=== PATIENT | female | born 1980 | race African-American/Black ===

== ENCOUNTER 2016-12-17 20:57 | Emergency (ER) | payer BC ==
--- NOTE | 2016-12-17 21:09 | ER Document Report ---
ED Medical Screen (RME) - General Stated Complaint: HAND NUMBNESS DIZZY Mode of Arrival: Medic Information source: Emergency Med Personnel Notes: pt presents to the ED for cp, hands/feet hurt, dizzy for the past two weeks. Pt is a diabetic, reports took her insulin right before ems arrived. Denies vomiting, reports some diarrhea. Reports hx of HTN, enlarged heart. Pt reports cough. Has nitro at home but reports she has not taken it because it hasn't hurt for years. I have greeted and performed a rapid initial assessment of this patient. A comprehensive ED assessment and evaluation of the patient, analysis of test results and completion of the medical decision making process will be conducted by additional ED providers. TRAVEL OUTSIDE OF THE [place] IN LAST 30 DAYS: No - Related Data Allergies/Adverse Reactions: Penicillins Allergy (Verified 06/30/16 11:42) onion Allergy (Uncoded 06/30/16 11:42) Past Medical History - Past Medical History Cardiac Medical History: Reports: Hx Hypercholesterolemia, Hx Hypertension - out of Lisinopril for over a week, takes 20mg daily Denies: Hx Congestive Heart Failure, Hx Heart Attack Pulmonary Medical History: Denies: Hx Asthma, Hx Bronchitis, Hx COPD, Hx Pneumonia, Hx Tuberculosis Neurological Medical History: Denies: Hx Seizures Endocrine Medical History: Reports: Hx Diabetes Mellitus Type 2 - on Lantus, she does not have a PCM Renal/ Medical History: Reports: Hx Kidney Stones. Denies: Hx End Stage Renal Disease GI Medical History: Denies: Hx Cirrhosis, Hx Gastroesophageal Reflux Disease, Hx Ulcer Musculoskeltal Medical History: Denies Hx Arthritis, Denies Hx Multiple Sclerosis Psychiatric Medical History: Denies: Hx Bipolar Disorder, Hx Depression, Hx Schizophrenia Past Surgical History: Reports: Hx Cardiac Catheterization, Hx Gynecologic Surgery - Immunizations Hx Diphtheria, Pertussis, Tetanus Vaccination: No
[2016-12-17] MEDS ORDERED: ASPIRIN 81 MG TABLET, CHEWABLE PO ONE (21:10)
[2016-12-17 22:11] LABS: ABSOLUTE BASOPHILS # (AUTO) 0.1 10^3/uL (0.0-0.2); ABSOLUTE EOSINOPHILS # (AUTO) 0.1 10^3/uL (0.0-0.6); ABSOLUTE LYMPHOCYTES (AUTO) 2.8 10^3/uL (0.5-4.7); ABSOLUTE MONOCYTES (AUTO) 0.9 10^3/uL (0.1-1.4); ABSOLUTE NEUT (AUTO) 6.8 10^3/uL (1.7-8.2); BASOPHILS % (AUTO) 0.7 % (0-2); EOSINOPHILS % (AUTO) 0.8 % (0-6); HEMATOCRIT 41.4 % (36.0-47.0); HEMOGLOBIN 13.2 g/dL (12.0-15.5); HGB HCT DIFFERENCE -1.8; LYMPHOCYTES % (AUTO) 26.1 % (13-45); MEAN CORPUSCULAR HGB CONC 31.8 g/dL (32.0-36.0); MEAN CORPUSCULAR VOLUME 85 fl (80-97); MONOCYTES % (AUTO) 8.5 % (3-13); RED BLOOD COUNT 4.89 10^6/uL (3.72-5.28); SEGMENTED NEUTROPHILS % (AUTO) 63.9 % (42-78); WHITE BLOOD COUNT 10.6 10^3/uL (4.0-10.5)
[2016-12-17 22:27] LABS: ALANINE AMINOTRANSFERASE 34 U/L (9-52); ALBUMIN 3.9 g/dL (3.5-5.0); ALKALINE PHOSPHATASE 159 U/L (38-126); ANION GAP 10 (5-19); ASPARTATE AMINO TRANSFERASE 25 U/L (14-36); BILIRUBIN,TOTAL 0.5 mg/dL (0.2-1.3); BLOOD UREA NITROGEN 18 mg/dL (7-20); CALCIUM 9.5 mg/dL (8.4-10.2); CARBON DIOXIDE 29 mmol/L (22-30); CHLORIDE 95 mmol/L (98-107); CREATINE KINASE 59 U/L (30-135); CREATININE RESULT 0.77 mg/dL (0.52-1.25); GLUCOSE 352 mg/dL (75-110); POTASSIUM 3.8 mmol/L (3.6-5.0); SODIUM 133.8 mmol/L (137-145); TOTAL PROTEIN 8.2 g/dL (6.3-8.2)
[2016-12-17 22:38] LABS: APPEARANCE,URINE SLIGHTLY-CLOUDY; BILIRUBIN,URINE NEGATIVE (NEGATIVE); GLUCOSE, URINE >=500 mg/dL (NEGATIVE); KETONES,URINE NEGATIVE (NEGATIVE); LEUKOCYTE ESTERASE,URINE NEGATIVE (NEGATIVE); NITRITE,URINE NEGATIVE (NEGATIVE); PROTEIN,URINE 30 mg/dL (NEGATIVE); UROBILINOGEN,URINE NEGATIVE mg/dL (<2.0)
[2016-12-17 22:39] LABS: CREATINE KINASE MB 0.42 ng/mL (<4.55)
[2016-12-17 22:42] LABS: TROPONIN I < 0.012 ng/mL
--- NOTE | 2016-12-17 23:48 | EKG REPORT ---
SEVERITY:- ABNORMAL ECG - SINUS RHYTHM CONSIDER LEFT VENTRICULAR HYPERTROPHY : Confirmed by: Ashia Dick 17-Dec-2016 23:47:27
--- NOTE | 2016-12-18 01:19 | ER Document Report ---
ED General - General Chief Complaint: Chest Pain Stated Complaint: HAND NUMBNESS DIZZY Mode of Arrival: Medic Notes: Patient is a 36-year-old morbidly obese female with past medical history of poorly controlled type II diabetes who presents with complaints of 2 weeks of progressively worsening generalized fatigue. She also notes intermittent chest pain that she has had a daily basis for "forever" and denies anything is new or different about that chest pain today. Denies any pain at the time of my assessment. Patient states that tonight she began to feel increasingly fatigued and had an episode of chest pain which prompted her to come to the emergency department. She is with her primary care doctor regarding her extremely poorly controlled diabetes. She has not noted that anything improves or worsens her symptoms. Admits that she does not regularly check her blood glucose at home. She has no prior history of HHS or DKA. No history of DVT or pulmonary embolus. She does not use any supplemental estrogen. She denies any shortness of breath, hemoptysis, vomiting, diarrhea, or fever. No headache or neck pain. TRAVEL OUTSIDE OF THE [place] IN LAST 30 DAYS: No - Related Data Allergies/Adverse Reactions: Penicillins Allergy (Verified 06/30/16 11:42) onion Allergy (Uncoded 06/30/16 11:42) Home Medications: Current Home Medications Acyclovir [Acyclovir] 400 mg PO BID 12/18/16 [History] Atorvastatin Calcium [Atorvastatin Calcium] 20 mg PO DAILY 12/18/16 [History] Ergocalciferol (Vitamin D2) [Vitamin D] 1 cap PO DAILY 12/18/16 [History] Glimepiride [Glimepiride] 4 mg PO BID 12/18/16 [History] Losartan/Hydrochlorothiazide [Hyzaar 50-12.5 Tablet] 1 tab PO DAILY 12/18/16 [ History] RX: Insulin Glargine,Hum.rec.anlog [Lantus Insulin 100 Unit/mL] 10 unit SUBCUT QAM 12/18/16 [History] Past Medical History - General Information source: Patient, Emergency Med Personnel - Social History Smoking Status: Never Smoker Chew tobacco use (# tins/day): No Frequency of alcohol use: None Drug Abuse: None Family History: CAD, CVA Patient has suicidal ideation: No Patient has homicidal ideation: No - Past Medical History Cardiac Medical History: Reports: Hx Hypercholesterolemia, Hx Hypertension - out of Lisinopril for over a week, takes 20mg daily Denies: Hx Congestive Heart Failure, Hx Heart Attack Pulmonary Medical History: Denies: Hx Asthma, Hx Bronchitis, Hx COPD, Hx Pneumonia, Hx Tuberculosis Neurological Medical History: Denies: Hx Seizures Endocrine Medical History: Reports: Hx Diabetes Mellitus Type 2 - on Lantus, she does not have a PCM Renal/ Medical History: Reports: Hx Kidney Stones. Denies: Hx End Stage Renal Disease, Hx Peritoneal Dialysis GI Medical History: Denies: Hx Cirrhosis, Hx Gastroesophageal Reflux Disease, Hx Ulcer Musculoskeltal Medical History: Denies Hx Arthritis, Denies Hx Multiple Sclerosis Psychiatric Medical History: Denies: Hx Bipolar Disorder, Hx Depression, Hx Schizophrenia Past Surgical History: Reports: Hx Cardiac Catheterization, Hx Genitourinary Surgery - vaginal surgery age 20, Hx Gynecologic Surgery - Immunizations Hx Diphtheria, Pertussis, Tetanus Vaccination: No Hx Pneumococcal Vaccination: 09/10/13 Review of Systems - Review of Systems Notes: Constitutional: Negative for fever. Positive for generalized fatigue HENT: Negative for sore throat. Eyes: Negative for visual changes. Cardiovascular: Positive for chest pain. Respiratory: Negative for shortness of breath. Gastrointestinal: Negative for abdominal pain, vomiting or diarrhea. Genitourinary: Negative for dysuria. Musculoskeletal: Negative for back pain. Skin: Negative for rash. Neurological: Negative for headaches, weakness or numbness. 10 point ROS negative except as marked above and in HPI. Physical Exam - Vital signs Vitals: Temp Pulse Resp BP Pulse Ox 97.2 F 100 16 138/106 H 98 12/17/16 21:08 12/17/16 21:08 12/17/16 21:08 12/17/16 21:08 12/17/16 21:08 Interpretation: Normal Notes: PHYSICAL EXAMINATION: GENERAL: Morbidly obese but in no acute distress HEAD: Atraumatic, normocephalic. EYES: Pupils equal round and reactive to light, extraocular movements intact, sclera anicteric, conjunctiva are normal. ENT: nares patent, oropharynx clear without exudates. Moist mucous membranes. NECK: Normal range of motion, supple without lymphadenopathy LUNGS: Breath sounds clear to auscultation bilaterally and equal. No wheezes rales or rhonchi. HEART: Regular rate and rhythm without murmurs ABDOMEN: Morbidly obese abdomen, Soft, nontender, normoactive bowel sounds. No guarding, no rebound. No masses appreciated. EXTREMITIES: Normal range of motion, no pitting or edema. No cyanosis. NEUROLOGICAL: No focal neurological deficits. Moves all extremities spontaneously and on command. PSYCH: Normal mood, normal affect. SKIN: Warm, Dry, normal turgor, no rashes or lesions noted. Course - Re-evaluation Re-evalutation: 12/18/16 01:17 Presentation of hypoglycemia and generalized fatigue without evidence of diabetic ketoacidosis or hyperosmolar hyperglycemic state on laboratories. Patient well appearing, in no acute distress, vitals within normal limits. No focal infectious symptoms to warrant infectious workup at this time. Tolerating oral intake without difficulty. Patient did also complain of chest pain today which she states is a chronic, daily event for her. Presentation of chest pain in an otherwise well appearing patient. Low clinical suspicion for ACS given clinical history, exam, EKG without ST elevations or depressions, and negative initial troponin. HEART score less than or equal to 3. PE also seems unlikely given clinical history, absence of tachycardia or dyspnea. Patient is PERC criteria negative. CXR without evidence of pneumothorax or pneumonia. No widened mediastinum. Aortic dissection also seems unlikely given history, symmetric pulses, CXR, and vitals. At this time will discharge with return precautions and follow-up recommendations. Verbal discharge instructions given a the bedside and opportunity for questions given. Medication warnings reviewed. Patient is in agreement with this plan and has verbalized understanding of return precautions and the need for primary care follow-up in the next 24-72 hours. - Vital Signs Vital signs: Temp Pulse Resp BP Pulse Ox 97.2 F 88 18 140/98 H 100 12/17/16 21:08 12/18/16 02:00 12/18/16 02:00 12/18/16 02:00 12/18/16 02:00 - Laboratory Result Diagrams: 12/17/16 21:45 12/17/16 21:45 Laboratory results interpreted by me: 12/17/16 12/17/16 12/17/16 21:45 21:45 21:47 WBC 10.6 H MCHC 31.8 L Sodium 133.8 L Chloride 95 L Glucose 352 H POC Glucose 317 H Alkaline Phosphatase 159 H Urine Protein Urine Glucose (UA) Urine Ascorbic Acid 12/17/16 22:18 WBC MCHC Sodium Chloride Glucose POC Glucose Alkaline Phosphatase Urine Protein 30 H Urine Glucose (UA) >=500 H Urine Ascorbic Acid 20 H - Diagnostic Test Radiology reviewed: Image reviewed, Reports reviewed Radiology results interpreted by me: 12/18/16 01:18 Chest x-ray: No acute infiltrate - EKG Interpretation by Me Additional EKG results interpreted by me: 12/18/16 01:18 Normal sinus rhythm. Rate 94. No ST elevations or depressions. QTC is 461. Discharge - Discharge Clinical Impression: Hyperglycemia Chest pain Qualifiers: Chest pain type: unspecified Qualified Code(s): R07.9 - Chest pain, unspecified Condition: Good Disposition: HOME, SELF-CARE Additional Instructions: You need to followup urgently with your primary care doctor as your blood sugars were dangerously high today. You did not have any evidence of a dangerous condition associated with these blood sugars at this time. However, it is very important that you get your blood sugars under control. Please take all of your medications exactly as directed. You should avoid foods that are high in carbohydrates and sugary foods. Losing weight will also help to better control your blood sugars. Please return to emergency department immediately if you develop weakness, persistent vomiting, confusion, or any other symptoms that are concerning to you. You were seen today for chest pain. The exact cause of your pain is unclear. However, based on your cardiac enzyme testing, chest x-ray, and EKG it does not appear that it is from an immediately life-threatening cause at this time. Although your testing here is normal is critical that you follow-up with your primary care physician for continued evaluation of this chest pain and possible stress testing. I recommended you see your physician within the next 24-48 hours to be evaluated for consideration of a stress test. Please return to emergency department immediately if you have worsening of your chest pain, shortness of breath, vomiting, become unable to exert yourself due to pain or difficulty breathing, you pass out, or have any pain that radiates into your arms, jaw, or back. Please also return if you have any additional symptoms that are concerning to you. Forms: Return to Work
[2016-12-18 02:12] VITALS: BP 140/98
== END 2016-12-18 02:03 | disposition home or self-care (01) ==
LOC: ER 20:57
DX: R07.9 Chest pain, unspecified (principal); R53.83 Other fatigue; E11.65 Type 2 diabetes mellitus with hyperglycemia; I10 Essential (primary) hypertension; E66.01 Morbid (severe) obesity due to excess calories; Z68.41 Body mass index [BMI] 40.0-44.9, adult; Z88.0 Allergy status to penicillin; Z91.018 Allergy to other foods; Z82.49 Family history of ischemic heart disease and other diseases of the circulatory system
CPT/HCPCS: 36415; 71020; 80053; 81001; 82550; 82553; 82962; 84484; 84703; 85025; 93005; 93010; 99285

== ENCOUNTER 2017-07-10 07:21 | Emergency (ER) | payer SELFPAY ==
[2017-07-10] MEDS ORDERED: BUPIVACAINE HCL 0.5 % INJ/PF 30 ML SDV INJ ONE (08:30)
[2017-07-10] MEDS ORDERED: LIDOCAINE 1% INJ-PF (10 MG/ML) 30 ML SDV INFIL ONE (08:30)
[2017-07-10] MEDS ORDERED: LIDOCAINE 4%/TETRACAINE 0.5%/EPI 0.18% 5 ML TOPICAL SOLN TOP ONE (08:30)
[2017-07-10] MEDS ORDERED: HYDROMORPHONE HCL INJ/PF 2 MG/ML AMPULE IM ONE (08:30)
[2017-07-10] MEDS ORDERED: ONDANSETRON 4 MG TAB.RAPDIS PO ONE (08:30)
[2017-07-10] MEDS ORDERED: SULFAMETHOXAZOLE/TRIMETHOPRIM 800-160 MG TABLET PO ONE (08:56)
--- NOTE | 2017-07-10 10:07 | ER Document Report ---
ED General - General Chief Complaint: Other Stated Complaint: GROIN PAIN Time Seen by Provider: 07/10/17 08:35 TRAVEL OUTSIDE OF THE [place] IN LAST 30 DAYS: No - HPI Patient complains to provider of: bartholin abscess Notes: Patient coming in for complaint of cough and abscess in the vaginal region. Patient states history of diabetes history of multiple abscesses in the past. Patient denies any fevers chills nausea vomiting. Patient states she has had at least for I&D is done. Patient states nonproductive cough ongoing for greater than a month. Patient states no production. Patient is resting comfortably upon my evaluation. - Related Data Allergies/Adverse Reactions: Penicillins Allergy (Verified 07/10/17 07:32) onion Allergy (Uncoded 07/10/17 07:32) Past Medical History - Social History Smoking Status: Former Smoker Chew tobacco use (# tins/day): No Frequency of alcohol use: None Drug Abuse: None Family History: CAD, CVA - Past Medical History Cardiac Medical History: Reports: Hx Hypercholesterolemia, Hx Hypertension - out of Lisinopril for over a week, takes 20mg daily Denies: Hx Congestive Heart Failure, Hx Heart Attack Pulmonary Medical History: Denies: Hx Asthma, Hx Bronchitis, Hx COPD, Hx Pneumonia, Hx Tuberculosis Neurological Medical History: Denies: Hx Seizures Endocrine Medical History: Reports: Hx Diabetes Mellitus Type 2 - on Lantus, she does not have a PCM Renal/ Medical History: Reports: Hx Kidney Stones. Denies: Hx End Stage Renal Disease, Hx Peritoneal Dialysis GI Medical History: Denies: Hx Cirrhosis, Hx Gastroesophageal Reflux Disease, Hx Ulcer Musculoskeltal Medical History: Denies Hx Arthritis, Denies Hx Multiple Sclerosis Psychiatric Medical History: Denies: Hx Bipolar Disorder, Hx Depression, Hx Schizophrenia Past Surgical History: Reports: Hx Cardiac Catheterization, Hx Genitourinary Surgery - vaginal surgery age 20, Hx Gynecologic Surgery - Immunizations Hx Diphtheria, Pertussis, Tetanus Vaccination: No Hx Pneumococcal Vaccination: 09/10/13 Review of Systems - Review of Systems Constitutional: No symptoms reported EENT: No symptoms reported Cardiovascular: No symptoms reported Respiratory: No symptoms reported Gastrointestinal: No symptoms reported Genitourinary: Other - Vaginal abscess Female Genitourinary: No symptoms reported Musculoskeletal: No symptoms reported Skin: No symptoms reported Hematologic/Lymphatic: No symptoms reported Neurological/Psychological: No symptoms reported Physical Exam - Vital signs Vitals: Temp Pulse Resp BP Pulse Ox 98.2 F 99 18 150/102 H 98 07/10/17 07:30 07/10/17 07:30 07/10/17 07:30 07/10/17 07:30 07/10/17 07:30 Interpretation: Normal - General General appearance: Appears well, Alert - HEENT Head: Normocephalic, Atraumatic Eyes: Normal Pupils: PERRL - Respiratory Respiratory status: No respiratory distress Chest status: Nontender Breath sounds: Normal Chest palpation: Normal - Cardiovascular Rhythm: Regular Heart sounds: Normal auscultation Murmur: No - Abdominal Inspection: Normal Distension: No distension Bowel sounds: Normal Tenderness: Nontender Organomegaly: No organomegaly - Genitourinary External exam: Other - Patient with a Bartholin gland abscess on the left labia - Back Back: Normal, Nontender - Extremities General upper extremity: Normal inspection, Nontender, Normal color, Normal ROM , Normal temperature General lower extremity: Normal inspection, Nontender, Normal color, Normal ROM , Normal temperature, Normal weight bearing. No: Ronal's sign - Neurological Neuro grossly intact: Yes Cognition: Normal Orientation: AAOx4 [place] Coma Scale Eye Opening: Spontaneous [place] Coma Scale Verbal: Oriented [place] Coma Scale Motor: Obeys Commands Marsha Coma Scale Total: 15 Speech: Normal Motor strength normal: LUE, RUE, LLE, RLE Sensory: Normal - Psychological Associated symptoms: Normal affect, Normal mood - Skin Skin Temperature: Warm Skin Moisture: Dry Skin Color: Normal Course - Re-evaluation Re-evalutation: 07/10/17 14:15 I&D performed without difficulty. Patient's lungs are clear. Will discharge patient home. - Vital Signs Vital signs: Temp Pulse Resp BP Pulse Ox 98.3 F 90 16 141/99 H 97 07/10/17 07:30 07/10/17 10:30 07/10/17 10:30 07/10/17 10:30 07/10/17 10:30 Procedures - Incision and Drainage Left Labia Type: Simple Anesthetic type: 1% Lidocaine, 0.5% Bupivacaine mL's of anesthetic: 5 Blade size: 11 I&D procedure: Chlorprep applied Incision Method: Incision made by scalpel Amount/type of drainage: 8 cc of pus Notes: 07/10/17 14:16 Patient's abscess was flushed to clear Wurd catheter placed Discharge - Discharge Clinical Impression: Bartholin's gland abscess Condition: Good Disposition: HOME, SELF-CARE Instructions: Bartholin Gland Cyst or Abscess ([facility]), Ob-Multimedia Coordinator Doctors, Post Incision and Drainage, Trimethoprim-Sulfa ([facility]) Additional Instructions: Take medication as prescribed. Return to ER symptoms worsen. Highly recommend that she had the Mercer catheter removed in 5 days if it does not fall out on its own. You may follow-up with the COUNTING MACHINE OPERATOR is listed or you can return to the ER to have the catheter removed please note that returns to ER with involving other ER visit wait time etc. Prescriptions: Sulfamethoxazole/Trimethoprim [Bactrim 400-80 mg Tablet] 1 each PO BID 7 Days tablet Tramadol HCl [Ultram 50 mg Tablet] 50 mg PO ASDIR PRN #14 tablet PRN Reason: Forms: Return to Work Referrals: LUCIO ENRIQUE PA-C [Primary Care Provider] - Follow up as needed
[2017-07-10 10:51] VITALS: BP 141/99
== END 2017-07-10 10:30 | disposition home or self-care (01) ==
LOC: ER 07:21
PROC: 0U9L0ZZ Drainage of Vestibular Gland, Open Approach (ICD-10-PCS; principal; 2017-07-10)
DX: N75.1 Abscess of Bartholin's gland (principal); R05 Cough; E11.9 Type 2 diabetes mellitus without complications; I10 Essential (primary) hypertension; Z88.0 Allergy status to penicillin; Z91.018 Allergy to other foods; Z87.891 Personal history of nicotine dependence
CPT/HCPCS: 99283; 96372; 56420; S0119; J1170; J3490

== ENCOUNTER 2017-09-09 10:57 | Inpatient (IN) | payer SELFPAY ==
[2017-09-09] MEDS ORDERED: HYDROCHLOROTHIAZIDE 12.5 MG CAPSULE PO ONE (11:39)
[2017-09-09] MEDS ORDERED: MORPHINE SULFATE 10 MG/ML INJ IV ONE (11:39)
[2017-09-09] MEDS ORDERED: GLIMEPIRIDE 4 MG TABLET PO ONE (11:39)
[2017-09-09] MEDS ORDERED: LOSARTAN POTASSIUM 50 MG TABLET PO ONE (11:39)
--- NOTE | 2017-09-09 11:44 | ER Document Report ---
HPI - HPI Patient complains to provider of: Abscess Onset: Last week Onset/Duration: Worse Quality of pain: Sharp Pain Level: 4 Context: Patient complains of abscess to left buttock into the left perirectal area. Patient denies any fever. Patient reports a history of diabetes. Patient states she has been out of her medication for several months because she cannot afford the refills due to a lapse in her insurance. Associated Symptoms: Other - Abscess to buttock. denies: Fever Exacerbated by: Movement Relieved by: Denies Similar symptoms previously: No Recently seen / treated by doctor: No - ROS ROS below otherwise negative: Yes Systems Reviewed and Negative: Yes All other systems reviewed and negative - CONSTITUTIONAL Constitutional: DENIES: Fever, Chills - EENT EENT: DENIES: Sore Throat, Ear Pain, Eye problems - CARDIOVASCULAR Cardiovascular: DENIES: Chest pain - RESPIRATORY Respiratory: DENIES: Trouble Breathing, Coughing - GASTROINTESTINAL Gastrointestinal: REPORTS: Black / Bloody Stools - open areas x2. DENIES: Abdominal Pain - URINARY Urinary: DENIES: Dysuria, Urgency, Frequency - REPRODUCTIVE Reproductive: DENIES: : - MUSCULOSKELETAL Musculoskeletal: DENIES: Extremity pain - DERM Notes: Abscess to buttocks Past Medical History - General Information source: Patient - Social History Smoking Status: Former Smoker Chew tobacco use (# tins/day): No Frequency of alcohol use: None Drug Abuse: None Occupation: [employer] Family History: CAD, CVA Patient has suicidal ideation: No Patient has homicidal ideation: No - Past Medical History Cardiac Medical History: Reports: Hx Hypercholesterolemia, Hx Hypertension - out of Lisinopril for over a week, takes 20mg daily Denies: Hx Congestive Heart Failure, Hx Heart Attack Pulmonary Medical History: Denies: Hx Asthma, Hx Bronchitis, Hx COPD, Hx Pneumonia, Hx Tuberculosis Neurological Medical History: Denies: Hx Seizures Endocrine Medical History: Reports: Hx Diabetes Mellitus Type 2 - on Lantus, she does not have a PCM Renal/ Medical History: Reports: Hx Kidney Stones. Denies: Hx End Stage Renal Disease, Hx Peritoneal Dialysis GI Medical History: Denies: Hx Cirrhosis, Hx Gastroesophageal Reflux Disease, Hx Ulcer Musculoskeltal Medical History: Denies Hx Arthritis, Denies Hx Multiple Sclerosis Psychiatric Medical History: Denies: Hx Bipolar Disorder, Hx Depression, Hx Schizophrenia Past Surgical History: Reports: Hx Cardiac Catheterization, Hx Genitourinary Surgery - vaginal surgery age 20, Hx Gynecologic Surgery - Immunizations Hx Diphtheria, Pertussis, Tetanus Vaccination: No Hx Pneumococcal Vaccination: 09/10/13 Vertical Provider Document - CONSTITUTIONAL Agree With Documented VS: Yes Exam Limitations: No Limitations General Appearance: WD/WN, No Apparent Distress - INFECTION CONTROL TRAVEL OUTSIDE OF THE [place] IN LAST 30 DAYS: No - HEENT HEENT: Atraumatic, Normocephalic - NECK Neck: Normal Inspection, Supple - RESPIRATORY Respiratory: Breath Sounds Normal, No Respiratory Distress O2 Sat by Pulse Oximetry: 99 - CARDIOVASCULAR Cardiovascular: Regular Rate, Regular Rhythm - MUSCULOSKELETAL/EXTREMETIES Musculoskeletal/Extremeties: MAEW - NEURO Level of Consciousness: Awake, Alert, Appropriate Motor/Sensory: No Motor Deficit - DERM Integumentary: Warm, Dry, Abscess Notes: Abscess to left buttock and left perirectal area, patient with mild tenderness with digital rectal exam. DESEAN Joiner as standby Course - Re-evaluation Re-evalutation: 09/09/17 11:43 Call placed for consultation with surgeon, surgeon currently in the case and nurse relayed through OR nurse. Dr. Cifuentes does agree to come and evaluate patient 09/09/17 13:25 Dr. Cifuentes requests consultation with hospitalist for medical management Call placed to Dr. Josue who advises consultation with nurse practitioner Esparto Consulted with [employer] - Vital Signs Vital signs: Temp Pulse Resp BP Pulse Ox 97.4 F 100 20 198/120 H 99 09/09/17 11:04 09/09/17 11:04 09/09/17 11:04 09/09/17 11:04 09/09/17 11:04 - Laboratory Result Diagrams: 09/09/17 12:00 09/09/17 12:00 Laboratory results interpreted by me: 09/09/17 20:20 Labs- Entire Visit 09/09/17 09/09/17 09/09/17 12:00 12:00 12:00 WBC 10.3 RBC 4.82 Hgb 13.5 Hct 41.3 MCV 86 MCH 28.0 MCHC 32.6 RDW 13.3 Plt Count 404 Seg Neutrophils % 71.6 Lymphocytes % 19.8 Monocytes % 6.9 Eosinophils % 0.8 Basophils % 0.9 Absolute Neutrophils 7.4 Absolute Lymphocytes 2.0 Absolute Monocytes 0.7 Absolute Eosinophils 0.1 Absolute Basophils 0.1 Sodium 138.4 Potassium 4.2 Chloride 98 Carbon Dioxide 29 Anion Gap 11 BUN 12 Creatinine 0.64 Est GFR ( Amer) > 60 Est GFR (Non-Af Amer) > 60 Glucose 445 H* POC Glucose Hemoglobin A1c % Calcium 9.3 Total Bilirubin 0.5 Direct Bilirubin 0.4 Neonat Total Bilirubin Not Reportable Neonat Direct Bilirubin Not Reportable Neonat Indirect Bili Not Reportable AST 35 ALT 21 Alkaline Phosphatase 197 H Total Protein 8.1 Albumin 3.8 Serum HCG, Qual NEGATIVE 09/09/17 09/09/17 09/09/17 12:00 15:58 17:51 WBC RBC Hgb Hct MCV MCH MCHC RDW Plt Count Seg Neutrophils % Lymphocytes % Monocytes % Eosinophils % Basophils % Absolute Neutrophils Absolute Lymphocytes Absolute Monocytes Absolute Eosinophils Absolute Basophils Sodium Potassium Chloride Carbon Dioxide Anion Gap BUN Creatinine Est GFR ( Amer) Est GFR (Non-Af Amer) Glucose POC Glucose 323 H 223 H Hemoglobin A1c % 13.9 H Calcium Total Bilirubin Direct Bilirubin Neonat Total Bilirubin Neonat Direct Bilirubin Neonat Indirect Bili AST ALT Alkaline Phosphatase Total Protein Albumin Serum HCG, Qual Discharge - Discharge Clinical Impression: Perirectal abscess Condition: Stable Disposition: ADMITTED OBSERVATION Admitting Provider: Hospitalist Unit Admitted: Medical Floor
[2017-09-09] MEDS ORDERED: LEVOFLOXACIN 750 MG/D5W RTU 750 MG/150 ML RTUPB IV ONE (12:15)
[2017-09-09] MEDS ORDERED: ONDANSETRON HCL INJ/PF 4 MG/2 ML SDV IV ONE (12:26)
[2017-09-09] MEDS ORDERED: ONDANSETRON HCL INJ/PF 4 MG/2 ML SDV ONE (12:27)
[2017-09-09 12:31] LABS: ABSOLUTE BASOPHILS # (AUTO) 0.1 10^3/uL (0.0-0.2); ABSOLUTE EOSINOPHILS # (AUTO) 0.1 10^3/uL (0.0-0.6); ABSOLUTE MONOCYTES (AUTO) 0.7 10^3/uL (0.1-1.4); ABSOLUTE NEUT (AUTO) 7.4 10^3/uL (1.7-8.2); BASOPHILS % (AUTO) 0.9 % (0-2); EOSINOPHILS % (AUTO) 0.8 % (0-6); HEMATOCRIT 41.3 % (36.0-47.0); HEMOGLOBIN 13.5 g/dL (12.0-15.5); HGB HCT DIFFERENCE -0.8; LYMPHOCYTES % (AUTO) 19.8 % (13-45); MEAN CORPUSCULAR HGB CONC 32.6 g/dL (32.0-36.0); MEAN CORPUSCULAR VOLUME 86 fl (80-97); MONOCYTES % (AUTO) 6.9 % (3-13); RED BLOOD COUNT 4.82 10^6/uL (3.72-5.28); RED CELL DISTRIBUTION WIDTH 13.3 % (11.5-14.0); SEGMENTED NEUTROPHILS % (AUTO) 71.6 % (42-78); WHITE BLOOD COUNT 10.3 10^3/uL (4.0-10.5)
[2017-09-09] MEDS ORDERED: DEXTROSE 40% GEL 15 GM TUBE PO PRN ×6 (13:01→18:11)
[2017-09-09] MEDS ORDERED: DEXTROSE 50%-WATER 25 GM/50 ML DISP.SYRIN IV PRN ×6 (13:01→18:11)
[2017-09-09] MEDS ORDERED: GLUCAGON,HUMAN RECOMB 1 MG INJ SUBCUT PRN ×2 (13:01→18:11)
[2017-09-09] MEDS ORDERED: ONDANSETRON 4 MG TAB.RAPDIS PO PRN (13:01)
[2017-09-09 13:02] LABS: ALANINE AMINOTRANSFERASE 21 U/L (9-52); ALBUMIN 3.8 g/dL (3.5-5.0); ALKALINE PHOSPHATASE 197 U/L (38-126); ANION GAP 11 (5-19); ASPARTATE AMINO TRANSFERASE 35 U/L (14-36); BILIRUBIN,DIRECT 0.4 mg/dL (0.0-0.4); BILIRUBIN,TOTAL 0.5 mg/dL (0.2-1.3); BLOOD UREA NITROGEN 12 mg/dL (7-20); CALCIUM 9.3 mg/dL (8.4-10.2); CARBON DIOXIDE 29 mmol/L (22-30); CHLORIDE 98 mmol/L (98-107); CREATININE RESULT 0.64 mg/dL (0.52-1.25); POTASSIUM 4.2 mmol/L (3.6-5.0); SODIUM 138.4 mmol/L (137-145); TOTAL PROTEIN 8.1 g/dL (6.3-8.2)
[2017-09-09 13:11] LABS: GLUCOSE 445 mg/dL (75-110)
[2017-09-09] MEDS ORDERED: METRONIDAZOLE 500 MG/NS RTU 250 MG in CONTAINER,EMPTY 1 EACH IV SCH (13:15)
[2017-09-09] MEDS ORDERED: INSULIN REG, HUMAN 100 UNIT/ML 3 ML VIAL (PYX) SUBCUT ONE ×2 (13:24→16:30)
[2017-09-09] MEDS ORDERED: GLUCAGON,HUMAN RECOMB 1 MG INJ IM PRN (13:36)
[2017-09-09] MEDS: METRONIDAZOLE 500 MG/NS RTU 100 ML IV SCH ×2 (15:00→22:16)
[2017-09-09] MEDS ORDERED: ENOXAPARIN SODIUM INJ 40 MG/0.4 ML DISP.SYRIN SUBCUT ONE (15:00)
[2017-09-09] MEDS ORDERED: AMLODIPINE BESYLATE 10 MG TABLET PO ONE (15:25)
[2017-09-09] MEDS ORDERED: HYDRALAZINE HCL INJ/PF 20 MG/1 ML SDV IV PRN ×2 (15:26→17:28)
--- NOTE | 2017-09-09 16:54 | PDOC CONSULTATION ---
Consultation Consult Date: 09/09/17 Attending physician:: BJORN STARR Consult reason:: medical management dm and HTN History of Present Illness Admission Date/PCP: 09/09/17 12:28 LUCIO ENRIQUE PA-C History of Present Illness: MEMO VEGA is a 37 year old female who is a morbidly obese female who came to the emergency room with persistent rectal abscesses who was seen by surgery. Since patient had a breakfast on the way to the ER her surgery was postponed until in the morning. Patient is a noncompliant diabetic has not been taking her insulin, high blood pressure medication due to no medical insurance. Patient has past medical history malignant hypertension, insulin- dependent diabetes poorly controlled, morbidly obesity, hydronephrosis, cardiomegaly, renal insufficiency, hyperkalemia, chronic chest pain. In the ER patient had a normal white count hemoglobin was stable. Electrolytes were stable except for glucose was 445, hemoglobin A1c was 13.9, calcium was 9.3 alkaline Willam was 197 patient had a negative test. Denies shortness of breath, chest pain, dizziness, lightheadedness, no nausea vomiting or constipation. Her only complaint is she has pain on her buttocks and rectal area. Blood pressure in the ER was found to be systolic was 208/110 Past Medical History Cardiac Medical History: Reports: Coronary Artery Disease, Hyperlipidema, Hypertension - out of Lisinopril for over a week, takes 20mg daily Denies: Congestive Heart Failure, Myocardial Infarction Pulmonary Medical History: Denies: Asthma, Bronchitis, Chronic Obstructive Pulmonary Disease (COPD), Pneumonia, Tuberculosis Neurological Medical History: Denies: Seizures Endocrine Medical History: Reports: Diabetes Mellitus Type 2 - on Lantus, she does not have a PCM, Obesity Renal/ Medical History: Reports: Chronic Kidney Disease Denies: End Stage Renal Disease GI Medical History: Reports: Gastroesophageal Reflux Disease Denies: Cirrhosis Musculoskeltal Medical History: Denies: Arthritis Psychiatric Medical History: Denies: Bipolar Disorder, Depression Hematology: Denies: Anemia, Bleeding Tendencies Past Surgical History Past Surgical History: Reports: Cardiac Catheterization Social History Smoking Status: Never Smoker Frequency of Alcohol Use: None Hx Recreational Drug Use: No Drugs: None Hx Prescription Drug Abuse: No - Advance Directive Resuscitation Status: Full Code Family History Family History: CAD, CVA Parental Family History Reviewed: Yes Children Family History Reviewed: No Sibling(s) Family History Reviewed.: No Medication/Allergy Home Medications: No Home Medications 09/09/17 Allergies/Adverse Reactions: Penicillins Allergy (Verified 07/10/17 07:32) onion Allergy (Uncoded 07/10/17 07:32) Review of Systems Constitutional: ABSENT: chills, fever(s), headache(s), weight gain, weight loss Eyes: ABSENT: visual disturbances Ears: ABSENT: hearing changes Cardiovascular: PRESENT: dyspnea on exertion, edema, orthropnea Respiratory: ABSENT: cough, hemoptysis Gastrointestinal: ABSENT: abdominal pain, constipation, diarrhea, hematemesis, hematochezia, nausea, vomiting Genitourinary: PRESENT: as per HPI Musculoskeletal: ABSENT: joint swelling Integumentary: PRESENT: as per HPI, wounds Neurological: ABSENT: abnormal gait, abnormal speech, confusion, dizziness, focal weakness, syncope Psychiatric: ABSENT: anxiety, depression, homidical ideation, suicidal ideation Endocrine: ABSENT: cold intolerance, heat intolerance, polydipsia, polyuria Hematologic/Lymphatic: ABSENT: easy bleeding, easy bruising Physical Exam Vital Signs: Temp Pulse Resp BP Pulse Ox 98.3 F 84 16 150/102 H 100 09/09/17 16:08 09/09/17 16:08 09/09/17 16:08 09/09/17 16:08 09/09/17 16:08 General appearance: PRESENT: no acute distress, morbidly obese, well-developed, well-nourished Head exam: PRESENT: atraumatic, normocephalic Eye exam: PRESENT: conjunctiva pink, EOMI, PERRLA. ABSENT: scleral icterus Ear exam: PRESENT: normal external ear exam Mouth exam: PRESENT: moist, tongue midline Neck exam: ABSENT: carotid bruit, JVD, lymphadenopathy, thyromegaly Respiratory exam: PRESENT: clear to auscultation aashish. ABSENT: rales, rhonchi, wheezes Cardiovascular exam: PRESENT: RRR. ABSENT: diastolic murmur, rubs, systolic murmur Pulses: PRESENT: normal dorsalis pedis pul Vascular exam: PRESENT: normal capillary refill Rectal exam: PRESENT: deferred, tenderness, other - Patient has 2 perirectal abscess Assessment & Plan - Diagnosis (1) Malignant hypertension Is this a current diagnosis for this admission?: Yes Plan: Patient's blood pressure has decreased in the ER suspect due to pain medication. Will continue to monitor and treat appropriately with antihypertensives with parameters to hold his systolic blood pressure is less than 120 and to notify MD if systolic blood pressures greater than 200. (2) Perirectal abscess Is this a current diagnosis for this admission?: Yes Plan: Defer to surgery. Pain management dressing changes and antibiotics and home health needs per attending (3) Acute renal insufficiency Is this a current diagnosis for this admission?: No (4) Diabetes mellitus with hyperglycemia Qualifiers: Diabetes mellitus type: type 2 Diabetes mellitus fpc insulin use: unspecified fpc insulin use status Is this a current diagnosis for this admission?: Yes Plan: Plan to check blood sugars every 2 hours until patient becomes within range of her sliding scale insulin. They are to notify hospitalists if blood sugars are >250 from more orders. Start patient back on her Lantus 40 units in the morning 40 units in the evening. Hypoglycemic protocol. BMP in a.m. (5) Morbid obesity with body mass index of 40.0-49.9 Is this a current diagnosis for this admission?: Yes Plan: Encourage better control of her diabetes, increase activity patient lives a sedentary lifestyle. Hostile modifications for slow steady weight loss encouraged for healthier lifestyle (6) Obesity hypoventilation syndrome Is this a current diagnosis for this admission?: No Plan: Puts patient at high risk for being put to sleep with anesthesia - Plan Summary Plan Summary: Kindly appreciate consult we will follow for medical management.
[2017-09-09] MEDS ORDERED: 1/2 NORMAL SALINE 1,000 ML IV PRN (17:23)
[2017-09-09] MEDS ORDERED: HYDROCHLOROTHIAZIDE 50 MG TABLET PO ONE (17:27)
[2017-09-09] MEDS: OXYCODONE-ACETAMINOPHEN 5-325 MG TABLET PO PRN (17:46)
[2017-09-09] MEDS: NORMAL SALINE 1000 ML 1,000 ML IV PRN (17:48)
[2017-09-09] MEDS: INSULIN REG, HUMAN 100 UNIT/ML 3 ML VIAL (PYX) SUBCUT PRN (18:59)
[2017-09-09] MEDS ORDERED: INSULIN GLARGINE,HUM.REC.ANLOG 300 UNIT/3 ML INSULN.PEN SUBCUT SCH (22:00)
[2017-09-09] MEDS: AMLODIPINE BESYLATE 10 MG TABLET PO SCH (22:15)
[2017-09-09] MEDS: INSULIN GLARGINE,HUM.REC.ANLOG 300 UNIT/3 ML INSULN.PEN SUBCUT SCH (22:20)
[2017-09-10] MEDS: NORMAL SALINE 1000 ML 1,000 ML IV PRN (05:48)
[2017-09-10] MEDS: METRONIDAZOLE 500 MG/NS RTU 100 ML IV SCH ×3 (05:48→22:17)
--- NOTE | 2017-09-10 08:50 | Physician Advisory Note ---
Physician Advisor ProgressNote .: Pursuant to the plan for [facility], I have reviewed the medical record for this patient. Physician Advisor Statement: Please consider when documentin. "Acute renal insufficiency" does not code to anything. If pt has acute increase in Cr by more than 0.3 mg/dL, there is "Acute Kidney Injury", or " Acute Renal Failure", & we need to state that & document the likely cause. ( Or if pt has not had that much Cr increase, we can say that OTIS/ARF was ruled out.) 2. "Malignant HTN" is an outdated term that no longer means anything different than "essential HTN" when coded. If pt has kPP795+ &/or tNF253+ , without associated signs/sx -> "HTNive urgency" is now the accepted term. If pt has oJI716+ &/or iQD371+ , & signs/sx of possible organ damage, such as acute neuro dx, BIGGS, CP, SOB, acute exac of CHF, ARF, ... -> "Hypertensive emergency" is now the accepted term, & we need documentation of what s/s were caused by the HTN. Status: appropriately Outpt Obs at present. If she needs ongoing hospital tx/ monitoring, please document clinical reasons/concerns/risks. Thanks, & feel free to text/call/email with ?maribel ,
[2017-09-10 08:58] LABS: ANION GAP 12 (5-19); BLOOD UREA NITROGEN 11 mg/dL (7-20); CALCIUM 8.8 mg/dL (8.4-10.2); CARBON DIOXIDE 26 mmol/L (22-30); CHLORIDE 101 mmol/L (98-107); GLUCOSE 116 mg/dL (75-110); POTASSIUM 4.1 mmol/L (3.6-5.0); SODIUM 138.9 mmol/L (137-145)
[2017-09-10] MEDS: OXYCODONE-ACETAMINOPHEN 5-325 MG TABLET PO PRN ×2 (09:25→17:54)
[2017-09-10] MEDS ORDERED: BUPIVACAINE HCL 0.25 % INJ/PF (2.5 MG/1 ML) 30 ML VIAL ONE (09:51)
[2017-09-10] MEDS ORDERED: FENTANYL CITRATE INJ/PF 100 MCG/2 ML AMPUL ONE (10:05)
[2017-09-10] MEDS ORDERED: ONDANSETRON HCL INJ/PF 4 MG/2 ML SDV ONE (10:06)
[2017-09-10] MEDS ORDERED: MIDAZOLAM 2 MG/2 ML INJ ONE (10:06)
[2017-09-10] MEDS ORDERED: DEXAMETHASONE SOD PHOSPHATE INJ 4 MG/1 ML VIAL ONE (10:06)
[2017-09-10] MEDS ORDERED: PROPOFOL INJ 200 MG/20 ML VIAL IV ONE (10:07)
[2017-09-10] MEDS ORDERED: DEXMEDETOMIDINE INJ 80 MCG/20 ML VIAL IV ONE (10:18)
[2017-09-10] MEDS ORDERED: ACETAMINOPHEN 100 ML IV ONE (10:18)
[2017-09-10] MEDS ORDERED: FENTANYL CITRATE INJ/PF 100 MCG/2 ML AMPUL IV PRN ×3 (11:15)
[2017-09-10] MEDS ORDERED: MEPERIDINE HCL/PF INJ 25 MG/1 ML DISP.SYRIN IV PRN (11:15)
[2017-09-10] MEDS ORDERED: PROMETHAZINE HCL INJ 25 MG/1 ML VIAL IV PRN ×2 (11:15)
[2017-09-10] MEDS ORDERED: OXYCODONE-ACETAMINOPHEN 5-325 MG TABLET PO PRN ×2 (11:15)
[2017-09-10] MEDS ORDERED: DIPHENHYDRAMINE HCL 50 MG/ML VIAL IV PRN (11:15)
[2017-09-10] MEDS ORDERED: MORPHINE SULFATE 10 MG/ML INJ IV PRN ×2 (11:15→11:39)
[2017-09-10] MEDS ORDERED: ONDANSETRON HCL INJ/PF 4 MG/2 ML SDV IV PRN (11:40)
--- NOTE | 2017-09-10 11:44 | PDOC PROGRESS REPORT ---
Subjective Progress Note for:: 09/10/17 Reason For Visit: LEFT RUPA RECTAL ABSCESS Patient has been kept n.p.o. overnight. She had an echocardiogram this morning which showed preserved ejection fraction. Her fever and hyper glycemia have improved. Physical Exam Vital Signs: Temp Pulse Resp BP Pulse Ox 97.8 F 87 20 148/95 H 99 09/10/17 09:41 09/10/17 09:41 09/10/17 09:41 09/10/17 09:41 09/10/17 09:41 Intake & Output 09/09/17 09/10/17 09/11/17 06:59 06:59 06:59 Intake Total 1400 300 Output Total 1025 Balance 1400 -725 Weight 121.2 kg General appearance: PRESENT: mild distress Rectal exam: PRESENT: other - Patient examined of the right lateral decubitus position left side up. There is a large left buttock abscess mid field; there is a small abscess towards the perianal region. Results Laboratory Results: 09/10/17 08:36 09/10/17 08:36 Sodium 138.9 Potassium 4.1 Chloride 101 Carbon Dioxide 26 Anion Gap 12 BUN 11 Creatinine 0.60 Est GFR ( Amer) > 60 Est GFR (Non-Af Amer) > 60 Glucose 116 H Calcium 8.8 Assessment & Plan - Diagnosis (1) Perirectal abscess Is this a current diagnosis for this admission?: Yes Plan: Impression: Undrained large left buttock abscess; undrained left anterior lateral perianal abscess Recommendations: 1. Proceed to the operating room for incision and drainage debridement and packing of wounds left buttock. 2. I spoke with Dr. Vasquez, anesthesiologist, who agrees with plan.
[2017-09-10] MEDS: INSULIN GLARGINE,HUM.REC.ANLOG 300 UNIT/3 ML INSULN.PEN SUBCUT SCH ×2 (11:49→22:08)
--- NOTE | 2017-09-10 11:54 | Operative Report ---
Operative Report DATE OF SURGERY: 09/10/17 PREOPERATIVE DIAGNOSIS: Left buttock and perianal abscesses POSTOPERATIVE DIAGNOSIS: Same OPERATION: 1. Examination under anesthesia. 2. Drainage, excisional debridement and packing of left buttock abscess 10 cm from anal verge. 3. Drainage, debridement, and packing of left anterior lateral perianal abscess 3 cm from anal verge SURGEON: MARY ARROYO ANESTHESIA: GA TISSUE REMOVED OR ALTERED: Nonviable skin, infected subcutaneous tissue COMPLICATIONS: None ESTIMATED BLOOD LOSS: 75 cc INTRAOPERATIVE FINDINGS: See below PROCEDURE: The patient was seen in the preop holding area and taken to the main operating room where general anesthesia was induced. She was then rotated onto her abdomen, prone jackknife position buttock exposed. The left buttock was taped laterally exposing the perianal tissue and the medial aspect of the left buttock. The buttock and perineum were prepped and draped sterile fashion. Surgical plan and surgical timeout were conducted. The findings are significant for a necrotic skin overlying a large left buttock abscess approximately 10 cm from the anal verge. There was a second abscess in the left anterior lateral position approximately 3 cm from the anal verge. I dilated up the anal canal with 1 2 then 3 adult fingers. Inserted the bullet anoscope and examined the anal verge, the anal canal up to the dentate line. I examined the anal canal carefully, and there was no visible or palpable evidence of a fistula. I did not pursue any further indication as we were prepaired for drainage of acute infection. We proceeded to debride the left buttock abscess first. A #10 blade was used to excise a hole approximately 3 cm in diameter. I then proceeded to evacuate purulent discharge, then using the 15 blade, removed approximately 5 g of nonviable, woody subcutaneous tissue in a circumferential fashion. The undermined rounding skin for approximately 6 cm. Wound irrigated with a liter saline. Hemostasis was achieved with cautery. There was no evidence of tracking of the abscess cavity. Clinically this resembled an MRSA infection. A chunk of nonviable fat was sent to pathology for Gram stain, C&S. Wound was irrigated a final time and packed with an entire bottle of half inch iodoform packing. We now turned our attention to the perianal abscess. This was excised with a # 10 blade down to subcutaneous tissue. Final diameter of this wound was approximately 2 cm in diameter. Subcutaneous loculations broken up. These were similar to the left buttock abscess. I gingerly explored this cavity to see if it communicated mechanically with the anal canal and it did not. The wound was irrigated, and packed with small portion of half inch iodoform packing. She tolerated procedure well, extubated, taken to recovery room stable condition.
[2017-09-10] MEDS: KETOROLAC TROMETHAMINE INJ/PF 30 MG/1 ML SDV IV PRN (12:54)
[2017-09-10] MEDS ORDERED: SUCCINYLCHOLINE CHLORIDE INJ 200 MG/10 ML VIAL ONE (13:26)
[2017-09-10 14:28] LABS: ANION GAP 11 (5-19); BLOOD UREA NITROGEN 12 mg/dL (7-20); CALCIUM 8.9 mg/dL (8.4-10.2); CARBON DIOXIDE 25 mmol/L (22-30); CHLORIDE 100 mmol/L (98-107); CREATININE RESULT 0.65 mg/dL (0.52-1.25); GLUCOSE 223 mg/dL (75-110); POTASSIUM 4.8 mmol/L (3.6-5.0); SODIUM 135.9 mmol/L (137-145)
[2017-09-10] MEDS: DOCUSATE SODIUM 100 MG CAPSULE PO SCH (17:15)
[2017-09-10] MEDS: INSULIN REG, HUMAN 100 UNIT/ML 3 ML VIAL (PYX) SUBCUT PRN ×2 (17:15→22:51)
[2017-09-10] MEDS: AMLODIPINE BESYLATE 10 MG TABLET PO SCH (22:14)
[2017-09-11] MEDS: METRONIDAZOLE 500 MG/NS RTU 100 ML IV SCH (05:19)
[2017-09-11] MEDS: KETOROLAC TROMETHAMINE INJ/PF 30 MG/1 ML SDV IV PRN ×3 (06:46→23:28)
[2017-09-11] MEDS: OXYCODONE-ACETAMINOPHEN 5-325 MG TABLET PO PRN ×3 (09:13→22:15)
[2017-09-11] MEDS: DOCUSATE SODIUM 100 MG CAPSULE PO SCH ×2 (09:13→18:03)
[2017-09-11] MEDS: INSULIN REG, HUMAN 100 UNIT/ML 3 ML VIAL (PYX) SUBCUT PRN ×4 (09:14→21:39)
[2017-09-11] MEDS: INSULIN GLARGINE,HUM.REC.ANLOG 300 UNIT/3 ML INSULN.PEN SUBCUT SCH ×2 (09:14→21:21)
--- NOTE | 2017-09-11 10:49 | PDOC PROGRESS REPORT ---
Subjective Progress Note for:: 09/11/17 Subjective:: Patient is seen on morning rounds resting in bed comfortably postop day 1 after having a left buttocks and perianal abscess incision and drainage by Dr. Valera. She reports generalized fatigue and body aches. She also complains of slight swelling to her left upper extremity. She denies pain or reduced range of motion to the extremity. She denies fever, chills, chest pain, cough, abdominal pain, nausea and vomiting. Reason For Visit: LEFT RUPA RECTAL ABSCESS Physical Exam Vital Signs: Temp Pulse Resp BP Pulse Ox 97.6 F 77 16 136/89 H 96 09/11/17 07:59 09/11/17 07:59 09/11/17 07:59 09/11/17 07:59 09/11/17 07:59 Intake & Output 09/10/17 09/11/17 09/12/17 06:59 06:59 06:59 Intake Total 1400 3055 Output Total 4900 Balance 1400 -1845 Weight 121.2 kg 122.1 kg General appearance: PRESENT: no acute distress, morbidly obese, well-developed, well-nourished Head exam: PRESENT: atraumatic, normocephalic Eye exam: PRESENT: conjunctiva pink, EOMI, PERRLA. ABSENT: scleral icterus Ear exam: PRESENT: normal external ear exam Mouth exam: PRESENT: moist, tongue midline Neck exam: ABSENT: carotid bruit, JVD, lymphadenopathy, thyromegaly Respiratory exam: PRESENT: clear to auscultation aashish, symmetrical, unlabored. ABSENT: rales, rhonchi, wheezes Cardiovascular exam: PRESENT: RRR. ABSENT: diastolic murmur, rubs, systolic murmur Pulses: PRESENT: normal dorsalis pedis pul Vascular exam: PRESENT: normal capillary refill GI/Abdominal exam: PRESENT: normal bowel sounds, soft. ABSENT: distended, guarding, mass, organolmegaly, rebound, tenderness Rectal exam: PRESENT: deferred Extremities exam: PRESENT: full ROM, +1 edema - LUE. ABSENT: calf tenderness, clubbing, pedal edema Neurological exam: PRESENT: alert, awake, oriented to person, oriented to place , oriented to time, oriented to situation, CN II-XII grossly intact. ABSENT: motor sensory deficit Psychiatric exam: PRESENT: appropriate affect, normal mood. ABSENT: homicidal ideation, suicidal ideation Skin exam: PRESENT: dry, intact - Surgical wounds not examined, warm. ABSENT: cyanosis, rash Results Laboratory Results: 09/10/17 13:45 09/10/17 13:45 Sodium 135.9 L Potassium 4.8 Chloride 100 Carbon Dioxide 25 Anion Gap 11 BUN 12 Creatinine 0.65 Est GFR ( Amer) > 60 Est GFR (Non-Af Amer) > 60 Glucose 223 H Calcium 8.9 09/10/17 11:17 Perirectal Gram Stain - Final Assessment & Plan - Diagnosis (1) Hypertensive urgency Is this a current diagnosis for this admission?: Yes Plan: Patient's blood pressure is better controlled at present, though remains lightly elevated and will require follow-up for additional adjustments of blood pressure medications and consideration of addition of secondary agent. There is no evidence of end organ damage at this time. She is currently managed with Norvasc 10 mg nightly. At this time, patient is medically stable for discharge, however, primary plan per surgery. Should she remain inpatient overnight and blood pressure continues to be elevated, we will add hydrochlorothiazide in the morning. (2) Perirectal abscess Is this a current diagnosis for this admission?: Yes Plan: Postop day 1 after surgical I&D with debridement per Dr. Valera. Pain management, wound care, and antibiotics per surgery. 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 We will increase Lantus slightly to 41 units twice daily with Humalog for sliding scale insulin coverage. Will ask the land use planner and the patient navigator to meet with the patient to discuss community resources, insurance and financial assistance, and establishing with a primary care provider. (4) Morbid obesity with body mass index of 40.0-49.9 Is this a current diagnosis for this admission?: Yes Plan: Encouraged lifestyle modifications to better manage her diabetes, hypertension, and weight. Pt is not receptive at this time secondary to pain. (5) Obesity hypoventilation syndrome Is this a current diagnosis for this admission?: No Plan: Increased risk of respiratory depression/failure secondary to narcotic pain management. Will monitor closely and recommend minimal opiates. - Time Time Spent with patient: 15-24 minutes Anticipated discharge: Home
[2017-09-11] MEDS: METRONIDAZOLE 500 MG TABLET PO SCH ×2 (13:26→21:20)
--- NOTE | 2017-09-11 15:06 | PDOC PROGRESS REPORT ---
Subjective Progress Note for:: 09/11/17 Subjective:: The patient is without complaints. Reason For Visit: LEFT RUPA RECTAL ABSCESS Physical Exam Vital Signs: Temp Pulse Resp BP Pulse Ox 98.1 F 84 18 149/98 H 98 09/11/17 11:41 09/11/17 11:41 09/11/17 11:41 09/11/17 11:41 09/11/17 11:41 Intake & Output 09/10/17 09/11/17 09/12/17 06:59 06:59 06:59 Intake Total 1400 3055 780 Output Total 4900 400 Balance 1400 -1845 380 Weight 121.2 kg 122.1 kg General appearance: PRESENT: no acute distress, cooperative, obese Rectal exam: PRESENT: other - Outer Dressing is intact, clean, and dry. Iodoform packing has been left intact. 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
[2017-09-11 15:10] LABS: ANION GAP 12 (5-19); BLOOD UREA NITROGEN 13 mg/dL (7-20); CALCIUM 9.2 mg/dL (8.4-10.2); CARBON DIOXIDE 25 mmol/L (22-30); CHLORIDE 101 mmol/L (98-107); CREATININE RESULT 0.86 mg/dL (0.52-1.25); GLUCOSE 284 mg/dL (75-110); SODIUM 137.8 mmol/L (137-145)
[2017-09-11] MEDS: AMLODIPINE BESYLATE 10 MG TABLET PO SCH (21:20)
[2017-09-11] MEDS: ONDANSETRON 4 MG TAB.RAPDIS PO PRN (23:03)
[2017-09-12] MEDS: METRONIDAZOLE 500 MG TABLET PO SCH ×3 (06:24→21:47)
[2017-09-12 09:47] LABS: FREE T3 3.11 pg/mL (2.77-5.27)
[2017-09-12 10:00] LABS: THYROID STIMULATING HORMONE 4.11 uIU/mL (0.47-4.68)
[2017-09-12] MEDS: OXYCODONE-ACETAMINOPHEN 5-325 MG TABLET PO PRN (10:16)
[2017-09-12] MEDS: ENOXAPARIN SODIUM INJ 40 MG/0.4 ML DISP.SYRIN SUBCUT SCH (10:16)
[2017-09-12] MEDS: DOCUSATE SODIUM 100 MG CAPSULE PO SCH ×2 (10:16→17:22)
[2017-09-12] MEDS: INSULIN GLARGINE,HUM.REC.ANLOG 300 UNIT/3 ML INSULN.PEN SUBCUT SCH ×2 (10:17→21:48)
--- NOTE | 2017-09-12 12:05 | PDOC PROGRESS REPORT ---
Subjective Progress Note for:: 09/12/17 Subjective:: Patient is seen on morning rounds resting in bed comfortably postop day 2 after having a left buttocks and perianal abscess incision and drainage by Dr. Valera. She reports generalized fatigue and body aches. She states this is slightly improved from yesterday. She does admit to having been primarily sedentary yesterday and has not been out of bed or ambulatory yet. She also complains of generalized abdominal pain, most severe to the epigastric region not radiating to her back, not particularly worsened by movement or food. She denies nausea, vomiting and diarrhea. She states it has been several days since her last bm. The edema to her left upper extremity has resolved. She denies fever, chills, chest pain, and cough. She has no other questions or concerns today. Reason For Visit: RUPA RECTAL ABSCESS Physical Exam Vital Signs: Temp Pulse Resp BP Pulse Ox 97.9 F 83 16 120/72 100 09/12/17 08:37 09/12/17 08:37 09/12/17 08:37 09/12/17 08:37 09/12/17 08:37 Intake & Output 09/11/17 09/12/17 09/13/17 06:59 06:59 06:59 Intake Total 360 600 Output Total 500 2 Balance -140 598 Weight 122.4 kg General appearance: PRESENT: no acute distress, morbidly obese, well-developed Head exam: PRESENT: atraumatic, normocephalic Eye exam: PRESENT: conjunctiva pink, EOMI, PERRLA. ABSENT: scleral icterus Ear exam: PRESENT: normal external ear exam Mouth exam: PRESENT: moist, tongue midline Neck exam: ABSENT: carotid bruit, JVD, lymphadenopathy, thyromegaly Respiratory exam: PRESENT: clear to auscultation aashish, symmetrical, unlabored. ABSENT: rales, rhonchi, wheezes Cardiovascular exam: PRESENT: RRR, +S1, +S2. ABSENT: diastolic murmur, rubs, systolic murmur Pulses: PRESENT: normal dorsalis pedis pul Vascular exam: PRESENT: normal capillary refill GI/Abdominal exam: PRESENT: normal bowel sounds, soft, tenderness - epigastric region. ABSENT: distended, guarding, mass, organolmegaly, rebound Rectal exam: PRESENT: deferred Extremities exam: PRESENT: full ROM. ABSENT: calf tenderness, clubbing, pedal edema Neurological exam: PRESENT: alert, awake, oriented to person, oriented to place , oriented to time, oriented to situation, CN II-XII grossly intact. ABSENT: motor sensory deficit Psychiatric exam: PRESENT: appropriate affect, normal mood. ABSENT: homicidal ideation, suicidal ideation Skin exam: PRESENT: dry, intact, warm. ABSENT: cyanosis, rash Results Laboratory Results: 09/12/17 08:28 TSH 4.11 Free T4 1.77 Free T3 pg/mL 3.11 Assessment & Plan - Diagnosis (1) Hypertensive urgency Is this a current diagnosis for this admission?: Yes Plan: Resolved. Patient's blood pressure is controlled at present, and there is no evidence of end organ damage at this time. She is currently managed with Norvasc 10 mg nightly. At this time, patient is medically stable for discharge, however, primary plan per surgery. (2) Perirectal abscess Is this a current diagnosis for this admission?: Yes Plan: Postop day 2 after surgical I&D with debridement per Dr. Valera. Pain management/wound care per surgery. Wound culture: MRSA Pt currently on p.o. flagyl. Will add Bactrim DS. Pt remains on contact precautions. 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 The patient did have a hypoglycemic event this morning with a fasting blood sugar of 67. She was asymptomatic at the time. We will continue Lantus at 41 units twice daily with Humalog for sliding scale insulin coverage. The patient reports that she was previously managed with a combination of oral antidiabetic agents and Lantus. She states that she does not tolerate metformin secondary to GI upset and does not recall the name of her other medications. She has been unable to afford her Lantus or follow-up with primary care provider secondary to loss of insurance. The patient tells me that she will be able to pay for her insurance this week and resume regular healthcare. She does state that she does not have a primary care provider. I have significant concerns that the patient will not have adequate follow-up with this plan and so have asked the inventory planner and the patient navigator to meet with the patient. Additionally, I have asked the registered dietitian and community nutrition educator to meet with the patient. (4) Morbid obesity with body mass index of 40.0-49.9 Is this a current diagnosis for this admission?: Yes Plan: The patient's morbid obesity is certainly complicating her hypertension, diabetes, and respiratory status. Encouraged lifestyle modifications to better manage her diabetes, hypertension, and weight. Thyroid function was found to be normal. Will ask registered massage therapist and community nutrition educator to meet with the patient. (5) Obesity hypoventilation syndrome Is this a current diagnosis for this admission?: No Plan: Increased risk of respiratory depression/failure secondary to narcotic pain management. Will monitor closely and recommend minimal opiates. - Time Time Spent with patient: 15-24 minutes Anticipated discharge: Home Within: Other - Once cleared by Surgery
[2017-09-12] MEDS: KETOROLAC TROMETHAMINE INJ/PF 30 MG/1 ML SDV IV PRN ×2 (12:14→21:47)
[2017-09-12 14:43] LABS: APPEARANCE,URINE CLOUDY; BILIRUBIN,URINE NEGATIVE (NEGATIVE); GLUCOSE, URINE 50 mg/dL (NEGATIVE); KETONES,URINE NEGATIVE (NEGATIVE); LEUKOCYTE ESTERASE,URINE LARGE (NEGATIVE); NITRITE,URINE NEGATIVE (NEGATIVE); PROTEIN,URINE 30 mg/dL (NEGATIVE); URINE SPECIFIC GRAVITY 1.024; UROBILINOGEN,URINE NEGATIVE mg/dL (<2.0)
[2017-09-12 14:51] LABS: ANION GAP 13 (5-19); BLOOD UREA NITROGEN 11 mg/dL (7-20); CALCIUM 8.8 mg/dL (8.4-10.2); CARBON DIOXIDE 25 mmol/L (22-30); CHLORIDE 101 mmol/L (98-107); CREATININE RESULT 0.61 mg/dL (0.52-1.25); GLUCOSE 181 mg/dL (75-110); POTASSIUM 4.3 mmol/L (3.6-5.0); SODIUM 138.7 mmol/L (137-145)
[2017-09-12 15:08] LABS: BACTERIA,URINE 3+ /HPF; WBC,URINE 20-30 /HPF
[2017-09-12] MEDS: INSULIN REG, HUMAN 100 UNIT/ML 3 ML VIAL (PYX) SUBCUT PRN (17:21)
[2017-09-12] MEDS: SULFAMETHOXAZOLE/TRIMETHOPRIM 800-160 MG TABLET PO SCH (17:21)
[2017-09-12] MEDS: ONDANSETRON 4 MG TAB.RAPDIS PO PRN (17:32)
--- NOTE | 2017-09-12 20:03 | PDOC PROGRESS REPORT ---
Subjective Progress Note for:: 09/12/17 Subjective:: Complains of myalgias and arthralgias. Has been relatively immobile, and needs to mobilize more Reason For Visit: RUPA RECTAL ABSCESS Physical Exam Vital Signs: Temp Pulse Resp BP Pulse Ox 97.6 F 80 18 137/92 H 100 09/12/17 15:36 09/12/17 15:36 09/12/17 15:36 09/12/17 15:36 09/12/17 15:36 Intake & Output 09/11/17 09/12/17 09/13/17 06:59 06:59 06:59 Intake Total 360 840 Output Total 500 2 Balance -140 838 Weight 122.4 kg Rectal exam: PRESENT: other - Iodoform was removed today and repacked with Acticoat. Results Laboratory Results: 09/12/17 14:18 09/12/17 09/12/17 09/12/17 08:28 14:01 14:18 Sodium 138.7 Potassium 4.3 Chloride 101 Carbon Dioxide 25 Anion Gap 13 BUN 11 Creatinine 0.61 Est GFR ( Amer) > 60 Est GFR (Non-Af Amer) > 60 Glucose 181 H Calcium 8.8 TSH 4.11 Free T4 1.77 Free T3 pg/mL 3.11 Urine Color SUELLEN Urine Appearance CLOUDY Urine pH 5.0 Ur Specific [place] 1.024 Urine Protein 30 H Urine Glucose (UA) 50 H Urine Ketones NEGATIVE Urine Blood NEGATIVE Urine Nitrite NEGATIVE Ur Leukocyte Esterase LARGE H Ur Squamous Epith Cells TOO MANY TO COUNT Assessment & Plan - Diagnosis (1) Perirectal abscess Is this a current diagnosis for this admission?: Yes (2) Acute renal insufficiency Is this a current diagnosis for this admission?: No (3) Diabetes mellitus with hyperglycemia Qualifiers: Diabetes mellitus type: type 2 Diabetes mellitus correction insulin use: unspecified correction insulin use status Is this a current diagnosis for this admission?: Yes - Plan Summary Plan Summary: Patient needs referral to wound center for dressing changes q 5-7 days). Discharge planning is in order.
[2017-09-12] MEDS: AMLODIPINE BESYLATE 10 MG TABLET PO SCH (21:47)
[2017-09-13] MEDS: METRONIDAZOLE 500 MG TABLET PO SCH ×2 (05:54→13:10)
[2017-09-13] MEDS: KETOROLAC TROMETHAMINE INJ/PF 30 MG/1 ML SDV IV PRN (08:29)
[2017-09-13] MEDS ORDERED: INSULIN REG, HUMAN 100 UNIT/ML 3 ML VIAL (PYX) ONE (09:39)
[2017-09-13] MEDS: INSULIN REG, HUMAN 100 UNIT/ML 3 ML VIAL (PYX) SUBCUT PRN ×2 (10:18→12:04)
[2017-09-13] MEDS: ENOXAPARIN SODIUM INJ 40 MG/0.4 ML DISP.SYRIN SUBCUT SCH (10:22)
[2017-09-13] MEDS: DOCUSATE SODIUM 100 MG CAPSULE PO SCH (10:23)
[2017-09-13] MEDS: INSULIN GLARGINE,HUM.REC.ANLOG 300 UNIT/3 ML INSULN.PEN SUBCUT SCH (10:36)
[2017-09-13] MEDS: SULFAMETHOXAZOLE/TRIMETHOPRIM 800-160 MG TABLET PO SCH (10:37)
[2017-09-13] MEDS: OXYCODONE-ACETAMINOPHEN 5-325 MG TABLET PO PRN (11:41)
--- NOTE | 2017-09-13 13:28 | PDOC PROGRESS REPORT ---
Subjective Progress Note for:: 09/13/17 Subjective:: Feels well. No complaints Reason For Visit: RUPA RECTAL ABSCESS Physical Exam Vital Signs: Temp Pulse Resp BP Pulse Ox 97.9 F 84 18 140/98 H 100 09/13/17 12:25 09/13/17 12:25 09/13/17 12:25 09/13/17 12:25 09/13/17 12:25 Intake & Output 09/12/17 09/13/17 09/14/17 06:59 06:59 06:59 Intake Total 360 1340 Output Total 500 802 Balance -140 538 Weight 121.8 kg General appearance: PRESENT: no acute distress, cooperative Mouth exam: PRESENT: other - No swelling, mandible stable. No pain with jaw movement. No loose teeth. Respiratory exam: PRESENT: clear to auscultation aashish Cardiovascular exam: PRESENT: RRR Rectal exam: PRESENT: other - Buttocks wound wide open with no purulent drainage no induration no surrounding erythema. Wound looks clean. Dressings were removed. Perianal wound open with slight drainage with no surrounding erythema nor induration. Results Laboratory Results: 09/12/17 14:18 09/12/17 09/12/17 14:01 14:18 Sodium 138.7 Potassium 4.3 Chloride 101 Carbon Dioxide 25 Anion Gap 13 BUN 11 Creatinine 0.61 Est GFR ( Amer) > 60 Est GFR (Non-Af Amer) > 60 Glucose 181 H Calcium 8.8 Urine Color SUELLEN Urine Appearance CLOUDY Urine pH 5.0 Ur Specific [place] 1.024 Urine Protein 30 H Urine Glucose (UA) 50 H Urine Ketones NEGATIVE Urine Blood NEGATIVE Urine Nitrite NEGATIVE Ur Leukocyte Esterase LARGE H Ur Squamous Epith Cells TOO MANY TO COUNT Assessment & Plan - Diagnosis (1) Abscess of buttock Is this a current diagnosis for this admission?: Yes Plan: Status post debridement. Along with drainage of perianal abscess. Patient looks very good. The wound appears good. The wounds are open and wide enough to allow drainage without packing. Her cultures did grow out MRSA. Will discharge patient home with Loy DOCKERY for a week. Will have her wash the wounds either in a sitz bath or in the shower daily and after each bowel movement.
--- NOTE | 2017-09-13 13:53 | DISCHARGE SUMMARY E ---
Discharge Summary NAME: MEMO VEGA : 1980 AGE: 37Y ADMITTED: 09/11/2017 DISCHARGED: 09/13/2017 DISCHARGE DIAGNOSIS: Buttocks and perianal abscess. PROCEDURE PERFORMED DURING HOSPITALIZATION: Debridement of buttocks and perianal abscess, performed by Dr. Ravi Valera on 09/10/2017. HOSPITAL COURSE: The patient underwent the above mentioned procedure. She did well postoperatively. The wounds all appeared good with no surrounding induration nor erythema. The wounds were open with adequate drainage. Her cultures did grow out MRSA. The patient is now being discharged to home in good condition. She will follow up with Dr. Valera next week. She is to follow up with her primary care physician next week as well. DISCHARGE MEDICATIONS: 1. Septra DS 1 p.o. b.i.d. 2. Percocet 1 p.o. q.4 hours p.r.n. pain. I will ask Dr. Phillip for any medications for her hypertension and her diabetes at home. DICTATING PHYSICIAN: LETICIA HERNANDEZ M.D. [id number] PHY#: [id number] ID: [id number] JOB#: [id number] ACCT: [id number] cc:Rocío NOBLE M.D. >
--- NOTE | 2017-09-13 14:38 | PDOC PROGRESS REPORT ---
Subjective Progress Note for:: 09/13/17 Subjective:: Patient is seen on morning rounds resting in bed comfortably postop day 3 after having a left buttocks and perianal abscess incision and drainage by Dr. Valera. She reports that she is feeling much better today; her abdominal pain, fatigue, malaise have all resolved. She has been ambulatory without difficulty and is tolerating a regular diet without nausea or vomiting. She is happy to report that the surgeon has come by and states that she is ready to be discharged home. She denies fever, chills, chest pain, and cough. She has no other questions or concerns today. Reason For Visit: RUPA RECTAL ABSCESS Physical Exam Vital Signs: Temp Pulse Resp BP Pulse Ox 97.9 F 84 18 140/98 H 100 09/13/17 12:25 09/13/17 12:25 09/13/17 12:25 09/13/17 12:25 09/13/17 12:25 Intake & Output 09/12/17 09/13/17 09/14/17 06:59 06:59 06:59 Intake Total 360 1340 400 Output Total 500 802 Balance -140 538 400 Weight 121.8 kg General appearance: PRESENT: no acute distress, obese, well-developed, well- nourished Head exam: PRESENT: atraumatic, normocephalic Eye exam: PRESENT: conjunctiva pink, EOMI, PERRLA. ABSENT: scleral icterus Ear exam: PRESENT: normal external ear exam Mouth exam: PRESENT: moist, tongue midline Neck exam: ABSENT: carotid bruit, JVD, lymphadenopathy, thyromegaly Respiratory exam: PRESENT: clear to auscultation aashish, symmetrical, unlabored. ABSENT: rales, rhonchi, wheezes Cardiovascular exam: PRESENT: RRR, +S1, +S2. ABSENT: diastolic murmur, rubs, systolic murmur Pulses: PRESENT: normal dorsalis pedis pul Vascular exam: PRESENT: normal capillary refill GI/Abdominal exam: PRESENT: normal bowel sounds, soft. ABSENT: distended, guarding, mass, organolmegaly, rebound, tenderness Rectal exam: PRESENT: deferred Extremities exam: PRESENT: full ROM. ABSENT: calf tenderness, clubbing, pedal edema Neurological exam: PRESENT: alert, awake, oriented to person, oriented to place , oriented to time, oriented to situation, CN II-XII grossly intact. ABSENT: motor sensory deficit Psychiatric exam: PRESENT: appropriate affect, normal mood. ABSENT: homicidal ideation, suicidal ideation Skin exam: PRESENT: dry, intact, warm. ABSENT: cyanosis, rash Results Laboratory Results: 09/12/17 14:18 09/12/17 09/12/17 14:01 14:18 Sodium 138.7 Potassium 4.3 Chloride 101 Carbon Dioxide 25 Anion Gap 13 BUN 11 Creatinine 0.61 Est GFR ( Amer) > 60 Est GFR (Non-Af Amer) > 60 Glucose 181 H Calcium 8.8 Urine Color SUELLEN Urine Appearance CLOUDY Urine pH 5.0 Ur Specific [place] 1.024 Urine Protein 30 H Urine Glucose (UA) 50 H Urine Ketones NEGATIVE Urine Blood NEGATIVE Urine Nitrite NEGATIVE Ur Leukocyte Esterase LARGE H Ur Squamous Epith Cells TOO MANY TO COUNT Assessment & Plan - Diagnosis (1) Hypertensive urgency Is this a current diagnosis for this admission?: Yes Plan: Resolved. Patient's blood pressure is controlled at present, and there is no evidence of end organ damage at this time. She has been cleared for discharge and will be provided a prescription for Norvasc 10 mg p.o. nightly. She is recommended to establish with a primary care provider for continued healthcare. (2) Perirectal abscess Is this a current diagnosis for this admission?: Yes Plan: Postop day 3 after surgical I&D with debridement per Dr. Valera. Wound culture: MRSA She is being discharged by surgery with prescriptions for oxycodone and Bactrim. To follow-up with outpatient wound care clinic. 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 The patient has met with the chief cook, patient navigator, and materials planning manager. She tells me that she has been able to restart her health insurance and will be eligible for prescription coverage immediately. She will be discharged home on Lantus 40 units twice daily. To continue a consistent carb diet. A long discussion has been had with the patient with regard to the importance of establishing with a primary care provider. (4) Morbid obesity with body mass index of 40.0-49.9 Is this a current diagnosis for this admission?: Yes Plan: The patient's morbid obesity is certainly complicating her hypertension, diabetes, and respiratory status. Encouraged lifestyle modifications to better manage her diabetes, hypertension, and weight. Thyroid function was found to be normal. Has met with the registered dietitian and materials planning manager. (5) Obesity hypoventilation syndrome Is this a current diagnosis for this admission?: No Plan: Increased risk of respiratory depression/failure secondary to narcotic pain management. No adverse events noted. - Time Time Spent with patient: 15-24 minutes Medications reviewed and adjusted accordingly: Yes Anticipated discharge: Home Within: within 24 hours
[2017-09-13 15:28] LABS: ANION GAP 8 (5-19); BLOOD UREA NITROGEN 10 mg/dL (7-20); CARBON DIOXIDE 27 mmol/L (22-30); CHLORIDE 101 mmol/L (98-107); CREATININE RESULT 0.64 mg/dL (0.52-1.25); GLUCOSE 155 mg/dL (75-110); POTASSIUM 4.7 mmol/L (3.6-5.0); SODIUM 136.1 mmol/L (137-145)
[2017-09-13 15:33] VITALS: BP 148/95
--- NOTE | 2017-09-15 13:47 | XCELERA REPORT ---
[address] [address] Transthoracic Echocardiogram Report Name: MEMO VEGA Age: 37 yrs Gender: Female : 1980 Patient Status: Inpatient Patient Location: [address] [place], [place] [address] Study Date: 09/10/2017 09:31 AM Height: 66 in Weight: 264 lb BSA: 2.3 m2 Procedure: A two-dimensional transthoracic echocardiogram with color flow and Doppler was performed. Study Quality: Fair. Reason For Study: Murmur / h/o heart/pre-op clearance ok to do in am per Syl History: Murmur / h/o heart/pre-op clearance ok to do in am per Syl. Ordering Physician: GIANNA VILLASEÑOR Performed By: Cheri Samuel Interpretation Summary The left ventricle is normal in size. There is mild concentric left ventricular hypertrophy. LV EF is 60% Left ventricular systolic function is normal. Doppler measurements suggest normal left ventricular diastolic function The left ventricular wall motion is normal. There is no thrombus. The right ventricle is not well visualized secondary to technical limitations The left atrial size is normal. There is no evidence of mitral valve prolapse. There is no vegetation seen on the mitral valve. There is no mitral valve stenosis. There is a mild amount of mitral regurgitation There is no aortic valvular vegetation. There is no aortic valve stenosis There is no LVOT obstruction. No aortic regurgitation is present. There is no tricuspid stenosis. There is a trace amount of tricuspid regurgitation Right ventricular systolic pressure is normal. RVSP is 11 to 16 , with RA mean of 5 to 10. There is no pericardial effusion. MMode/2D Measurements & Calculations RVDd: 3.0 cm LVIDd: 5.4 cm FS: 28.9 % Ao root diam: 3.1 cm IVSd: 1.4 cm LVIDs: 3.8 cm EDV(Teich): 140.3 ml LVPWd: 1.3 cm ESV(Teich): 63.0 ml Ao root area: 7.4 cm2 EF(Teich): 55.1 % Doppler Measurements & Calculations MV E max nga: MV dec slope: Ao V2 max: LV V1 max P.3 cm/sec 124.9 cm/sec 2.4 mmHg MV A max nga: 427.3 cm/sec2 Ao max PG: LV V1 max: 71.1 cm/sec MV dec time: 6.2 mmHg 78.1 cm/sec MV E/A: 0.96 0.16 sec PA V2 max: TR max nga: 90.2 cm/sec 123.1 cm/sec PA max PG: TR max P.1 mmHg 3.3 mmHg Left Ventricle The left ventricle is normal in size. There is mild concentric left ventricular hypertrophy. LV EF is 60%. Left ventricular systolic function is normal. Doppler measurements suggest normal left ventricular diastolic function. The left ventricular wall motion is normal. There is no thrombus. Right Ventricle The right ventricle is not well visualized secondary to technical limitations. Atria Right atrium not well visualized secondary to technical limitations. The left atrial size is normal. Mitral Valve There is no evidence of mitral valve prolapse. There is no vegetation seen on the mitral valve. There is no mitral valve stenosis. There is a mild amount of mitral regurgitation. Aortic Valve There is no aortic valvular vegetation. There is no aortic valve stenosis. There is no LVOT obstruction. No aortic regurgitation is present. Tricuspid Valve There is no tricuspid stenosis. There is a trace amount of tricuspid regurgitation. Right ventricular systolic pressure is normal. RVSP is 11 to 16 , with RA mean of 5 to 10. Pulmonic Valve There is no pulmonic valvular stenosis. There is no pulmonic valvular regurgitation. Great Vessels The aortic root is normal size. Effusions There is no pericardial effusion. : GIANNA VILLASEÑOR > Lainey Otero
== END 2017-09-13 17:04 | disposition home or self-care (01) | DRG 571 ==
LOC: ER 10:57 → EH 12:28 → 2S 14:12 → OBSVTOIN 09-11 15:19
PROVIDERS: ADMIT Family Medicine; ATTEND Family Medicine
PROC: 0D9Q0ZZ Drainage of Anus, Open Approach (ICD-10-PCS; 2017-09-10)
PROC: 0DJD8ZZ Inspection of Lower Intestinal Tract, Via Natural or Artificial Opening Endoscopic (ICD-10-PCS; 2017-09-10)
PROC: 0JB90ZZ Excision of Buttock Subcutaneous Tissue and Fascia, Open Approach (ICD-10-PCS; principal; 2017-09-10 11:30)
DX: L02.31 Cutaneous abscess of buttock (principal); K61.0 Anal abscess; Z68.41 Body mass index [BMI] 40.0-44.9, adult; E66.2 Morbid (severe) obesity with alveolar hypoventilation; I16.0 Hypertensive urgency; E11.65 Type 2 diabetes mellitus with hyperglycemia; B95.62 Methicillin resistant Staphylococcus aureus infection as the cause of diseases classified elsewhere; I12.9 Hypertensive chronic kidney disease with stage 1 through stage 4 chronic kidney disease, or unspecified chronic kidney disease; E11.22 Type 2 diabetes mellitus with diabetic chronic kidney disease; N18.9 Chronic kidney disease, unspecified; K21.9 Gastro-esophageal reflux disease without esophagitis; T46.4X6A Underdosing of angiotensin-converting-enzyme inhibitors, initial encounter; Z59.7 Insufficient social insurance and welfare support; Z82.49 Family history of ischemic heart disease and other diseases of the circulatory system; Z87.891 Personal history of nicotine dependence; Z79.4 Long term (current) use of insulin; Z91.14 Patient's other noncompliance with medication regimen; Z88.0 Allergy status to penicillin; Z91.138 Patient's unintentional underdosing of medication regimen for other reason; Z82.3 Family history of stroke
CPT/HCPCS: 36415; 80048; 80053; 81001; 82962; 83036; 84439; 84443; 84481; 84703; 85025; 87040; 87070; 87075; 87077; 87186; 87205; 902; 93306; 96361; 96374; 99284; A6266; J0131; J0330; J0360; J1100; J1650; J1815; J1885; J1956; J2250; J2270; J2405; J2704; J3010; J3490; J7030; S0119

== ENCOUNTER 2017-11-02 17:05 | Emergency (ER) | payer BC ==
--- NOTE | 2017-11-02 17:34 | ER Document Report ---
ED Medical Screen (RME) - General Chief Complaint: Abscess Stated Complaint: POSSIBLE ABSCESS/PAIN Time Seen by Provider: 11/02/17 17:30 Notes: 37-year-old female patient comes emergency room with a 3 day history of 2 abscesses to her left buttock region. She did go to the operating room on 09/10/2017 for I&D of an MRSA perianal abscess. I have greeted and performed a rapid initial assessment of this patient. A comprehensive ED assessment and evaluation of the patient, analysis of test results and completion of the medical decision making process will be conducted by additional ED providers. TRAVEL OUTSIDE OF THE [place] IN LAST 30 DAYS: No - Related Data Allergies/Adverse Reactions: Penicillins Allergy (Verified 11/02/17 17:07) onion Allergy (Uncoded 11/02/17 17:07) Past Medical History - Past Medical History Cardiac Medical History: Reports: Hx Coronary Artery Disease, Hx Hypercholesterolemia, Hx Hypertension - out of Lisinopril for over a week, takes 20mg daily Denies: Hx Congestive Heart Failure, Hx Heart Attack Pulmonary Medical History: Denies: Hx Asthma, Hx Bronchitis, Hx COPD, Hx Pneumonia, Hx Tuberculosis Neurological Medical History: Denies: Hx Seizures Endocrine Medical History: Reports: Hx Diabetes Mellitus Type 2 - on Lantus, she does not have a PCM Renal/ Medical History: Reports: Hx Kidney Stones. Denies: Hx End Stage Renal Disease, Hx Peritoneal Dialysis GI Medical History: Denies: Hx Cirrhosis, Hx Gastroesophageal Reflux Disease, Hx Ulcer Musculoskeltal Medical History: Denies Hx Arthritis, Denies Hx Multiple Sclerosis Psychiatric Medical History: Denies: Hx Bipolar Disorder, Hx Depression, Hx Schizophrenia Past Surgical History: Reports: Hx Cardiac Catheterization, Hx Genitourinary Surgery - vaginal surgery age 20, Hx Gynecologic Surgery - Immunizations Hx Diphtheria, Pertussis, Tetanus Vaccination: No History of Influenza Vaccine for 07/2017 - 12/2017 Season: Refused
[2017-11-02] MEDS ORDERED: ACETAMINOPHEN 325 MG TABLET PO ONE (19:15)
[2017-11-02] MEDS ORDERED: SULFAMETHOXAZOLE/TRIMETHOPRIM 800-160 MG TABLET PO ONE (19:15)
--- NOTE | 2017-11-02 19:16 | ER Document Report ---
ED General - General Chief Complaint: Abscess Stated Complaint: POSSIBLE ABSCESS/PAIN Time Seen by Provider: 11/02/17 17:30 Notes: Patient is a 37-year-old female with a history of morbid obesity, insulin- dependent diabetes with poor control, who presents with concerns of 2 small abscesses on her right buttock. Patient states that she noted these areas over the past 3 days. Both areas are a severe, constant throbbing pain worsened when she sits on the area. Nothing improves the pain. Pain has worsened since onset. She states that it is not as intense as when she had to have a large surgical intervention approximately 6 weeks ago but that she did not want them to become that severe which is what prompted her to come to the emergency department. She denies any fever or constitutional symptoms. She has not seen her primary doctor regarding today's concerns. TRAVEL OUTSIDE OF THE [place] IN LAST 30 DAYS: No - Related Data Allergies/Adverse Reactions: Penicillins Allergy (Verified 11/02/17 17:07) onion Allergy (Uncoded 11/02/17 17:07) Past Medical History - General Information source: Patient - Social History Smoking Status: Former Smoker Chew tobacco use (# tins/day): No Frequency of alcohol use: None Drug Abuse: None Family History: CAD, CVA Patient has suicidal ideation: No Patient has homicidal ideation: No - Past Medical History Cardiac Medical History: Reports: Hx Coronary Artery Disease, Hx Hypercholesterolemia, Hx Hypertension - out of Lisinopril for over a week, takes 20mg daily Denies: Hx Congestive Heart Failure, Hx Heart Attack Pulmonary Medical History: Denies: Hx Asthma, Hx Bronchitis, Hx COPD, Hx Pneumonia, Hx Tuberculosis Neurological Medical History: Denies: Hx Seizures Endocrine Medical History: Reports: Hx Diabetes Mellitus Type 2 - on Lantus, she does not have a PCM Renal/ Medical History: Reports: Hx Kidney Stones. Denies: Hx End Stage Renal Disease, Hx Peritoneal Dialysis GI Medical History: Denies: Hx Cirrhosis, Hx Gastroesophageal Reflux Disease, Hx Ulcer Musculoskeltal Medical History: Denies Hx Arthritis, Denies Hx Multiple Sclerosis Psychiatric Medical History: Denies: Hx Bipolar Disorder, Hx Depression, Hx Schizophrenia Past Surgical History: Reports: Hx Cardiac Catheterization, Hx Genitourinary Surgery - vaginal surgery age 20, Hx Gynecologic Surgery - Immunizations Hx Diphtheria, Pertussis, Tetanus Vaccination: No Hx Pneumococcal Vaccination: 09/10/13 Review of Systems - Review of Systems Notes: Constitutional: Negative for fever. HENT: Negative for sore throat. Eyes: Negative for visual changes. Cardiovascular: Negative for chest pain. Respiratory: Negative for shortness of breath. Gastrointestinal: Negative for abdominal pain, vomiting or diarrhea. Genitourinary: Negative for dysuria. Musculoskeletal: Negative for back pain. Skin: Positive for multiple abscesses Neurological: Negative for headaches, weakness or numbness. 10 point ROS negative except as marked above and in HPI. Physical Exam - Vital signs Interpretation: Normal Notes: PHYSICAL EXAMINATION: GENERAL: Well-appearing, well-nourished and in no acute distress. HEAD: Atraumatic, normocephalic. EYES: sclera anicteric, conjunctiva are normal. ENT: Moist mucous membranes. NECK: Normal range of motion LUNGS: Normal work of breathing HEART: 2+ radial pulses bilaterally EXTREMITIES: no pitting or edema. No cyanosis. NEUROLOGICAL: No focal neurological deficits. Moves all extremities spontaneously and on command. PSYCH: Normal mood, normal affect. SKIN: Warm, Dry, normal turgor, on the lateral mid aspect of the right buttock there is a small 0.5 x 0.5 cm abscess that is painful to palpation. There is also a very superficial pustule between 2 skin folds where the buttock meets the proximal leg on the right. Course - Re-evaluation Re-evalutation: 11/02/17 19:13 Patient presents with 2 small abscesses on her right buttock quite distal from the area of the original abscess. The first was on a lateral fold of the left buttock almost towards the thigh. This was incised and drained with expression of 1.5 cc of purulent drainage. There was a very small superficial abscess in a skin fold on the posterior proximal right lower extremity which was also incised and drained with drainage of approximately 1 cc of purulent fluid. Patient will be started on trimethoprim sulfamethoxazole. I have instructed her to begin bleach baths after her wounds close to try to prevent recurrence. We also had an extensive conversation regarding diabetes management and weight loss to prohibit recurrence of these issues. At this time will discharge with return precautions and follow-up recommendations. Verbal discharge instructions given a the bedside and opportunity for questions given. Medication warnings reviewed. Patient is in agreement with this plan and has verbalized understanding of return precautions and the need for primary care follow-up in the next 24-72 hours. Procedures - Incision and Drainage Right Buttock Type: Simple Anesthetic type: 1% Lidocaine mL's of anesthetic: 3 Blade size: 11 I&D procedure: Betadine prep applied Incision Method: Incision made by scalpel Amount/type of drainage: 2.5 cc purulent drainage Discharge - Discharge Clinical Impression: Abscess of buttock, right, Morbid obesity with body mass index of 40.0-49.9 Condition: Stable Disposition: HOME, SELF-CARE Additional Instructions: You were seen for an abscess that required drainage. Please clean this area with soap and water twice daily and apply a topical antibiotic. Dress the area after each cleaning. Please return if you develop fever, vomiting, the pain at the site worsens, you notice spreading redness from the area, or you have any other symptoms that are concerning to you. Prescriptions: Sulfamethoxazole/Trimethoprim [Bactrim Ds Tablet] 2 tab PO BID #28 tablet Referrals: LUCIO ENRIQUE PA-C [Primary Care Provider] - Follow up as needed
== END 2017-11-02 19:49 | disposition home or self-care (01) ==
LOC: ER 17:05
PROC: 0H98XZZ Drainage of Buttock Skin, External Approach (ICD-10-PCS; principal; 2017-11-02)
DX: L02.31 Cutaneous abscess of buttock (principal); E66.01 Morbid (severe) obesity due to excess calories; Z68.41 Body mass index [BMI] 40.0-44.9, adult; E11.9 Type 2 diabetes mellitus without complications; Z79.4 Long term (current) use of insulin; I25.10 Atherosclerotic heart disease of native coronary artery without angina pectoris; E78.00 Pure hypercholesterolemia, unspecified; I10 Essential (primary) hypertension; Z87.442 Personal history of urinary calculi
CPT/HCPCS: 99283

== ENCOUNTER 2018-06-07 15:51 | Emergency (ER) | payer BC ==
--- NOTE | 2018-06-07 16:20 | ER Document Report ---
ED Medical Screen (RME) - General Chief Complaint: Abscess Stated Complaint: SKIN ISSUE Time Seen by Provider: 06/07/18 16:20 Notes: 37 years old female presents today with abscesses in the vulvovaginal region. Previous history of skin abscesses. I could not examine her as she needs to be undressed. TRAVEL OUTSIDE OF THE [place] IN LAST 30 DAYS: No - Related Data Allergies/Adverse Reactions: Penicillins Allergy (Verified 11/02/17 17:07) onion Allergy (Uncoded 11/02/17 17:07) Past Medical History - Social History Chew tobacco use (# tins/day): No Frequency of alcohol use: None Drug Abuse: None - Past Medical History Cardiac Medical History: Reports: Hx Coronary Artery Disease, Hx Hypercholesterolemia, Hx Hypertension - out of Lisinopril for over a week, takes 20mg daily Denies: Hx Congestive Heart Failure, Hx Heart Attack Pulmonary Medical History: Denies: Hx Asthma, Hx Bronchitis, Hx COPD, Hx Pneumonia, Hx Tuberculosis Neurological Medical History: Denies: Hx Seizures Endocrine Medical History: Reports: Hx Diabetes Mellitus Type 2 - on Lantus, she does not have a PCM Renal/ Medical History: Reports: Hx Kidney Stones. Denies: Hx End Stage Renal Disease, Hx Peritoneal Dialysis GI Medical History: Denies: Hx Cirrhosis, Hx Gastroesophageal Reflux Disease, Hx Ulcer Musculoskeltal Medical History: Denies Hx Arthritis, Denies Hx Multiple Sclerosis Psychiatric Medical History: Denies: Hx Bipolar Disorder, Hx Depression, Hx Schizophrenia Past Surgical History: Reports: Hx Cardiac Catheterization, Hx Genitourinary Surgery - vaginal surgery age 20, Hx Gynecologic Surgery - Immunizations Hx Diphtheria, Pertussis, Tetanus Vaccination: No History of Influenza Vaccine for 07/2017 - 12/2017 Season: Refused Physical Exam - Vital signs Vitals: Temp Pulse Resp BP Pulse Ox 97.9 F 107 H 16 141/96 H 98 06/07/18 16:02 06/07/18 16:02 06/07/18 16:02 06/07/18 16:02 06/07/18 16:02 Course - Vital Signs Vital signs: Temp Pulse Resp BP Pulse Ox 97.9 F 107 H 16 141/96 H 98 06/07/18 16:02 06/07/18 16:02 06/07/18 16:02 06/07/18 16:06/07/18 16:02 Doctor's Discharge - Discharge Referrals: LUCIO ENRIQUE PAMaribellC [Primary Care Provider] - Follow up as needed
--- NOTE | 2018-06-07 16:24 | ER Document Report ---
HPI - HPI Patient complains to provider of: Recurrent abscess Onset: This morning Pain Level: 4 Context: 37-year-old obese diabetic has recurrent small abscess to on her right superior thigh and one on her right mid labia which is actually getting smaller since this morning. No fever or chills. History of hospitalization for MRSA when her diabetes was not in control. Recently her senior merchandiser has switched her to a type of insulin that the insurance company will not fill so she is the only thing she has is NovoLog which is not helping. Her glucoses were down into the 100s using the Lantus. 30units/day. Her senior merchandiser office is not called her back they did not realize that she is not on the new insulin and now her glucoses are in the 400s. - REPRODUCTIVE Reproductive: DENIES: : - DERM Skin Color: Normal Past Medical History - General Information source: Patient - Social History Smoking Status: Never Smoker Chew tobacco use (# tins/day): No Frequency of alcohol use: None Drug Abuse: None Lives with: Family Family History: CAD, CVA Patient has suicidal ideation: No Patient has homicidal ideation: No - Past Medical History Cardiac Medical History: Reports: Hx Coronary Artery Disease, Hx Hypercholesterolemia, Hx Hypertension - out of Lisinopril for over a week, takes 20mg daily Endocrine Medical History: Reports: Hx Diabetes Mellitus Type 2 - on Lantus, she does not have a PCM Renal/ Medical History: Reports: Hx Kidney Stones Past Surgical History: Reports: Hx Cardiac Catheterization, Hx Genitourinary Surgery - vaginal surgery age 20, Hx Gynecologic Surgery - Immunizations Hx Diphtheria, Pertussis, Tetanus Vaccination: No Hx Pneumococcal Vaccination: 09/10/13 Vertical Provider Document - CONSTITUTIONAL Agree With Documented VS: Yes Exam Limitations: No Limitations - INFECTION CONTROL TRAVEL OUTSIDE OF THE [place] IN LAST 30 DAYS: No - NECK Neck: Supple - NEURO Level of Consciousness: Awake - DERM Integumentary: Rash - #2 4mm follicular abscess right proximal anterior thigh, 3mm indurated lesions right mid labia majora in hair Course - Re-evaluation Re-evalutation: 06/07/18 16:52 Patient wants to restart on her Lantus until she can get this new insulin and she understands that once the new insulin has been started she will not need to take the Lantus she will try again speaking with her senior merchandiser next week, she left several messages again today. Since the lesions are small we do use Bactroban and Septra. She can follow-up here on the weekend if they get larger or any concerns. Accu-Chek is 347. - Vital Signs Vital signs: Temp Pulse Resp BP Pulse Ox 97.9 F 107 H 16 141/96 H 98 06/07/18 16:02 06/07/18 16:02 06/07/18 16:02 06/07/18 16:02 06/07/18 16:02 Discharge - Discharge Clinical Impression: small follicular thigh abscess x 2, Left labia small abscess Uncontrolled diabetes mellitus with hyperglycemia Qualifiers: Diabetes mellitus type: type 2 Qualified Code(s): E11.65 - Type 2 diabetes mellitus with hyperglycemia Condition: Good Disposition: HOME, SELF-CARE Instructions: Abscess ([facility]), Bactroban Ointment ([facility]), Insulin ([facility]), Trimethoprim-Sulfa ([facility]), Warm Packs ([facility]) Additional Instructions: See your senior merchandiser or speak with them at the office as soon as possible next week Warm compress to the lesions twice a day this weekend Return to the emergency room for any increased size pain fever in these small abscesses Bactroban ointment 3 times a day small amount to each of the lesions. Septra twice a day for a week Restart her Lantus 30 units that she were using and controlled her glucose until you can get the other insulin secured from the insurance company payment Prescriptions: Insulin Glargine,Hum.rec.anlog [Lantus Insulin Inj 300 Unit/3 ml Pen] 30 unit SUBCUT QHS #10 ml Sulfamethoxazole/Trimethoprim [Sulfamethoxazole-Tmp Ds Tablet] 1 each PO BID # 14 tablet Referrals: LUCIO ENRIQUE PA-C [Primary Care Provider] - 06/10/18
[2018-06-07] MEDS ORDERED: SULFAMETHOXAZOLE/TRIMETHOPRIM 800-160 MG TABLET PO ONE (16:46)
[2018-06-07] MEDS ORDERED: MUPIROCIN 2% OINTMENT 22 GM TP ONE (16:46)
[2018-06-07] MEDS ORDERED: ACETAMINOPHEN 325 MG TABLET PO ONE (17:09)
[2018-06-07 17:28] VITALS: BP 148/105
== END 2018-06-07 17:29 | disposition home or self-care (01) ==
LOC: ER 15:51
DX: L02.415 Cutaneous abscess of right lower limb (principal); N76.4 Abscess of vulva; I25.10 Atherosclerotic heart disease of native coronary artery without angina pectoris; I10 Essential (primary) hypertension; E11.9 Type 2 diabetes mellitus without complications
CPT/HCPCS: 99283; 82962; J3490

== ENCOUNTER 2018-06-10 14:26 | Emergency (ER) | payer BC ==
[2018-06-10] MEDS ORDERED: OXYCODONE-ACETAMINOPHEN 5-325 MG TABLET PO ONE (14:55)
--- NOTE | 2018-06-10 15:06 | ER Document Report ---
HPI - HPI Patient complains to provider of: abscess Onset: Other - 5 days Onset/Duration: Worse Quality of pain: Achy Pain Level: 5 Context: Patient was here 4 days ago for an abscess to the upper leg. Patient states she has been taking the medication as prescribed although her leg has become more tender and erythematous. Patient denies any fever. Associated Symptoms: Other - Leg infection. denies: Fever Exacerbated by: Movement Relieved by: Denies Similar symptoms previously: Yes Recently seen / treated by doctor: Yes - ROS ROS below otherwise negative: Yes Systems Reviewed and Negative: Yes All other systems reviewed and negative - CONSTITUTIONAL Constitutional: DENIES: Fever - GASTROINTESTINAL Gastrointestinal: DENIES: Nausea, Patient vomiting - REPRODUCTIVE Reproductive: DENIES: : - MUSCULOSKELETAL Musculoskeletal: REPORTS: Extremity pain, Swelling - DERM Skin Color: Jaundiced Skin Problems: None Past Medical History - General Information source: Patient - Social History Smoking Status: Former Smoker Chew tobacco use (# tins/day): No Frequency of alcohol use: None Drug Abuse: None Occupation: [employer] Family History: CAD, CVA Patient has suicidal ideation: No Patient has homicidal ideation: No - Past Medical History Cardiac Medical History: Reports: Hx Coronary Artery Disease, Hx Hypercholesterolemia, Hx Hypertension Denies: Hx Congestive Heart Failure, Hx Heart Attack Pulmonary Medical History: Denies: Hx Asthma, Hx Bronchitis, Hx COPD, Hx Pneumonia, Hx Tuberculosis Neurological Medical History: Denies: Hx Seizures Endocrine Medical History: Reports: Hx Diabetes Mellitus Type 2 - on Lantus, she does not have a PCM Renal/ Medical History: Reports: Hx Kidney Stones. Denies: Hx End Stage Renal Disease, Hx Peritoneal Dialysis GI Medical History: Denies: Hx Cirrhosis, Hx Gastroesophageal Reflux Disease, Hx Ulcer Musculoskeletal Medical History: Denies Hx Arthritis, Denies Hx Multiple Sclerosis Psychiatric Medical History: Denies: Hx Bipolar Disorder, Hx Depression, Hx Schizophrenia Past Surgical History: Reports: Hx Cardiac Catheterization, Hx Genitourinary Surgery - vaginal surgery age 20, Hx Gynecologic Surgery, Hx Kidney (Renal Surgery) - kidney stone removal - Immunizations Hx Diphtheria, Pertussis, Tetanus Vaccination: No Hx Pneumococcal Vaccination: 09/10/13 Vertical Provider Document - CONSTITUTIONAL Agree With Documented VS: Yes Exam Limitations: No Limitations General Appearance: WD/WN, No Apparent Distress - INFECTION CONTROL TRAVEL OUTSIDE OF THE [place] IN LAST 30 DAYS: No - HEENT HEENT: Atraumatic, Normocephalic - NECK Neck: Normal Inspection, Supple - RESPIRATORY Respiratory: Breath Sounds Normal, No Respiratory Distress - CARDIOVASCULAR Cardiovascular: Regular Rate, Regular Rhythm - BACK Back: Normal Inspection - MUSCULOSKELETAL/EXTREMETIES Musculoskeletal/Extremeties: JAYCOB HERNANDEZ - NEURO Level of Consciousness: Awake, Alert, Appropriate Motor/Sensory: No Motor Deficit - DERM Integumentary: Warm, Dry, Abscess - Tender indurated area to right medial thigh with large area of surrounding erythema. Course - Re-evaluation Re-evalutation: 06/10/18 15:36 Patient had been taking doxycycline although had area of expanding erythema to right thigh. Consulted with Dr. Martinez regarding patient management. We will switch antibiotics to clindamycin and perform incision and drainage procedure. Procedures - Incision and Drainage Right Leg Type: Simple Anesthetic type: 1% Lidocaine Blade size: 11 I&D procedure: Betadine prep applied Incision Method: Incision made by scalpel Amount/type of drainage: small amount of purulent drainage Discharge - Discharge Clinical Impression: Leg abscess, Encounter for incision and drainage procedure Cellulitis Qualifiers: Site of cellulitis: extremity Site of cellulitis of extremity: lower extremity Laterality: right Qualified Code(s): L03.115 - Cellulitis of right lower limb Condition: Stable Disposition: HOME, SELF-CARE Instructions: Abscess ([facility]), Cellulitis ([facility]), Clindamycin ([facility]), Oral Narcotic Medication ([facility]), Post Incision and Drainage Additional Instructions: Return immediately for any new or worsening symptoms Followup with your primary care provider, call tomorrow to make a followup appointment You may stop taking the doxycycline Prescriptions: Clindamycin HCl [Cleocin Hcl] 300 mg PO QID #28 capsule Oxycodone HCl/Acetaminophen [Percocet 5-325 mg Tablet] 1 tab PO ASDIR PRN #10 tablet PRN Reason: Forms: Return to Work Referrals: LUCIO ENRIQUE PAMaribellC [Primary Care Provider] - Follow up as needed
[2018-06-10] MEDS ORDERED: CLINDAMYCIN HCL 150 MG CAPSULE PO ONE (15:36)
[2018-06-10 16:12] VITALS: BP 143/98
== END 2018-06-10 16:12 | disposition home or self-care (01) ==
LOC: ER 14:26
PROC: 0H9HXZZ Drainage of Right Upper Leg Skin, External Approach (ICD-10-PCS; principal; 2018-06-10)
DX: L02.415 Cutaneous abscess of right lower limb (principal); L03.115 Cellulitis of right lower limb; Z87.891 Personal history of nicotine dependence; I25.10 Atherosclerotic heart disease of native coronary artery without angina pectoris; I10 Essential (primary) hypertension; E11.9 Type 2 diabetes mellitus without complications
CPT/HCPCS: 99283

== ENCOUNTER 2018-08-16 03:31 | Emergency (ER) | payer BC ==
[2018-08-16] MEDS ORDERED: KETOROLAC TROMETHAMINE INJ/PF 30 MG/1 ML SDV IV ONE (04:08)
[2018-08-16] MEDS ORDERED: ONDANSETRON HCL INJ/PF 4 MG/2 ML SDV IV ONE (04:08)
--- NOTE | 2018-08-16 04:17 | ER Document Report ---
ED General - General Chief Complaint: Abdominal Pain Stated Complaint: ABDOMINAL PAIN Time Seen by Provider: 08/16/18 03:53 Mode of Arrival: Ambulatory Information source: Patient Notes: Patient is a 38-year-old female who presents to the emergency department with abdominal pain. Her abdominal pain started 2 days ago. It is a pain that comes and goes in her upper abdomen. she stated she was eating [employer] and felt nauseous, then yesterday she vomited once. She also has an associated headache , but states it is not that bad. In addition, she states she has had chest pain since June. She denies cough, congestion, and difficulty breathing. She has history of diabetes, hypertension, hyperlipidemia. TRAVEL OUTSIDE OF THE [place] IN LAST 30 DAYS: No - Related Data Allergies/Adverse Reactions: Penicillins Allergy (Verified 11/02/17 17:07) onion Allergy (Uncoded 11/02/17 17:07) Past Medical History - General Information source: Patient - Social History Smoking Status: Never Smoker Frequency of alcohol use: None Drug Abuse: None Family History: CAD, CVA - Past Medical History Cardiac Medical History: Reports: Hx Coronary Artery Disease, Hx Hypercholesterolemia, Hx Hypertension Denies: Hx Congestive Heart Failure, Hx Heart Attack Pulmonary Medical History: Denies: Hx Asthma, Hx Bronchitis, Hx COPD, Hx Pneumonia, Hx Tuberculosis Neurological Medical History: Denies: Hx Seizures Endocrine Medical History: Reports: Hx Diabetes Mellitus Type 2 - on Lantus, she does not have a PCM Renal/ Medical History: Reports: Hx Kidney Stones. Denies: Hx End Stage Renal Disease, Hx Peritoneal Dialysis GI Medical History: Denies: Hx Cirrhosis, Hx Gastroesophageal Reflux Disease, Hx Ulcer Musculoskeletal Medical History: Denies Hx Arthritis, Denies Hx Multiple Sclerosis Psychiatric Medical History: Denies: Hx Bipolar Disorder, Hx Depression, Hx Schizophrenia Past Surgical History: Reports: Hx Cardiac Catheterization, Hx Genitourinary Surgery - vaginal surgery age 20, Hx Gynecologic Surgery, Hx Kidney (Renal Surgery) - kidney stone removal - Immunizations Hx Diphtheria, Pertussis, Tetanus Vaccination: No Hx Pneumococcal Vaccination: 09/10/13 Review of Systems - Review of Systems Notes: REVIEW OF SYSTEMS: CONSTITUTIONAL : See HPI. denies recent illness. Denies recent unintentional weight loss. Denies fever, chills, or sweats. EENT: Denies eye, ear, throat, or mouth pain, discharge, or symptoms. Denies nasal or sinus congestion. CARDIOVASCULAR: See HPI. RESPIRATORY: Denies shortness of breath, cough, congestion, difficulty breathing , or wheezing. GASTROINTESTINAL: See HPI. GENITOURINARY: Denies difficulty urinating, burning, blood in urine, urgency or frequency. MUSCULOSKELETAL: Denies neck and back pain. Denies joint pain or swelling. SKIN: Denies rash, itchiness, or lesions HEMATOLOGIC : Denies easy bruising or bleeding. LYMPHATIC: Denies swollen, painful, enlarged glands. NEUROLOGICAL: Denies no numbness or tingling denies weakness. Denies headache. Denies altered mental status. Denies alteration in speech. PSYCHIATRIC: Denies stress, anxiety, alteration in sleep patterns, or depression. All other systems reviewed and negative. Physical Exam - Vital signs Vitals: Temp Pulse Resp BP Pulse Ox 98.1 F 105 H 20 153/110 H 98 08/16/18 03:47 08/16/18 03:47 08/16/18 03:47 08/16/18 03:47 08/16/18 03:47 - Notes Notes: PHYSICAL EXAMINATION: GENERAL: Appears well, morbidly obese, no acute distress. HEAD: Normocephalic, atraumatic. EYES: PERRL, conjunctiva normal, all extraocular movements intact, sclera nonicteric ENT: Moist mucous membranes. NECK: Supple, no noticeable swelling, redness, rash. Normal range of motion. LUNGS: Equal breath sounds bilaterally and clear to auscultation. No wheezes rales or rhonchi. CARDIOVASCULAR: S1-S2, regular rate, regular rhythm. Radial pulses 2+, normal. ABDOMEN: Tender upper abdomen. Normoactive bowel sounds. Soft, no guarding, no rebound tenderness, and no masses palpated. EXTREMITIES: Normal strength and range of motion, no pitting or edema. No cyanosis. NEUROLOGICAL: Moves all extremities upon command. Strength 5/5 in all extremities. PSYCH: Normal mood, normal affect. SKIN: Warm, dry. No rash, lesions, ulcerations noted. Normal skin turgor. Course - Re-evaluation Re-evalutation: 08/16/18 03:55 Patient is a 38-year-old female who presents emergency department with abdominal pain. Her pain is primarily in her upper abdomen. Laboratory studies , right upper quadrant ultrasound, chest x-ray will be ordered at this time. 08/16/18 05:03 Chest x-ray shows cardiac enlargement. Laboratory studies are unremarkable. 08/16/18 05:37 Hydronephrosis noted on right upper quadrant abdominal ultrasound. Awaiting on urine sample from patient. 08/16/18 06:08 Patient was able to provide a urine sample, unfortunately there was only enough urine for an hCG. Requested the patient provide another urine sample. 08/16/18 07:05 The plan is to have her provide a urine sample. If her urine shows a urinary tract infection, there is a possibility that she may have an infected kidney stone. In that case, she will be sent for CT of the abdomen to confirm a possible infected kidney stone. Report and bedside handoff was given to Marisel Marie NP and patient was updated on plan. - Vital Signs Vital signs: Temp Pulse Resp BP Pulse Ox 98.1 F 105 H 18 148/104 H 98 08/16/18 03:47 08/16/18 03:47 08/16/18 07:01 08/16/18 07:01 08/16/18 07:01 - Laboratory Result Diagrams: 08/16/18 04:11 08/16/18 04:11 Laboratory results interpreted by me: 08/16/18 04:11 Carbon Dioxide 32 H Glucose 178 H Albumin 3.4 L - EKG Interpretation by Me Additional EKG results interpreted by me: 08/16/18 03:42 Sinus tachycardia; rate 107; DE 106; QRS 84; QT 360; QTC 481. No ST elevations or depressions. Discharge - Discharge Clinical Impression: Abdominal pain Qualifiers: Abdominal location: upper abdomen, unspecified Qualified Code(s): R10.10 - Upper abdominal pain, unspecified Condition: Stable Referrals: LUCIO ENRIQUE PA-C [Primary Care Provider] - Follow up as needed
[2018-08-16 04:29] LABS: ABSOLUTE BASOPHILS # (AUTO) 0.1 10^3/uL (0.0-0.2); ABSOLUTE EOSINOPHILS # (AUTO) 0.1 10^3/uL (0.0-0.6); ABSOLUTE LYMPHOCYTES (AUTO) 3.2 10^3/uL (0.5-4.7); ABSOLUTE MONOCYTES (AUTO) 0.8 10^3/uL (0.1-1.4); ABSOLUTE NEUT (AUTO) 5.8 10^3/uL (1.7-8.2); BASOPHILS % (AUTO) 0.9 % (0-2); EOSINOPHILS % (AUTO) 0.9 % (0-6); HEMATOCRIT 38.7 % (36.0-47.0); HEMOGLOBIN 12.8 g/dL (12.0-15.5); LYMPHOCYTES % (AUTO) 32.3 % (13-45); MEAN CORPUSCULAR HGB CONC 33.2 g/dL (32.0-36.0); MEAN CORPUSCULAR VOLUME 87 fl (80-97); MONOCYTES % (AUTO) 7.8 % (3-13); PLATELET COUNT 363 10^3/uL (150-450); RED BLOOD COUNT 4.44 10^6/uL (3.72-5.28); SEGMENTED NEUTROPHILS % (AUTO) 58.1 % (42-78); TOTAL CELLS COUNTED % (AUTO) 100 %
[2018-08-16 04:32] LABS: ALANINE AMINOTRANSFERASE 20 U/L (9-52); ALBUMIN 3.4 g/dL (3.5-5.0); ALKALINE PHOSPHATASE 111 U/L (38-126); ANION GAP 9 (5-19); ASPARTATE AMINO TRANSFERASE 22 U/L (14-36); BILIRUBIN,DIRECT 0.2 mg/dL (0.0-0.4); BILIRUBIN,TOTAL 0.5 mg/dL (0.2-1.3); BLOOD UREA NITROGEN 16 mg/dL (7-20); CALCIUM 9.2 mg/dL (8.4-10.2); CARBON DIOXIDE 32 mmol/L (22-30); CHLORIDE 100 mmol/L (98-107); GLUCOSE 178 mg/dL (75-110); LIPASE 211.3 U/L (23-300); POTASSIUM 4.1 mmol/L (3.6-5.0); SODIUM 140.6 mmol/L (137-145); TOTAL PROTEIN 7.1 g/dL (6.3-8.2)
--- NOTE | 2018-08-16 04:46 | RADIOLOGY REPORT (SQ) ---
EXAM DESCRIPTION: XR CHEST 1 VIEW COMPLETED DATE/TME: 08/16/2018 04:15 CLINICAL HISTORY: 38 years Female, chest pain COMPARISON:12/17/2016 NUMBER OF VIEWS/TECHNIQUE: 1/AP, limitation: Rotation artifact. FINDINGS: Adequate lung volume, clear parenchyma, mildly enlarged cardiac silhouette, and intact bony thorax. IMPRESSION: Mild cardiac enlargement.
[2018-08-16] MEDS ORDERED: NORMAL SALINE 1000 ML 1,000 ML IV ONE ×2 (05:02→06:18)
--- NOTE | 2018-08-16 05:23 | RADIOLOGY REPORT (SQ) ---
EXAM DESCRIPTION: US ABDOMEN LIMITED COMPLETED DATE/TME: 08/16/2018 04:16 CLINICAL HISTORY: 38 years Female, abdominal pain Comparison:12/08/2014 LIMITATIONS: Body habitus. FINDINGS: Gallbladder, negative sonographic Roberts's test, liver partially obscured, a 0.2-cm diameter common bile duct, no intrahepatic ductal dilation, 12-cm right kidney with mild hydronephrosis pattern, partially obscured pancreas, visualized vasculature/abdominal aorta, and no significant ascites appear otherwise unremarkable. IMPRESSION: Mild right hydronephrosis pattern. Limitation.
[2018-08-16] MEDS ORDERED: MORPHINE SULFATE 10 MG/ML INJ IV ONE (05:35)
[2018-08-16] MEDS ORDERED: FAMOTIDINE 20 MG TABLET PO ONE (06:12)
[2018-08-16] MEDS ORDERED: SUCRALFATE 1 GM TABLET PO ONE (06:12)
[2018-08-16] MEDS ORDERED: PROMETHAZINE HCL 25 MG TABLET PO ONE (06:13)
--- NOTE | 2018-08-16 07:17 | EKG REPORT ---
SEVERITY:- OTHERWISE NORMAL ECG - SINUS TACHYCARDIA : Confirmed by: Joe Drake MD 16-Aug-2018 07:16:41
[2018-08-16 08:39] LABS: APPEARANCE,URINE CLEAR; BILIRUBIN,URINE NEGATIVE (NEGATIVE); COLOR,URINE YELLOW; GLUCOSE, URINE 50 mg/dL (NEGATIVE); KETONES,URINE NEGATIVE (NEGATIVE); LEUKOCYTE ESTERASE,URINE MODERATE (NEGATIVE); NITRITE,URINE NEGATIVE (NEGATIVE); PROTEIN,URINE NEGATIVE (NEGATIVE); URINE SPECIFIC GRAVITY 1.017; UROBILINOGEN,URINE NEGATIVE mg/dL (<2.0)
--- NOTE | 2018-08-16 09:50 | RADIOLOGY REPORT (SQ) ---
EXAM DESCRIPTION: CT LTD RENAL STONE PROTOCOL ON COMPLETED DATE/TIME: 08/16/2018 9:27 am REASON FOR STUDY: eval for renal stone/hydronephrosis COMPARISON: Abdominal ultrasound 08/16/2018, 12/08/2014 CT abdomen pelvis 06/06/2013 TECHNIQUE: CT scan of the abdomen and pelvis performed without intravenous or oral contrast. Images reviewed with lung, soft tissue, and bone windows. Reconstructed coronal and sagittal MPR images revi ewed. All images stored on PACS. All CT scanners at this facility use dose modulation, iterative reconstruction, and/or weight based d osing when appropriate to reduce radiation dose to as low as reasonably achievable (ALARA). [facility]: Dose Right [facility]: CareDose [facility]: Dose Right [facility]: Teradose 4D [facility]: ImmunotEGG RADIATION DOSE: CT Rad equipment meets quality standard of care and radiation dose reduction techniq ues were employed. CTDIvol: 19.2 mGy. DLP: 1037 mGy-cm.mGy. LIMITATIONS: None. FINDINGS: LOWER CHEST: No significant findings. No nodules or infiltrates. NON-CONTRASTED LIVER, SPLEEN, ADRENALS: Evaluation limited by lack of IV contrast. No identified sign ificant masses. PANCREAS: No masses. No peripancreatic inflammatory changes. GALLBLADDER: No identified stones by CT criteria. No inflammatory changes to suggest cholecystitis. RIGHT KIDNEY AND URETER: No suspicious masses. Assessment limited by lack of IV contrast. No signif icant calcifications. No hydronephrosis or hydroureter. LEFT KIDNEY AND URETER: No suspicious masses. Assessment limited by lack of IV contrast. No signifi cant calcifications. No hydronephrosis or hydroureter. AORTA AND RETROPERITONEUM: No aneurysm. No retroperitoneal masses or adenopathy. BOWEL AND PERITONEAL CAVITY: No obvious masses or inflammatory changes. No free fluid. APPENDIX: Normal. PELVIS, BLADDER, AND ABDOMINAL WALL:No abnormal masses. No free fluid. Bladder normal. BONES: No significant findings. OTHER: No other significant finding. IMPRESSION: NO SIGNIFICANT OR ACUTE PROCESS IN THE ABDOMEN OR PELVIS. COMMENT: Quality ID # [id number]: Final reports with documentation of one or more dose reduction techniques (e.g., Automated exposure control, adjustment of the mA and/or kV according to patient size, use of iterative reconstruction technique) TECHNICAL DOCUMENTATION: JOB ID: [id number]- All Rights Reserved Reading location - IP/workstation name: [email or web address]
[2018-08-16] MEDS ORDERED: HYDROCHLOROTHIAZIDE 12.5 MG TABLET PO ONE (11:00)
[2018-08-16] MEDS ORDERED: LOSARTAN POTASSIUM 50 MG TABLET PO ONE (11:00)
[2018-08-16 11:10] VITALS: BP 162/108
== END 2018-08-16 11:21 | disposition home or self-care (01) ==
LOC: ER 03:31
DX: N30.90 Cystitis, unspecified without hematuria (principal); R10.10 Upper abdominal pain, unspecified; Z87.442 Personal history of urinary calculi; R11.2 Nausea with vomiting, unspecified; R51 Headache; I11.9 Hypertensive heart disease without heart failure; R07.9 Chest pain, unspecified; E11.9 Type 2 diabetes mellitus without complications; I25.10 Atherosclerotic heart disease of native coronary artery without angina pectoris; E66.01 Morbid (severe) obesity due to excess calories
CPT/HCPCS: 93005; 99285; 96361; 96374; 96375; 36415; 87086; 83690; 85025; 81025; 87088; 80053; 81001; 71045; 76705; 76380; 93010; J1885; J2270; J2405; J7030

== ENCOUNTER 2018-09-23 15:47 | Emergency (ER) | payer BC ==
[2018-09-23] MEDS ORDERED: CLINDAMYCIN PHOSPHATE INJ 300 MG/2 ML SDV IM STA (18:43)
[2018-09-23] MEDS ORDERED: DOXYCYCLINE HYCLATE 100 MG TABLET PO ONE (18:44)
--- NOTE | 2018-09-23 18:45 | ER Document Report ---
ED Skin Rash/Insect Bite/Abscs - General Chief Complaint: Abscess Stated Complaint: ABSCESSES/ABDOMIN AND RIGHT THIGH Time Seen by Provider: 09/23/18 18:14 Mode of Arrival: Ambulatory Information source: Patient, Relative Notes: Patient is a 38-year-old female comes emergency room complaining of 2 areas of abscess one on her lower right side abdominal area and one in her right groin area. Patient has a history of these in the past and has been significant with having to go to the OR to have a opened and drained. So she is here early on to get these drained this occurred starting last and has progressed a little slowly but surely over the period of time. She denies any fevers but does state that the wound on the lower abdomen did drain for a little time on its own and one in her right groin area is very small and just had a pimple type head on as of this morning when it popped off. Patient is an insulin- dependent diabetic, hypertensive, hyperlipidemia and renal disease. TRAVEL OUTSIDE OF THE [place] IN LAST 30 DAYS: No - HPI Patient complains to provider of: Tender/swollen area Onset: Other - 4 days ago Onset/Duration: Gradual Quality of pain: Pressure, Sharp, Throbbing Severity: Moderate Pain Level: 3 Skin Character: Papules, Swelling, Tenderness, Thickening Skin Temperature: Warm Quality of rash: Painful Identify cause: No Exacerbated by: Denies Relieved by: Denies Similar symptoms previously: Yes Recently seen / treated by doctor: No - Related Data Allergies/Adverse Reactions: cephalexin [From Keflex] Allergy (Verified 09/23/18 17:55) Penicillins Allergy (Verified 11/02/17 17:07) onion Allergy (Uncoded 11/02/17 17:07) Past Medical History - General Information source: Patient, Relative - Social History Smoking Status: Never Smoker Cigarette use (# per day): No Chew tobacco use (# tins/day): No Smoking Education Provided: No Frequency of alcohol use: None Drug Abuse: None Lives with: Family Family History: Reviewed & Not Pertinent, CAD, CVA Patient has suicidal ideation: No Patient has homicidal ideation: No - Past Medical History Cardiac Medical History: Reports: Hx Coronary Artery Disease, Hx Hypercholesterolemia, Hx Hypertension Denies: Hx Congestive Heart Failure, Hx Heart Attack Pulmonary Medical History: Denies: Hx Asthma, Hx Bronchitis, Hx COPD, Hx Pneumonia, Hx Tuberculosis Neurological Medical History: Denies: Hx Seizures Endocrine Medical History: Reports: Hx Diabetes Mellitus Type 2 - on Lantus, she does not have a PCM Renal/ Medical History: Reports: Hx Kidney Stones. Denies: Hx End Stage Renal Disease, Hx Peritoneal Dialysis GI Medical History: Denies: Hx Cirrhosis, Hx Gastroesophageal Reflux Disease, Hx Ulcer Musculoskeletal Medical History: Denies Hx Arthritis, Denies Hx Multiple Sclerosis Psychiatric Medical History: Denies: Hx Bipolar Disorder, Hx Depression, Hx Schizophrenia Past Surgical History: Reports: Hx Cardiac Catheterization, Hx Genitourinary Surgery - vaginal surgery age 20, Hx Gynecologic Surgery, Hx Kidney (Renal Surgery) - kidney stone removal - Immunizations Hx Diphtheria, Pertussis, Tetanus Vaccination: No Hx Pneumococcal Vaccination: 09/10/13 Review of Systems - Review of Systems Constitutional: No symptoms reported EENT: No symptoms reported Cardiovascular: No symptoms reported Respiratory: No symptoms reported Gastrointestinal: No symptoms reported Genitourinary: No symptoms reported Female Genitourinary: No symptoms reported Musculoskeletal: No symptoms reported Skin: See HPI, Lesions Hematologic/Lymphatic: No symptoms reported Neurological/Psychological: No symptoms reported -: Yes All other systems reviewed and negative Physical Exam - Vital signs Vitals: Temp Pulse Resp BP Pulse Ox 98.3 F 107 H 16 147/103 H 99 09/23/18 15:54 09/23/18 15:54 09/23/18 15:54 09/23/18 15:54 09/23/18 15:54 Interpretation: Hypertensive, Tachycardic - Notes Notes: PHYSICAL EXAMINATION: GENERAL: Well-appearing, well-nourished and in no acute distress. HEAD: Atraumatic, normocephalic. NECK: Normal range of motion, supple without lymphadenopathy LUNGS: Breath sounds clear to auscultation bilaterally and equal. No wheezes rales or rhonchi. HEART: Regular rate and rhythm without murmurs ABDOMEN: Examination of patient's area of concern is her right lower abdominal area. Patient is a rather large woman and has a little overhang where the end of that right lower quadrant area she has a tender slightly indurated area that is nonfluctuant at this time. Moderate tenderness to palpation. She has a central location where it appears that had ruptured drained on its own or with her help. This is now scabbed over. The approximate length is about 4 cm but it is larger in the center and tapers down the center is approximately 2 cm wide. The palpation of it again is a firm type of a presentation more than fluctuant. The right groin area is a small area of less than a centimeter does not appear to be or feel very deep and has the head already off and slight amount of pus still present but again no area for I&D. Female : deferred Musculoskeletal: Normal range of motion, no pitting or edema. No cyanosis. NEUROLOGICAL see abdomen above normal speech, normal gait. Normal sensory, motor exams PSYCH: Normal mood, normal affect. SKIN: See abdomen above Course - Re-evaluation Re-evalutation: 09/23/18 18:57 I discussed options with patient that I did not feel that this was an area that needed I&D currently that I felt that had oozed out most of it and this was just inflamed tissue. Although I did offer her to do an ultrasound of the area at bedside to swing the decision to I&D or not and she agreed to this. The ultrasound at bedside did not show any cavitation with suggestion of abscess. So we have elected to do oral antibiotics and to monitor her for the next 2 days until the antibiotics have time to kick in. She will return to ER sooner if for any reason this gets to developing into a larger area. The groin area is at this point not an item since it is already just a very small pimple type size and already opened. - Vital Signs Vital signs: Temp Pulse Resp BP Pulse Ox 98.3 F 107 H 16 147/103 H 99 09/23/18 15:54 09/23/18 15:54 09/23/18 15:54 09/23/18 15:54 09/23/18 15:54 Discharge - Discharge Clinical Impression: Abscess Condition: Stable Disposition: HOME, SELF-CARE Instructions: Abscess ([facility]), Oral Narcotic Medication ([facility]) Additional Instructions: As we discussed the scenario that does not need I&D the right now. We will place you on only one antibiotic at this time and taking doxycycline which is stronger. He will take 1 pill twice a day. I will write you for a little pain medication for the next day or 2. Use warm moist compresses 3 or 4 times a day and this is a moist rag or towel that is as warm as you can stand it out of the sink not out of the microwave. Should it start to form ahead let it open on its own. If for any reason he gets larger over the next hours or day return to ER and we will I&D it then. Use warm compresses also on the lower groin area. Again return to ER if you have any concerns or problems. Prescriptions: Doxycycline Hyclate 100 mg PO BID #20 capsule Fluconazole [Diflucan] 150 mg PO ONCE PRN #1 tablet PRN Reason: Hydrocodone/Acetaminophen [Mcdade 5-325 mg Tablet] 1 tab PO Q4 PRN #12 tablet PRN Reason: Forms: Elevated Blood Pressure Referrals: LUCIO ENRIQUE PA-C [Primary Care Provider] - Follow up as needed
[2018-09-23 19:31] VITALS: BP 140/95
== END 2018-09-23 19:25 | disposition home or self-care (01) ==
LOC: ER 15:47
DX: L02.211 Cutaneous abscess of abdominal wall (principal); L02.214 Cutaneous abscess of groin; Z88.0 Allergy status to penicillin; Z88.3 Allergy status to other anti-infective agents; I25.10 Atherosclerotic heart disease of native coronary artery without angina pectoris; E78.00 Pure hypercholesterolemia, unspecified; I10 Essential (primary) hypertension; E11.9 Type 2 diabetes mellitus without complications; Z79.4 Long term (current) use of insulin; Z87.442 Personal history of urinary calculi
CPT/HCPCS: 99282; 96372; J3490

== ENCOUNTER → 2018-10-19 | Outpatient (CLI) | payer BC ==
[2018-10-19 10:44] LABS: ABSOLUTE EOSINOPHILS # (AUTO) 0.1 10^3/uL (0.0-0.6); ABSOLUTE LYMPHOCYTES (AUTO) 2.2 10^3/uL (0.5-4.7); ABSOLUTE MONOCYTES (AUTO) 0.6 10^3/uL (0.1-1.4); ABSOLUTE NEUT (AUTO) 5.6 10^3/uL (1.7-8.2); BASOPHILS % (AUTO) 0.5 % (0-2); HEMATOCRIT 37.7 % (36.0-47.0); HEMOGLOBIN 12.7 g/dL (12.0-15.5); LYMPHOCYTES % (AUTO) 25.7 % (13-45); MEAN CORPUSCULAR HEMOGLOBIN 29.1 pg (27.0-33.4); MEAN CORPUSCULAR HGB CONC 33.6 g/dL (32.0-36.0); MEAN CORPUSCULAR VOLUME 87 fl (80-97); MONOCYTES % (AUTO) 6.8 % (3-13); PLATELET COUNT 366 10^3/uL (150-450); RED BLOOD COUNT 4.36 10^6/uL (3.72-5.28); RED CELL DISTRIBUTION WIDTH 13.2 % (11.5-14.0); TOTAL CELLS COUNTED % (AUTO) 100 %; WHITE BLOOD COUNT 8.4 10^3/uL (4.0-10.5)
[2018-10-19 10:59] LABS: ALANINE AMINOTRANSFERASE 42 U/L (9-52); ALBUMIN 3.7 g/dL (3.5-5.0); ALKALINE PHOSPHATASE 128 U/L (38-126); ANION GAP 9 (5-19); ASPARTATE AMINO TRANSFERASE 27 U/L (14-36); BILIRUBIN,DIRECT 0.1 mg/dL (0.0-0.4); BILIRUBIN,TOTAL 0.5 mg/dL (0.2-1.3); BLOOD UREA NITROGEN 16 mg/dL (7-20); CALCIUM 9.2 mg/dL (8.4-10.2); CARBON DIOXIDE 29 mmol/L (22-30); CHLORIDE 100 mmol/L (98-107); CHOLESTEROL 177.96 mg/dL (0-200); GLUCOSE 181 mg/dL (75-110); POTASSIUM 4.4 mmol/L (3.6-5.0); TRIGLYCERIDES 122 mg/dL (<150)
[2018-10-19 11:10] LABS: DIRECT LDL 111 mg/dL (<100)
[2018-10-21 14:40] LABS: CREATININE URINE 207.5 mg/dL (Not Estab.); MICROALBUMIN URINE 349.5 ug/mL (Not Estab.)
== END ==
LOC: OD 09:45
PROVIDERS: ATTEND Family Medicine
DX: E11.9 Type 2 diabetes mellitus without complications (principal); R63.5 Abnormal weight gain; R53.83 Other fatigue
CPT/HCPCS: 36415; 80053; 80061; 82043; 82570; 83036; 84443; 85025

== ENCOUNTER → 2018-11-08 | Outpatient (CLI) | payer BC ==
--- NOTE | 2018-11-08 12:43 | WOMENS IMAGING REPORT ---
EXAM DESCRIPTION: U/S PELVIS NON-OB COMPLETED DATE/TIME: 11/08/2018 12:32 pm REASON FOR STUDY: N92.6 IRREGULAR MENSTRUATION, UNSPECIFIED N92.6 IRREGULAR MENSTRUATION, UNSPECIFI ED COMPARISON: None. TECHNIQUE: Dynamic and static grayscale images acquired of the pelvis via transabdominal approach an d recorded on PACS. Additional selected color Doppler and spectral images recorded. LIMITATIONS: Study limited due to the patient's obesity. FINDINGS: UTERUS: Contour normal. No mass. ENDOMETRIAL STRIPE: No focal or generalized thickening. No masses. CERVIX: No nabothian cysts. RIGHT OVARY AND DOPPLER: Normal size. No worrisome masses. Normal arterial vascular flow without evid ence for torsion. LEFT OVARY AND DOPPLER: Normal size. No worrisome masses. Normal arterial vascular flow without evide nce for torsion. FREE FLUID: None noted. OTHER: No other significant finding. MEASUREMENTS: UTERUS: 4.0 x 5.1 x 8.4 cm. ENDOMETRIAL STRIPE: 3.6 mm. RIGHT OVARY: 2.3 x 2.6 x 3.0 cm. LEFT OVARY: 1.7 x 2.6 x 3.1 cm. IMPRESSION: NORMAL PELVIC ULTRASOUND BY TRANSABDOMINAL TECHNIQUE. TECHNICAL DOCUMENTATION: JOB ID: [id number] [employer]- All Rights Reserved Rev-02/22 Reading location - IP/workstation name: [email or web address]
== END ==
LOC: WI 10:34
PROVIDERS: ATTEND Family Medicine
DX: N92.6 Irregular menstruation, unspecified (principal)
CPT/HCPCS: 76856

== ENCOUNTER → 2018-11-12 | Outpatient (CLI) | payer BC ==
[2018-11-15 07:21] LABS: TESTOSTERONE FREE (DIRECT) 1.2 pg/mL (0.0-4.2)
== END ==
LOC: OD 16:39
PROVIDERS: ATTEND Family Medicine
DX: N92.6 Irregular menstruation, unspecified (principal)
CPT/HCPCS: 36415; 82670; 83001; 83002; 84402; 84403

== ENCOUNTER → 2018-12-20 | Outpatient (CLI) | payer BC ==
[2018-12-20 16:22] LABS: ABSOLUTE BASOPHILS # (AUTO) 0.1 10^3/uL (0.0-0.2); ABSOLUTE EOSINOPHILS # (AUTO) 0.1 10^3/uL (0.0-0.6); ABSOLUTE LYMPHOCYTES (AUTO) 2.9 10^3/uL (0.5-4.7); ABSOLUTE MONOCYTES (AUTO) 0.8 10^3/uL (0.1-1.4); ABSOLUTE NEUT (AUTO) 5.6 10^3/uL (1.7-8.2); BASOPHILS % (AUTO) 0.8 % (0-2); EOSINOPHILS % (AUTO) 0.6 % (0-6); HEMATOCRIT 33.6 % (36.0-47.0); HEMOGLOBIN 11.3 g/dL (12.0-15.5); LYMPHOCYTES % (AUTO) 31.1 % (13-45); MEAN CORPUSCULAR HEMOGLOBIN 29.3 pg (27.0-33.4); MEAN CORPUSCULAR HGB CONC 33.8 g/dL (32.0-36.0); MEAN CORPUSCULAR VOLUME 87 fl (80-97); MONOCYTES % (AUTO) 8.5 % (3-13); PLATELET COUNT 334 10^3/uL (150-450); RED BLOOD COUNT 3.87 10^6/uL (3.72-5.28); RED CELL DISTRIBUTION WIDTH 13.4 % (11.5-14.0); TOTAL CELLS COUNTED % (AUTO) 100 %; WHITE BLOOD COUNT 9.4 10^3/uL (4.0-10.5)
== END ==
LOC: OD 15:15
PROVIDERS: ATTEND Family Medicine
DX: N93.9 Abnormal uterine and vaginal bleeding, unspecified (principal)
CPT/HCPCS: 36415; 84703; 85025

== ENCOUNTER → 2019-01-03 | Outpatient (CLI) | payer BC ==
--- NOTE | 2019-01-03 15:59 | RADIOLOGY REPORT (SQ) ---
EXAM DESCRIPTION: CHEST PA/LATERAL COMPLETED DATE/TIME: 01/03/2019 3:50 pm REASON FOR STUDY: COUGH COMPARISON: 08/16/2018 EXAM PARAMETERS: NUMBER OF VIEWS: two views TECHNIQUE: Digital Frontal and Lateral radiographic views of the chest acquired. RADIATION DOSE: NA LIMITATIONS: none FINDINGS: LUNGS AND PLEURA: No opacities, masses or pneumothorax. No pleural effusion. MEDIASTINUM AND HILAR STRUCTURES: No masses or contour abnormalities. HEART AND VASCULAR STRUCTURES: Heart normal size. No evidence for failure. BONES: No acute findings. HARDWARE: None in the chest. OTHER: No other significant finding. IMPRESSION: NO SIGNIFICANT RADIOGRAPHIC FINDING IN THE CHEST. TECHNICAL DOCUMENTATION: JOB ID: [id number] [employer]- All Rights Reserved Reading location - IP/workstation name: [email or web address]
== END ==
LOC: OD 15:31
PROVIDERS: ATTEND Family Medicine Geriatric Medicine
DX: R05 Cough (principal)
CPT/HCPCS: 71046

== ENCOUNTER → 2019-01-14 | Outpatient (CLI) | payer BC ==
--- NOTE | 2019-01-15 18:11 | XCELERA REPORT ---
[address] [address] Transthoracic Echocardiogram Report Name: MEMO VEGA Age: 38 yrs Gender: Female : 1980 Patient Status: Outpatient Patient Location: Study Date: 01/14/2019 02:47 PM Height: 66 in Weight: 292 lb BSA: 2.3 m2 Procedure: A complete two-dimensional transthoracic echocardiogram was performed (2D, M-mode, spectral and color flow Doppler). The study was technically difficult with many images being suboptimal in quality. Reason For Study: SOB Ordering Physician: PATRICIA ESCOBEDO Performed By: Cheri Samuel Interpretation Summary The study was technically difficult with many images being suboptimal in quality. Left ventricular systolic function is mildly reduced. LV EF is 50% Doppler measurements suggest pseudonormalized left ventricular relaxation, which is associated with grade II/IV or mild to moderate diastolic dysfunction Wall motion cannot be accurately commented on, but no definite regional wall motion abnormalities noted. There is mild concentric left ventricular hypertrophy. The left ventricle is grossly normal size. The right ventricular systolic function is normal. The left atrial size is normal. The right atrium is normal. There is a trace to mild amount of mitral regurgitation There is no mitral valve stenosis. No aortic regurgitation is present. There is no aortic valve stenosis There is a trace or physiologic amount of tricuspid regurgitation Tricuspid regurgitation jet envelope not well defined to measure RV systolic pressure accurately. The pulmonic valve is not well visualized. The aortic root is not well visualized. The inferior vena cava was not well visualized There is no pericardial effusion. MMode/2D Measurements & Calculations RVDd: 2.1 cm LVIDd: 5.2 cm FS: 26.0 % Ao root diam: 2.6 cm IVSd: 1.2 cm LVIDs: 3.8 cm EDV(Teich): 128.6 ml Ao root area: 5.4 cm2 LVPWd: 1.2 cm ESV(Teich): 63.4 ml LA dimension: 3.4 cm EF(Teich): 50.7 % Doppler Measurements & Calculations MV E max nga: MV P1/2t max nga: Ao V2 max: LV V1 max P.2 cm/sec 63.7 cm/sec 121.8 cm/sec 2.2 mmHg MV A max nga: MV P1/2t: 68.1 msec Ao max PG: LV V1 max: 81.9 cm/sec MVA(P1/2t): 3.2 cm2 5.9 mmHg 74.0 cm/sec MV E/A: 0.77 MV dec slope: 274.0 cm/sec2 MV dec time: 0.24 sec PA V2 max: MV P1/2t-pr_phl: 85.4 cm/sec 68.1 msec PA max P.9 mmHg Left Ventricle The left ventricle is grossly normal size. There is mild concentric left ventricular hypertrophy. Left ventricular systolic function is mildly reduced. LV EF is 50%. Doppler measurements suggest pseudonormalized left ventricular relaxation, which is associated with grade II/IV or mild to moderate diastolic dysfunction. Wall motion cannot be accurately commented on, but no definite regional wall motion abnormalities noted. Right Ventricle The right ventricle is grossly normal size. There is normal right ventricular wall thickness. The right ventricular systolic function is normal. Atria The right atrium is normal. The left atrial size is normal. Interarterial septum not well visualized and not well dopplered. Cannot comment on ASD/PFO presence. Mitral Valve The mitral valve is grossly normal. There is no mitral valve stenosis. There is a trace to mild amount of mitral regurgitation. Aortic Valve The aortic valve is not well visualized secondary to technical limitations. There is no aortic valve stenosis. No aortic regurgitation is present. Tricuspid Valve The tricuspid valve is not well visualized secondary to technical limitations. There is no tricuspid stenosis. There is a trace or physiologic amount of tricuspid regurgitation. Tricuspid regurgitation jet envelope not well defined to measure RV systolic pressure accurately. Pulmonic Valve The pulmonic valve is not well visualized. Great Vessels The aortic root is not well visualized. The inferior vena cava was not well visualized. Effusions There is no pericardial effusion. Incidental Findings Consider alternative methods to evaluate LVEF such as MUGA scan, cardiac MRI, or cardiac CTA. : PATRICIA ESCOBEDO > Ashia Dick
== END ==
LOC: SP 14:44
PROVIDERS: ATTEND Family Medicine Geriatric Medicine
DX: R06.02 Shortness of breath (principal)
CPT/HCPCS: 93306

== ENCOUNTER → 2019-02-20 | Outpatient (CLI) | payer BC ==
[2019-02-20 17:33] LABS: ABSOLUTE BASOPHILS # (AUTO) 0.1 10^3/uL (0.0-0.2); ABSOLUTE MONOCYTES (AUTO) 0.6 10^3/uL (0.1-1.4); ABSOLUTE NEUT (AUTO) 4.6 10^3/uL (1.7-8.2); BASOPHILS % (AUTO) 1.1 % (0-2); EOSINOPHILS % (AUTO) 0.5 % (0-6); HEMATOCRIT 38.1 % (36.0-47.0); HEMOGLOBIN 12.7 g/dL (12.0-15.5); LYMPHOCYTES % (AUTO) 36.2 % (13-45); MEAN CORPUSCULAR HEMOGLOBIN 28.9 pg (27.0-33.4); MEAN CORPUSCULAR HGB CONC 33.2 g/dL (32.0-36.0); MEAN CORPUSCULAR VOLUME 87 fl (80-97); MONOCYTES % (AUTO) 6.7 % (3-13); PLATELET COUNT 414 10^3/uL (150-450); RED BLOOD COUNT 4.37 10^6/uL (3.72-5.28); RED CELL DISTRIBUTION WIDTH 13.6 % (11.5-14.0); SEGMENTED NEUTROPHILS % (AUTO) 55.5 % (42-78); TOTAL CELLS COUNTED % (AUTO) 100 %; WHITE BLOOD COUNT 8.3 10^3/uL (4.0-10.5)
--- NOTE | 2019-02-20 17:37 | RADIOLOGY REPORT (SQ) ---
EXAM DESCRIPTION: CHEST SINGLE VIEW COMPLETED DATE/TIME: 02/20/2019 5:12 pm REASON FOR STUDY: MORBID (SEVERE) OBESITY DUE TO EXCESS CALORIES COMPARISON: AP chest 01/03/2019 EXAM PARAMETERS: NUMBER OF VIEWS: One view. TECHNIQUE: Single frontal radiographic view of the chest acquired. RADIATION DOSE: NA LIMITATIONS: None. FINDINGS: LUNGS AND PLEURA: No opacities, masses or pneumothorax. No pleural effusion. MEDIASTINUM AND HILAR STRUCTURES: No masses. Contour normal. HEART AND VASCULAR STRUCTURES: Heart normal in size. Normal vasculature. BONES: No acute findings. HARDWARE: None in the chest. OTHER: No other significant finding. IMPRESSION: NO ACUTE RADIOGRAPHIC FINDING IN THE CHEST. TECHNICAL DOCUMENTATION: JOB ID: [id number] [employer]- All Rights Reserved Reading location - IP/workstation name: [email or web address]
[2019-02-20 17:44] LABS: ALANINE AMINOTRANSFERASE 26 U/L (9-52); ALBUMIN 3.9 g/dL (3.5-5.0); ALKALINE PHOSPHATASE 112 U/L (38-126); ANION GAP 12 (5-19); ASPARTATE AMINO TRANSFERASE 26 U/L (14-36); BILIRUBIN,DIRECT 0.3 mg/dL (0.0-0.4); BILIRUBIN,TOTAL 0.4 mg/dL (0.2-1.3); BLOOD UREA NITROGEN 19 mg/dL (7-20); CALCIUM 10.1 mg/dL (8.4-10.2); CARBON DIOXIDE 30 mmol/L (22-30); CHLORIDE 97 mmol/L (98-107); GLUCOSE 153 mg/dL (75-110); POTASSIUM 4.6 mmol/L (3.6-5.0); TOTAL PROTEIN 7.9 g/dL (6.3-8.2)
--- NOTE | 2019-02-20 20:05 | EKG REPORT ---
SEVERITY:- ABNORMAL ECG - SINUS RHYTHM LEFT VENTRICULAR HYPERTROPHY : Confirmed by: Joe Drake MD 20-Feb-2019 20:03:55
== END ==
LOC: OD 16:42
PROVIDERS: ATTEND Surgery
DX: E66.01 Morbid (severe) obesity due to excess calories (principal)
CPT/HCPCS: 36415; 71045; 80053; 84443; 85025; 93005; 93010

== ENCOUNTER 2019-03-06 11:28 | Emergency (ER) | payer BC ==
[2019-03-06] MEDS ORDERED: ASPIRIN 81 MG TABLET, CHEWABLE PO ONE (11:51)
[2019-03-06 12:30] LABS: ABSOLUTE BASOPHILS # (AUTO) 0.1 10^3/uL (0.0-0.2); ABSOLUTE EOSINOPHILS # (AUTO) 0.1 10^3/uL (0.0-0.6); ABSOLUTE LYMPHOCYTES (AUTO) 2.2 10^3/uL (0.5-4.7); ABSOLUTE MONOCYTES (AUTO) 0.6 10^3/uL (0.1-1.4); ABSOLUTE NEUT (AUTO) 5.3 10^3/uL (1.7-8.2); BASOPHILS % (AUTO) 0.8 % (0-2); EOSINOPHILS % (AUTO) 0.8 % (0-6); HEMATOCRIT 36.9 % (36.0-47.0); LYMPHOCYTES % (AUTO) 26.4 % (13-45); MEAN CORPUSCULAR HEMOGLOBIN 28.6 pg (27.0-33.4); MEAN CORPUSCULAR HGB CONC 32.4 g/dL (32.0-36.0); MEAN CORPUSCULAR VOLUME 88 fl (80-97); MONOCYTES % (AUTO) 7.1 % (3-13); PLATELET COUNT 337 10^3/uL (150-450); RED BLOOD COUNT 4.18 10^6/uL (3.72-5.28); RED CELL DISTRIBUTION WIDTH 13.6 % (11.5-14.0); SEGMENTED NEUTROPHILS % (AUTO) 64.9 % (42-78); TOTAL CELLS COUNTED % (AUTO) 100 %; WHITE BLOOD COUNT 8.2 10^3/uL (4.0-10.5)
--- NOTE | 2019-03-06 12:46 | RADIOLOGY REPORT (SQ) ---
EXAM DESCRIPTION: CHEST SINGLE VIEW COMPLETED DATE/TIME: 03/06/2019 12:08 pm REASON FOR STUDY: Chest pain COMPARISON: 02/20/2019 EXAM PARAMETERS: NUMBER OF VIEWS: One view. TECHNIQUE: Single frontal radiographic view of the chest acquired. RADIATION DOSE: NA LIMITATIONS: None. FINDINGS: LUNGS AND PLEURA: No opacities, masses or pneumothorax. No pleural effusion. MEDIASTINUM AND HILAR STRUCTURES: No masses. Contour normal. HEART AND VASCULAR STRUCTURES: Heart normal in size. Normal vasculature. BONES: No acute findings. HARDWARE: None in the chest. OTHER: No other significant finding. IMPRESSION: NO ACUTE RADIOGRAPHIC FINDING IN THE CHEST. TECHNICAL DOCUMENTATION: JOB ID: [id number] [employer]- All Rights Reserved Reading location - IP/workstation name: [email or web address]
[2019-03-06 12:58] LABS: ALANINE AMINOTRANSFERASE 31 U/L (9-52); ALBUMIN 3.5 g/dL (3.5-5.0); ALKALINE PHOSPHATASE 124 U/L (38-126); ANION GAP 10 (5-19); ASPARTATE AMINO TRANSFERASE 22 U/L (14-36); BILIRUBIN,DIRECT 0.3 mg/dL (0.0-0.4); BILIRUBIN,TOTAL 0.3 mg/dL (0.2-1.3); BLOOD UREA NITROGEN 16 mg/dL (7-20); CALCIUM 9.2 mg/dL (8.4-10.2); CARBON DIOXIDE 29 mmol/L (22-30); CHLORIDE 99 mmol/L (98-107); CREATINE KINASE 48 U/L (30-135); GLUCOSE 380 mg/dL (75-110); POTASSIUM 4.6 mmol/L (3.6-5.0); SODIUM 138.4 mmol/L (137-145); TOTAL PROTEIN 6.9 g/dL (6.3-8.2)
[2019-03-06 13:12] LABS: CREATINE KINASE MB 0.31 ng/mL (<4.55)
[2019-03-06 13:13] LABS: TROPONIN I < 0.012 ng/mL
--- NOTE | 2019-03-06 16:14 | EKG REPORT ---
SEVERITY:- ABNORMAL ECG - SINUS RHYTHM LEFT VENTRICULAR HYPERTROPHY : Confirmed by: Lainey Otero MD 06-Mar-2019 16:14:17
--- NOTE | 2019-03-06 16:51 | ER Document Report ---
ED General - General Chief Complaint: Chest Pain Stated Complaint: CHEST PAIN Time Seen by Provider: 03/06/19 11:51 Primary Care Provider: EVERARDO LIZ [Primary Care Provider] - Follow up as needed TRAVEL OUTSIDE OF THE [place] IN LAST 30 DAYS: No - HPI Notes: Patient is a 38-year-old female who presents to the emergency department for evaluation of chest pain. She states that she has had a cough that has been dry for over 2 years. As a result she had an echocardiogram. Echocardiogram revealed an EF of 50%, so she was sent for stress test. Stress test was performed today. It was when she was laying down to get her stress images that she started having chest tightness and pain. She was sent here to the emergency department for further evaluation. The patient states that her pain has slowly decreased to nothing at this time. She denies any associated shortness of breath. She has not had any exertional chest pain as of late. She does note that she had a cardiac catheterization about 5 years ago which was totally clean. - Related Data Allergies/Adverse Reactions: cephalexin [From Keflex] Allergy (Verified 09/23/18 17:55) Penicillins Allergy (Verified 11/02/17 17:07) onion Allergy (Uncoded 11/02/17 17:07) Past Medical History - General Information source: Patient - Social History Smoking Status: Never Smoker Chew tobacco use (# tins/day): No Frequency of alcohol use: None Drug Abuse: None Family History: Reviewed & Not Pertinent, CAD, CVA Patient has suicidal ideation: No Patient has homicidal ideation: No - Medical History Medical History: Other - Lupus - Past Medical History Cardiac Medical History: Reports: Hx Hypercholesterolemia, Hx Hypertension Denies: Hx Congestive Heart Failure, Hx Heart Attack Pulmonary Medical History: Denies: Hx Asthma, Hx Bronchitis, Hx COPD, Hx Pneumonia, Hx Tuberculosis Neurological Medical History: Denies: Hx Seizures Endocrine Medical History: Reports: Hx Diabetes Mellitus Type 2 - on Lantus, she does not have a PCM Renal/ Medical History: Reports: Hx Kidney Stones. Denies: Hx End Stage Renal Disease, Hx Peritoneal Dialysis GI Medical History: Denies: Hx Cirrhosis, Hx Gastroesophageal Reflux Disease, Hx Ulcer Musculoskeletal Medical History: Denies Hx Arthritis, Denies Hx Multiple Sclerosis Psychiatric Medical History: Denies: Hx Bipolar Disorder, Hx Depression, Hx Schizophrenia Past Surgical History: Reports: Hx Cardiac Catheterization, Hx Genitourinary Surgery - vaginal surgery age 20, Hx Gynecologic Surgery, Hx Kidney (Renal Surgery) - kidney stone removal - Immunizations Hx Diphtheria, Pertussis, Tetanus Vaccination: No Hx Pneumococcal Vaccination: 09/10/13 Review of Systems - Review of Systems Constitutional: No symptoms reported EENT: No symptoms reported Cardiovascular: See HPI Respiratory: No symptoms reported Gastrointestinal: No symptoms reported Genitourinary: No symptoms reported Female Genitourinary: No symptoms reported Musculoskeletal: No symptoms reported Skin: No symptoms reported Neurological/Psychological: No symptoms reported Physical Exam - Vital signs Vitals: Resp Pulse Ox 15 99 03/06/19 11:58 03/06/19 11:58 - Notes Notes: Vital signs reviewed, please refer to chart. Head is normocephalic, atraumatic. Pupils equal round, reactive to light. Neck is supple without meningismus. Heart is regular rate and rhythm. Lungs are clear to auscultation bilaterally. Mild chest wall tenderness that does not re-create the patient's pain. Abdomen is soft, nontender, normoactive bowel sounds throughout. Extremities without cyanosis, clubbing. Posterior calves are nontender. Peripheral pulses are equal. Skin is warm and dry. Patient is awake, alert, neurological exam is nonfocal. Course - Re-evaluation Re-evalutation: 03/06/19 17:52 Patient presents emergency department for evaluation of chest pain. I spoke with Dr. Dick. He oversaw the initial part of her stress test, which time she had absolutely no EKG changes. He did attempt to review the patient's stress imaging. He states that the images were degraded, he was not able to accurately interpret them. Patient remained chest pain-free throughout the course of her stay here in the emergency department. Her EKG was unremarkable. She had negative enzymes x2. Dr. Dodd did state that if she had a chest CT which failed to show significant coronary artery calcification, he thought it was reasonable to discharge the patient home. He also had suspicions that this may be in fact somewhat GI related. He asked that I place her on a PPI. Her coronaries were clear on CT. Her enzymes were negative x2. Patient is chest pain-free. We will get him started on a PPI and have her follow-up with primary care. She is to return to the emergency department with worsening or new concerning symptoms. She is certainly also to follow-up with Dr. Driver, her cement handler. - Vital Signs Vital signs: Temp Pulse Resp BP Pulse Ox 17 130/81 H 97 03/06/19 16:01 03/06/19 16:00 03/06/19 16:01 - Laboratory Result Diagrams: 03/06/19 12:16 03/06/19 12:16 Laboratory results interpreted by me: 03/06/19 12:16 Glucose 380 H - Diagnostic Test Radiology reviewed: Reports reviewed Radiology results interpreted by me: 03/06/19 17:53 Chest X-Ray 03/06/19 11:52 IMPRESSION: NO ACUTE RADIOGRAPHIC FINDING IN THE CHEST. Chest CT 03/06/19 16:46 IMPRESSION: NO SIGNIFICANT FINDING ON NON-CONTRASTED CHEST CT. - EKG Interpretation by Me Additional EKG results interpreted by me: 03/06/19 17:53 Sinus mechanism with a rate of 99 bpm. Normal axis and intervals, no acute ST changes concerning for ischemia or infarction. There are no old studies available for comparison. Discharge - Discharge Clinical Impression: Chest pain Condition: Stable Disposition: HOME, SELF-CARE Instructions: Chest Pain of Unclear Cause ([facility]) Additional Instructions: No cardiac cause was identified for your chest pain today. We will go ahead and start you on a medication for acid reflux, which may be helpful. Follow-up with your primary care physician this week. He should follow-up with your cement handler as well. Return to the emergency department with worsening or new concerning symptoms. Referrals: EVERARDO LIZ [Primary Care Provider] - Follow up as needed
--- NOTE | 2019-03-06 17:16 | RADIOLOGY REPORT (SQ) ---
EXAM DESCRIPTION: CT CHEST WITHOUT COMPLETED DATE/TIME: 03/06/2019 5:04 pm REASON FOR STUDY: eval coronary arteries COMPARISON: None. TECHNIQUE: CT scan performed of the chest without intravenous contrast. Images reviewed with lung, soft tissue and bone windows. Reconstructed coronal and sagittal MPR images reviewed. All images st ored on PACS. All CT scanners at this facility use dose modulation, iterative reconstruction, and/or weight based d osing when appropriate to reduce radiation dose to as low as reasonably achievable (ALARA). [facility]: Dose Right [facility]: CareDose [facility]: Dose Right [facility]: Teradose 4D [facility]: Smart Kewen RADIATION DOSE: CT Rad equipment meets quality standard of care and radiation dose reduction techniq ues were employed. CTDIvol: 29.7 mGy. DLP: 1075 mGy-cm. mGy. LIMITATIONS: No technical limitations. FINDINGS: LUNGS AND PLEURA: No masses, infiltrates, or pneumothorax. No pleural effusions or pleura l calcifications. HILAR AND MEDIASTINAL STRUCTURES: No identified masses or abnormal nodes. No obvious aneurysm. HEART AND VASCULAR STRUCTURES: No aneurysm. No coronary arterial calcifications. No pericardial eff usion. UPPER ABDOMEN: No significant findings. Limited exam. THYROID AND OTHER SOFT TISSUES: No masses. No adenopathy. BONES: No significant finding. HARDWARE: None in the chest. OTHER: No other significant findings. IMPRESSION: NO SIGNIFICANT FINDING ON NON-CONTRASTED CHEST CT. TECHNICAL DOCUMENTATION: JOB ID: [id number] Quality ID # [id number]: Final reports with documentation of one or more dose reduction techniques (e.g., Au tomated exposure control, adjustment of the mA and/or kV according to patient size, use of iterative reconstruction technique) 2010 [employer]- All Rights Reserved Reading location - IP/workstation name: [email or web address]
[2019-03-06 18:15] VITALS: BP 132/79
--- NOTE | 2019-03-06 19:45 | EKG REPORT ---
SEVERITY:- NORMAL ECG - SINUS RHYTHM : Confirmed by: Lainey Otero MD 06-Mar-2019 19:44:40
--- NOTE | 2019-03-09 20:49 | PDOC PROGRESS REPORT ---
Subjective Progress Note for:: 03/06/19 Subjective:: Pt seen at requuest of Dr. Zimmer. Patient had underwent a nuclear stress test earlier in the morning with Lexiscan. Subsequently while she was having stress imaging performed, she complained of chest pain. The nuclear tech noticed questionable ST segment changes. They did talk to me, I therefore asked the staff of nuclear medicine to transfer patient to the emergency room. Patient was evaluated by Dr. Zimmer. I went to see the patient, when I was asked to ev aluate patient as to see if she can be discharged. Patient has multiple cardiac risk factors. A cardiac catheterization 5 years ago was apparently clean. She does have diabetes, hypertension, dyslipidemia, strong family history of CAD and currently describes having been diagnosed with lupus. Patient does suffer from acid reflux but currently not on any medications. Reason For Visit: CHEST PAIN Physical Exam Vital Signs: Temp Pulse Resp BP Pulse Ox 98.0 F 25 H 132/79 H 100 03/06/19 18:14 03/06/19 18:00 03/06/19 18:14 03/06/19 18:00 Intake & Output 03/05/19 03/06/19 03/07/19 06:59 06:59 06:59 Weight 132.449 kg Exam: GENERAL: well-nourished and in no acute distress. Alert and oriented x3 HEAD: Atraumatic, normocephalic. EYES: EDUARDO, sclera anicteric, conjunctiva are normal. ENT: Moist mucous membranes. No oral ulcerations or bleeding gums noted. No obvious ear, nose or throat abnormalities noted. NECK: supple without lymphadenopathy. Trachea is central. No cervical or axillary lymphadenopathy noted. Carotids are 2+, JVD WNL LUNGS: Breath sounds clear bilaterally. No wheezes rales or rhonchi noted. No significant dullness noted on percussion. CHEST: Palpation of the chest wall shows mild chest wall tenderness. 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 ABDOMEN: Soft, no significant tenderness appreciated, normoactive bowel sounds. No guarding, no rebound. No rigidity noted . No masses appreciated. EXTREMITIES: Pedal pulses are 1-2+, no calf tenderness noted. No clubbing or cyanosis. negative pedal edema noted NEUROLOGICAL: Focused neurological exam showed no significant neurologic deficit. Normal speech, no focal weakness appreciated. PSYCH: Normal mood, normal affect. Judgment and insight within normal limits. SKIN: No significant ecchymosis, skin is noted to be warm. MUSCULOSKELETAL EXAM: No significant acute joint swelling noted. Results Laboratory Results: 03/06/19 12:16 03/06/19 12:16 03/06/19 03/06/19 12:16 12:16 WBC 8.2 RBC 4.18 Hgb 12.0 Hct 36.9 MCV 88 MCH 28.6 MCHC 32.4 RDW 13.6 Plt Count 337 Seg Neutrophils % 64.9 Lymphocytes % 26.4 Monocytes % 7.1 Eosinophils % 0.8 Basophils % 0.8 Absolute Neutrophils 5.3 Absolute Lymphocytes 2.2 Absolute Monocytes 0.6 Absolute Eosinophils 0.1 Absolute Basophils 0.1 Sodium 138.4 Potassium 4.6 Chloride 99 Carbon Dioxide 29 Anion Gap 10 BUN 16 Creatinine 0.91 Est GFR ( Amer) > 60 Est GFR (Non-Af Amer) > 60 Glucose 380 H Calcium 9.2 Total Bilirubin 0.3 AST 22 ALT 31 Alkaline Phosphatase 124 Total Protein 6.9 Albumin 3.5 03/06/19 03/06/19 03/06/19 12:16 12:16 16:00 Creatine Kinase 48 CK-MB (CK-2) 0.31 Troponin I < 0.012 < 0.012 EKG Comments: Sinus rhythm, no acute ST-T wave changes were noted. Impressions: Chest X-Ray 03/06/19 11:52 IMPRESSION: NO ACUTE RADIOGRAPHIC FINDING IN THE CHEST. Chest CT 03/06/19 16:46 IMPRESSION: NO SIGNIFICANT FINDING ON NON-CONTRASTED CHEST CT. Assessment & Plan - Diagnosis (1) Chest pain Qualifiers: Chest pain type: unspecified Qualified Code(s): R07.9 - Chest pain, unspecified Is this a current diagnosis for this admission?: Yes (2) Hypertension Qualifiers: Hypertension type: essential hypertension Qualified Code(s): I10 - Essential (primary) hypertension Is this a current diagnosis for this admission?: Yes (3) Hyperlipidemia Qualifiers: Hyperlipidemia type: unspecified Qualified Code(s): E78.5 - Hyperlipidemia, unspecified Is this a current diagnosis for this admission?: Yes (4) Obesity Qualifiers: Obesity type: unspecified obesity type Obesity classification: adult class 3 (BMI >= 40) Is this a current diagnosis for this admission?: Yes (5) Gastroesophageal reflux Qualifiers: Esophagitis presence: esophagitis presence not specified Qualified Code(s): K21.9 - Gastro-esophageal reflux disease without esophagitis Is this a current diagnosis for this admission?: Yes (6) Diabetes mellitus with hyperglycemia Qualifiers: Diabetes mellitus type: type 2 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 Patient does have some chest wall tenderness but does not really correlate with her symptoms. It was felt that further risk stratification is indicated. In this regard, I advised the ER physician to get a CT scan of the chest to look for coronary calcification. If significant coronary calcification is noted then patient should be admitted for for further evaluation as noted in my nuclear stress discussion. The nuclear stress test was technically very suboptimal and a decision could not be made just on that basis therefore a CT scan of the chest was ordered. This came back negative for any calcification. Patient has been chest pain-free, it was felt that patient be safe for discharge. I had a long discussion with the patient at bedside, various differential diagnosis was discussed. It seems patient would benefit from empiric treatment for gastroesophageal reflux. Patient will also benefit from sleep evaluation. She would like to have this performed. Patient encouraged to follow-up with her r d internship. Patient can follow-up with me for sleep apnea evaluation. - Time Time with patient: Greater than 35 minutes - Discussed with Dr. Zimmer and patient they are agreeable with this approach. Medications reviewed and adjusted accordingly: Yes
--- NOTE | 2019-03-09 20:53 | PDOC CONSULTATION ---
Consultation Consult Date: 03/06/19 Attending physician:: YESI ZIMMER Provider Consulted: Dr. Dick Consult reason:: Chest pain History of Present Illness Admission Date/PCP: EVERARDO LIZ Patient complains of: Chest pain History of Present Illness: MEMO VEGA is a 38 year old female seen at request of Dr. Zimmer. Patient had underwent a nuclear stress test earlier in the morning with Lexiscan. Subsequently while she was having stress imaging performed, she complained of chest pain. The nuclear tech noticed questionable ST segment changes. They did talk to me, I therefore asked the staff of nuclear medicine to transfer patient to the emergency room. Patient was evaluated by Dr. Zimmer. I went to see the patient, when I was asked to evaluate patient as to see if she can be discharged. Patient has multiple cardiac risk factors. A cardiac catheterization 5 years ago was apparently clean. She does have diabetes, hypertension, dyslipidemia, strong family history of CAD and currently describes having been diagnosed with lupus. Patient does suffer from acid reflux but currently not on any medications. Past Medical History Cardiac Medical History: Reports: Coronary Artery Disease, Hyperlipidema, Hypertension Denies: Congestive Heart Failure, Myocardial Infarction Pulmonary Medical History: Denies: Asthma, Bronchitis, Chronic Obstructive Pulmonary Disease (COPD), Pneumonia, Tuberculosis Neurological Medical History: Denies: Seizures Endocrine Medical History: Reports: Diabetes Mellitus Type 2 - on Lantus, she does not have a PCM Renal/ Medical History: Denies: End Stage Renal Disease GI Medical History: Denies: Cirrhosis, Gastroesophageal Reflux Disease Musculoskeltal Medical History: Denies: Arthritis Psychiatric Medical History: Denies: Bipolar Disorder, Depression Hematology: Denies: Anemia, Bleeding Tendencies Past Surgical History Past Surgical History: Reports: Cardiac Catheterization Social History Information Source: Patient Smoking Status: Never Smoker Frequency of Alcohol Use: None Hx Recreational Drug Use: No Drugs: None Hx Prescription Drug Abuse: No - Advance Directive Resuscitation Status: Full Code Family History Family History: Reviewed & Not Pertinent, CAD, CVA Parental Family History Reviewed: Yes Children Family History Reviewed: Yes Sibling(s) Family History Reviewed.: Yes Medication/Allergy Home Medications: Acyclovir [Acyclovir 400 mg Tablet] 400 mg PO Q12 03/06/19 Ergocalciferol (Vitamin D2) [Drisdol 50,000 Unit (1.25MG) Capsule] 50,000 unit PO .QWEEKLY 03/06/19 Folic Acid [Folvite 1 mg Tablet] 1 mg PO DAILY 03/06/19 Insulin Degludec/Liraglutide [Xultophy 100 Unit-3.6 mg/ml] ml SQ 03/06/19 Levocetirizine Dihydrochloride [Xyzal] 5 mg PO DAILY 03/06/19 Losartan/Hydrochlorothiazide [Losartan-Hctz 100-25 mg Tab] 1 each PO DAILY 03/06/19 Meloxicam [Mobic 7.5 mg Tablet] 7.5 mg PO Q12 03/06/19 Methotrexate Sodium [Rheumatrex 2.5 mg Tablet] mg PO 03/06/19 Omeprazole 20 mg PO DAILY #30 tablet.dr 03/06/19 Ranitidine HCl 150 mg PO BID 03/06/19 Tramadol HCl [Ultram 50 mg Tablet] 50 mg PO Q12HP PRN 03/06/19 Allergies/Adverse Reactions: cephalexin [From Keflex] Allergy (Verified 09/23/18 17:55) Penicillins Allergy (Verified 11/02/17 17:07) onion Allergy (Uncoded 11/02/17 17:07) Review of Systems Review of Systems: Please see history of present illness and past medical history as wall. Constitutional: No fever or chills reported. Head : No recent chronic headaches, recent head injury. Eyes: No recent eye pain, diplopia, redness, discharge, acute visual changes. Ears: No recent chronic ear pain, acute hearing loss, ear discharge. Oral cavity: No recent ulcerations, bleeding, oral cavity discomfort. Neck: No recent acute neck pain reported. Hematologic: No recent easy bruising or bleeding. Lymphatic: No recent lymph node enlargement reported. Cardiovascular system review: See history of present illness. Respiratory system review: No hemoptysis or blood clots in the lungs reported. Mild Shortness of breath on exertion Gastrointestinal system review: Negative for any recent acute hematemesis, melena. Genitourinary system review: No recent acute or chronic hematuria, flank pain, UTI etc. reported. Symptoms of gastroesophageal reflux. Skin system review: Negative for any recent abnormal bruising, no rash, no pruritus reported. Neurologic: No prior history of strokes, mini strokes, seizure disorder. Psychologic: No history of major psychosis or major depression reported. Musculoskeletal: Minor aches and pains reported. No acute joint swelling reported. Endocrine: No recent polyuria, polydipsia, recent heat or cold intolerance. Patient describes symptoms indicative of sleep apnea syndrome. Physical Exam Vital Signs: Temp Pulse Resp BP Pulse Ox 98.0 F 25 H 132/79 H 100 03/06/19 18:14 03/06/19 18:00 03/06/19 18:14 03/06/19 18:00 Exam: GENERAL: well-nourished and in no acute distress. Alert and oriented x3 HEAD: Atraumatic, normocephalic. EYES: EDUARDO, sclera anicteric, conjunctiva are normal. ENT: Moist mucous membranes. No oral ulcerations or bleeding gums noted. No obvious ear, nose or throat abnormalities noted. NECK: supple without lymphadenopathy. Trachea is central. No cervical or axillary lymphadenopathy noted. Carotids are 2+, JVD WNL LUNGS: Breath sounds clear bilaterally. No wheezes rales or rhonchi noted. No significant dullness noted on percussion. CHEST: Palpation of the chest wall shows mild central chest wall tenderness. 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 ABDOMEN: Soft, no significant tenderness appreciated, normoactive bowel sounds. No guarding, no rebound. No rigidity noted . No masses appreciated. EXTREMITIES: Pedal pulses are 1-2+, no calf tenderness noted. No clubbing or cyanosis. negative pedal edema noted NEUROLOGICAL: Focused neurological exam showed no significant neurologic d eficit. Normal speech, no focal weakness appreciated. PSYCH: Normal mood, normal affect. Judgment and insight within normal limits. SKIN: No significant ecchymosis, skin is noted to be warm. MUSCULOSKELETAL EXAM: No significant acute joint swelling noted. Results Laboratory Results: 03/06/19 12:16 03/06/19 12:16 03/06/19 03/06/19 03/06/19 12:16 12:16 16:00 Creatine Kinase 48 CK-MB (CK-2) 0.31 Troponin I < 0.012 < 0.012 EKG Comments: Sinus rhythm, no acute ST-T wave changes are noted Impressions: Chest X-Ray 03/06/19 11:52 IMPRESSION: NO ACUTE RADIOGRAPHIC FINDING IN THE CHEST. Chest CT 03/06/19 16:46 IMPRESSION: NO SIGNIFICANT FINDING ON NON-CONTRASTED CHEST CT. Assessment & Plan - Diagnosis (1) Chest pain Qualifiers: Chest pain type: unspecified Qualified Code(s): R07.9 - Chest pain, unspecified Is this a current diagnosis for this admission?: Yes (2) Hypertension Qualifiers: Hypertension type: essential hypertension Qualified Code(s): I10 - Essential (primary) hypertension Is this a current diagnosis for this admission?: Yes (3) Hyperlipidemia Qualifiers: Hyperlipidemia type: unspecified Qualified Code(s): E78.5 - Hyperlipidemia, unspecified Is this a current diagnosis for this admission?: Yes (4) Obesity Qualifiers: Obesity type: unspecified obesity type Obesity classification: adult class 3 (BMI >= 40) Is this a current diagnosis for this admission?: Yes (5) Gastroesophageal reflux Qualifiers: Esophagitis presence: esophagitis presence not specified Qualified Code(s): K21.9 - Gastro-esophageal reflux disease without esophagitis Is this a current diagnosis for this admission?: Yes (6) Diabetes mellitus with hyperglycemia Qualifiers: Diabetes mellitus type: type 2 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 Patient does have some chest wall tenderness but does not really correlate with her symptoms. It was felt that further risk stratification is indicated. In this regard, I advised the ER physician to get a CT scan of the chest to look for coronary calcification. If significant coronary calcification is noted then patient should be admitted for for further evaluation as noted in my nuclear stress discussion. The nuclear stress test was technically very suboptimal and a decision could not be made just on that basis therefore a CT scan of the chest was ordered. This came back negative for any calcification. Patient has been chest pain-free, it was felt that patient be safe for discharge. I had a long discussion with the patient at bedside, various differential diagnosis was discussed. It seems patient would benefit from empiric treatment for gastroesophageal reflux. Gastroesophageal reflux: Start PPI. Patient given prescription by ER physician. Obesity: Patient encouraged and gradual weight loss. Diabetes: Patient advised in good control. Hypertension: Patient advised in good control. Sleep disorder: Patient advised and scheduling a sleep study. Patient will also benefit from sleep evaluation. She would like to have this performed. 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 Patient can follow-up with me for sleep apnea evaluation. - Time Time Spent: 30 to 50 Minutes Medications reviewed and adjusted accordingly: Yes Anticipated discharge: Home
== END 2019-03-06 18:15 | disposition home or self-care (01) ==
LOC: ER 11:28
DX: E11.65 Type 2 diabetes mellitus with hyperglycemia (principal); I10 Essential (primary) hypertension; E78.5 Hyperlipidemia, unspecified; K21.9 Gastro-esophageal reflux disease without esophagitis; R05 Cough; R06.02 Shortness of breath; E66.9 Obesity, unspecified; I25.10 Atherosclerotic heart disease of native coronary artery without angina pectoris; Z79.4 Long term (current) use of insulin; Z82.49 Family history of ischemic heart disease and other diseases of the circulatory system; Z79.899 Other long term (current) drug therapy
CPT/HCPCS: 36415; 71045; 71250; 80053; 82550; 82553; 84484; 85025; 93005; 93010; 99285

== ENCOUNTER → 2019-03-06 | Outpatient (CLI) | payer BC ==
[~2019-03-06] MED LIST: AMINOPHYLLINE INJ/PF 250 MG/10 ML SDV IV ONE; REGADENOSON INJ 0.4 MG/5 ML DISP.SYRIN IV ONE
--- NOTE | 2019-03-06 16:19 | DRAGON STRESS TEST REPORT ---
INTRAVENOUS LEXISCAN CARDIOLITE STRESS TEST USING SINGLE PHOTON EMMISION COMPUTERIZED TOMOGRAPHIC. DATE OF PROCEDURE: March 06, 2019, INDICATION : Dyspnea CARDIAC RISK FACTORS: Type 2 diabetes, hypertension RESTING EKG: Sinus rhythm without any baseline ST-T wave changes STRESS EKG: No significant ST segment changes noted with LexiScan bolus REASON FOR TERMINATION: Protocol. PROCEDURE REPORT: Baseline heart rate 96 beats per minute with blood pressure of 104/71. Patient had no significant complaints. Patient was bolused with Lexiscan 0.4 mg intravenously followed by saline bolus. Heart rate at 2 minutes post bolus 126 with a blood pressure of 126/98. 3 minutes post bolus heart rate 111 with blood pressure of 119/91. No significant EKG changes were noted. Patient had no significant complaints during the procedure or postprocedure. CONCLUSIONS: Normal EKG and hemodynamic response to IV LexiScan. NUCLEAR DATA: At rest the patient was given 15.96 millicuries of technetium 99 sestamibi injected intravenously. As per protocol rest gated SPECT images were obtained. On day of stress test, the patient was given intravenous LexiScan at a dose of 0.4 mg in 5 mL intravenously, followed by flush with normal saline. Subsequently the stress dose of 46.7 millicuries of technetium 99 sestamibi was injected intravenously. As per protocol stress gated images were obtained. NUCLEAR INTERPRETATION: Both raw and processed data were used for interpretation. Visual, qualitative, computer-generated quantitative data was used. There was good myocardial uptake of technetium compound. Marked increased breast attenuation artifact was noted. Motion artifact and other soft tissue attenuations were noted. Increased visceral uptake was noted. Camera used for nuclear imaging did not have attenuation correction. Marked breast attenuation artifact was noted which caused much difficulty in commenting on interpretation guarding perfusion of the anterior wall. No other definitive areas of transient or fixed perfusion defect or scars noted. EKG gated imaging showed LV EF cannot be accurately commented upon but felt to be mild to moderately depressed, rest and stress gated EF similar visually. T. I D. ratio was 1.18. Lung heart ratio noted to be within normal limits 0.22. No significant extracardiac and abnormal radiotracer activities were noted. RV free wall uptake was noted to be WNL. LVH noted. IMPRESSION: Also refer to comments under nuclear interpretation. Also test results needs to be interpreted in the context of pretest probability. Study was technically difficult. 1. Anterior wall perfusion cannot be correctly commented upon because of very significant amount of breast attenuation. Cannot rule out ischemia or scar. 2. There is no other areas definitive scintigraphic evidence of myocardial infarction/scar. 3. EKG gated imaging shows left ventricular ejection fraction to be mild to moderately depressed. 4. Clinical correlation requested as worse disease and or balanced ischemia could be missed. In approximately 10% of the cases Lexiscan may not cause adequate vasodilatory stress. RECOMMENDATIONS: Clinical correlation is strongly recommended in this patient due to suboptimal study quality. Would recommend these follow-up testing, Stress echo, cardiac CTA, MRI stress imaging. May also consider heart catheterization if significant symptoms. Aggressive risk factor modification and medical management. Further evaluation may be needed if continued symptoms or other high risk indicators are noted on clinical evaluation. Close cardiology follow-up is also recommended. Clinical correlation with echocardiogram derived ejection fraction. Inability to exercise by itself can lead to increased cardiovascular event risks. Consider cardiology consultation and or follow-up if clinically indicated. I am available for cardiology evaluation and consultation if requested by the insecticide sprayer, unless patient already has a director of field coordination. Dr. Mian Dick. MRCP Board certified in cardiology and sleep medicine. Board certified in nuclear cardiology, adult echocardiography. JILLIAN
== END ==
LOC: RAD 07:57
PROVIDERS: ATTEND Internal Medicine Cardiovascular Disease
DX: R06.00 Dyspnea, unspecified (principal); I10 Essential (primary) hypertension; E11.9 Type 2 diabetes mellitus without complications
CPT/HCPCS: 93017; 78452; A9500; J2785; J0280; Q9969

== ENCOUNTER 2019-04-01 08:04 | Day surgery (SDC) | payer BC ==
[~2019-04-01 08:04] MED LIST changes: -AMINOPHYLLINE INJ/PF 250 MG/10 ML SDV IV ONE; +ASPIRIN 325 MG TABLET ONE; +DIAZEPAM 5 MG TABLET ONE; +DIPHENHYDRAMINE HCL 25 MG CAPSULE ONE; +HEPARIN SODIUM,PORCINE/NS/PF 2,000 UNIT/1,000 ML RTUINJ IV ONE; +LIDOCAINE 1% INJ-PF (10 MG/ML) 30 ML SDV ONE; +RADIAL COCKTAIL SYRINGE 10 ML IV PRN; -REGADENOSON INJ 0.4 MG/5 ML DISP.SYRIN IV ONE
[2019-04-01] MEDS ORDERED: FENTANYL CITRATE INJ/PF 100 MCG/2 ML AMPUL ONE ×2 (08:12→09:04)
[2019-04-01] MEDS ORDERED: MIDAZOLAM HCL INJ 5 MG/1 ML VIAL ONE (08:12)
[2019-04-01] MEDS ORDERED: HEPARIN SOD (PORCINE) 1,000 UNIT/ML 10 ML VIAL ONE (08:13)
[2019-04-01] MEDS ORDERED: NITROGLYCERIN/D5W 50 MG/250 ML RTUINJ IV ONE (09:09)
--- NOTE | 2019-04-01 09:36 | Operative Report ---
Operative Report DATE OF SURGERY: 04/01/19 PREOPERATIVE DIAGNOSIS: Chest pain nondiagnostic stress test POSTOPERATIVE DIAGNOSIS: Diffuse noncritical coronary artery disease OPERATION: Radial approach left heart catheterization coronary angiography left ventriculography SURGEON: EVERARDO KEVIN ANESTHESIA: Moderate Sedation PROCEDURE: After informed consent was obtained the patient was brought to the cardiac catheterization lab and the right wrist was prepared in usual sterile and draped manner. Hemodynamic access was gained using micropuncture technique and the patient was anticoagulated with heparin. An intra-arterial cocktail of verapamil and lidocaine was administered. Selective coronary angiography was performed with a [place] catheter. This was exchanged with pigtail catheter and left ventriculography was performed in standard SEGOVIA projection. The patient left the Cardiac Catheterization Lab in stable condition, with intact distal pulses and no chest pain or other complications from the procedure. Conscious sedation was initiated, monitored, and maintained during the procedure with the start time of [] and a completion time of 924 for a total procedure time of 40 minutes. A total of 1 milligrams of Versed and 150 mcg of fentanyl were used for conscious sedation. HEMODYNAMIC DATA: [Left ventricular pressure to beginning the case is 191/15 post ventriculography LV pressure is 142/ over 17 aortic pressure on pullback is 142/95 there is no gradient across the aortic valve] CORONARY ANATOMY: [] ANGIOGRAPHY: [] VENTRICULOGRAPHY: Ventriculography is performed in the SEGOVIA projection and demonstrates [left ventriculography is performed in standard SEGOVIA projection this demonstrates normal regional wall motion normal ejection fraction visually ejection fraction is in the 55 to 60% range] . CORONARY ANGIOGRAPHY: Coronary angiography demonstrates small caliber somewhat diffusely diseased coronaries in all vascular distributions LEFT MAIN: [Left main is normal] LEFT ANTERIOR DESCENDING: The left anterior descending is small caliber and diffusely diseased throughout with 40 to 60% narrowings throughout its course the diffuse nature of disease makes angiographic visualization and characterization somewhat inaccurate CIRCUMFLEX CORONARY: Circumflex gives rise to obtuse marginal branch which is bifurcating no critical or focal lesions are seen RIGHT CORONARY ARTERY: The right coronary artery is a dominant vessel supplying the PDA and posterolateral branches once again there are luminal leg irregularities seen throughout the course of this vessel with a 30 to 40% stenosis again the concentric nature of disease may lead to significant underestimation of the severity of disease present IMPRESSION: [ 1. Preserved left ventricular systolic function 2. Hypertensive heart disease 3. No evidence of significant valvular disease 4. Diffuse concentric atherosclerotic coronary disease in all vascular distributions without focal stenosis Recommendations: Maximal risk factor modification and medical therapy CC Dr. Driver]
[2019-04-01 13:05] VITALS: BP 120/82
[2019-04-02] MEDS ORDERED: NORMAL SALINE 1000 ML 1,000 ML IV PRN (05:00)
[2019-04-02] MEDS ORDERED: DIPHENHYDRAMINE HCL 25 MG CAPSULE PO PRN (05:00)
[2019-04-02] MEDS ORDERED: DIAZEPAM 5 MG TABLET PO PRN (05:00)
[2019-04-02] MEDS ORDERED: ASPIRIN 325 MG TABLET PO PRN (05:00)
== END 2019-04-01 12:30 | disposition home or self-care (01) ==
LOC: CCL 08:04
PROVIDERS: ATTEND Internal Medicine Cardiovascular Disease
DX: R07.9 Chest pain, unspecified (principal); I25.10 Atherosclerotic heart disease of native coronary artery without angina pectoris; Z88.0 Allergy status to penicillin; Z88.5 Allergy status to narcotic agent; Z79.899 Other long term (current) drug therapy; R06.00 Dyspnea, unspecified; R00.0 Tachycardia, unspecified
CPT/HCPCS: 82962; 93458; J3010; J1644 ×2; J3490 ×5; J2250

== ENCOUNTER 2019-04-22 10:23 | Observation (INO) | payer BC ==
--- NOTE | 2019-04-22 10:52 | ER Document Report ---
ED General - General Chief Complaint: Chest Pain Stated Complaint: CHEST PAIN Time Seen by Provider: 04/22/19 10:36 Primary Care Provider: EVERARDO LIZ [ACTIVE STAFF] - Follow up as needed Notes: Patient is a 38-year-old female that presents to the emergency department for chief complaint of chest pain. 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 She did receive aspirin and nitroglycerin by EMS. She has a history of small vessel coronary disease, had a left heart cath performed about 1 month ago, and there was intervention performed at that time. She also states during this episode her fingers felt tingly and turned a bluish hue, which has since resolved as well. She does have underlying lupus and is currently on methotrexate for that. She also states she is been getting worked up for possible ulcer disease that she is had some epigastric abdominal pain, she intermittently takes Mobic for arthritic and myalgias pains from her lupus. Past Medical History: Hypertension, lupus, diabetes, CAD Past Surgical History: Left heart catheterization, kidney stone surgery Social History: Denies tobacco, alcohol or drug use. Family History: Reviewed and noncontributory for presenting illness Allergies: Reviewed, see documented allergy list. REVIEW OF SYSTEMS: Other than noted above, the 12 point review of systems was reviewed with the patient and were negative, all pertinent findings are included in the HPI. PHYSICAL EXAMINATION: Vital signs reviewed, nursing noted reviewed. GENERAL: Obese female, no acute distress. HEAD: Atraumatic, normocephalic. EYES: Eyes appear normal, extraocular movements intact, sclera anicteric, conjunctiva are normal. ENT: nares patent, oropharynx clear without exudates. Moist mucous membranes. NECK: Normal range of motion, supple without lymphadenopathy LUNGS: Breath sounds clear to auscultation bilaterally and equal. No wheezes rales or rhonchi. HEART: Regular rate and rhythm without murmurs ABDOMEN: Soft, obese, nontender, normoactive bowel sounds. No rebound, guarding, or rigidity. No masses appreciated. EXTREMITIES: Nontender, good range of motion, no pitting or edema. NEUROLOGICAL: No focal neurological deficits. Moves all extremities spontaneously Motor and sensory grossly intact on exam. PSYCH: Normal mood, normal affect. SKIN: Warm, Dry, normal turgor, no rashes or lesions noted on exposed skin TRAVEL OUTSIDE OF THE [place] IN LAST 30 DAYS: No - Related Data Allergies/Adverse Reactions: cephalexin [From Keflex] Allergy (Intermediate, Verified 04/01/19 06:52) HIVED, BUMPS, RED SKIN Penicillins Allergy (Intermediate, Verified 04/01/19 06:52) HIVES, BUMPS, RED SKIN onion Allergy (Severe, Uncoded 04/01/19 06:52) HIVES, ITCHING, RED SKIN Past Medical History - Social History Smoking Status: Never Smoker Frequency of alcohol use: None Drug Abuse: None Family History: Reviewed & Not Pertinent, CAD, CVA Patient has suicidal ideation: No Patient has homicidal ideation: No - Past Medical History Cardiac Medical History: Reports: Hx Coronary Artery Disease, Hx Hypercholesterolemia, Hx Hypertension Denies: Hx Congestive Heart Failure, Hx Heart Attack Pulmonary Medical History: Denies: Hx Asthma, Hx Bronchitis, Hx COPD, Hx Pneumonia, Hx Tuberculosis Neurological Medical History: Denies: Hx Cerebrovascular Accident, Hx Seizures Endocrine Medical History: Reports: Hx Diabetes Mellitus Type 2 Renal/ Medical History: Reports: Hx Kidney Stones. Denies: Hx End Stage Renal Disease, Hx Peritoneal Dialysis GI Medical History: Denies: Hx Cirrhosis, Hx Gastroesophageal Reflux Disease, Hx Ulcer Musculoskeletal Medical History: Denies Hx Arthritis, Denies Hx Multiple Sclerosis Psychiatric Medical History: Denies: Hx Bipolar Disorder, Hx Depression, Hx Schizophrenia Past Surgical History: Reports: Hx Cardiac Catheterization, Hx Genitourinary Surgery - vaginal surgery age 20, Hx Gynecologic Surgery, Hx Kidney (Renal Surgery) - kidney stone removal - Immunizations Hx Diphtheria, Pertussis, Tetanus Vaccination: No Hx Pneumococcal Vaccination: 09/10/13 Physical Exam - Vital signs Vitals: Resp BP Pulse Ox 25 H 129/90 H 100 04/22/19 10:38 04/22/19 10:38 04/22/19 10:38 Course - Re-evaluation Re-evalutation: Patient seen and examined vital signs reviewed. Laboratory data and/or imaging were ordered as appropriate for the patient's presenting symptoms and complaint, with consideration of any critical or life threatening conditions that may be associated with their obtained history and exam as noted above. Patient was treated with GI cocktail, received aspirin and nitroglycerin by EMS. Results were reviewed when available and demonstrated negative work-up, including negative troponin, and unchanged EKG from prior. Repeat troponin ordered. The patient was re-evaluated and was stable Evaluation was most consistent with chest pain, I do not feel this is likely cardiac in nature, at least in regards to ACS, likely GI, given patient's been having reflux, and history of abdominal discomfort, she recently a heart cath, does not demonstrate any critical lesions, I did review the report from the heart cath, she does have diffuse small vessel disease, that is being monitored by cardiology. While in the ED the patient did have a few episodes of intermittent chest pain, did place a Nitropaste on her, her Contract Runner report, was abnormal, do want to rule out ACS after discussing this case with radiology and the hospitalist team, for serial troponin testing patient was agreeable with this plan of care. And to optimize medical management. I discussed the case with Dr. Dick and with Shelby Canela CNP *Note is created using voice recognition software and may contain spelling, syntax or grammatical errors. Laboratory 04/22/19 04/22/19 04/22/19 10:39 10:39 10:39 WBC 9.0 RBC 4.28 Hgb 12.2 Hct 37.3 MCV 87 MCH 28.4 MCHC 32.6 RDW 14.0 Plt Count 353 Seg Neutrophils % 66.4 Lymphocytes % 25.5 Monocytes % 6.2 Eosinophils % 0.7 Basophils % 1.2 Absolute Neutrophils 6.0 Absolute Lymphocytes 2.3 Absolute Monocytes 0.6 Absolute Eosinophils 0.1 Absolute Basophils 0.1 Sodium 136.4 L Potassium 4.3 Chloride 100 Carbon Dioxide 29 Anion Gap 7 BUN 21 H Creatinine 0.76 Est GFR ( Amer) > 60 Est GFR (Non-Af Amer) > 60 Glucose 312 H Calcium 8.7 Total Bilirubin 0.4 Direct Bilirubin 0.3 Neonat Total Bilirubin Not Reportable Neonat Direct Bilirubin Not Reportable Neonat Indirect Bili Not Reportable AST 50 H ALT 34 Alkaline Phosphatase 123 Troponin I < 0.012 Total Protein 7.3 Albumin 3.5 Chest X-Ray 04/22/19 10:50 IMPRESSION: No evidence of acute cardiopulmonary process. - Vital Signs Vital signs: Temp Pulse Resp BP Pulse Ox 98.2 F 89 21 H 130/88 H 100 04/22/19 10:40 04/22/19 10:40 04/22/19 11:01 04/22/19 11:01 04/22/19 11:01 - Laboratory Result Diagrams: 04/22/19 10:39 04/22/19 10:39 Laboratory results interpreted by me: 04/22/19 10:39 Sodium 136.4 L BUN 21 H Glucose 312 H AST 50 H - EKG Interpretation by Me Additional EKG results interpreted by me: EKG demonstrates sinus rhythm with a ventricular rate of 92 bpm, normal axis, normal intervals, no evidence of acute ischemia in this EKG, this is compared with a prior EKG from 03/06/2019, without significant change. EKG demonstrates sinus rhythm with a ventricular rate of 82 bpm, left axis deviation, QTC 450 ms, T wave inversion noted in lead III, no ST elevation, compared to prior EKG without change. Discharge - Discharge Clinical Impression: Chest pain Qualifiers: Chest pain type: unspecified Qualified Code(s): R07.9 - Chest pain, unspecified Condition: Stable Disposition: ADMITTED OBSERVATION Admitting Provider: Tayla (Hospitalist) - [facility] Unit Admitted: Telemetry Referrals: EVERARDO LIZ [ACTIVE STAFF] - Follow up as needed
[2019-04-22 11:14] LABS: ABSOLUTE BASOPHILS # (AUTO) 0.1 10^3/uL (0.0-0.2); ABSOLUTE EOSINOPHILS # (AUTO) 0.1 10^3/uL (0.0-0.6); ABSOLUTE LYMPHOCYTES (AUTO) 2.3 10^3/uL (0.5-4.7); ABSOLUTE MONOCYTES (AUTO) 0.6 10^3/uL (0.1-1.4); BASOPHILS % (AUTO) 1.2 % (0-2); EOSINOPHILS % (AUTO) 0.7 % (0-6); HEMATOCRIT 37.3 % (36.0-47.0); HEMOGLOBIN 12.2 g/dL (12.0-15.5); LYMPHOCYTES % (AUTO) 25.5 % (13-45); MEAN CORPUSCULAR HEMOGLOBIN 28.4 pg (27.0-33.4); MEAN CORPUSCULAR HGB CONC 32.6 g/dL (32.0-36.0); MEAN CORPUSCULAR VOLUME 87 fl (80-97); MONOCYTES % (AUTO) 6.2 % (3-13); PLATELET COUNT 353 10^3/uL (150-450); RED BLOOD COUNT 4.28 10^6/uL (3.72-5.28); SEGMENTED NEUTROPHILS % (AUTO) 66.4 % (42-78); TOTAL CELLS COUNTED % (AUTO) 100 %
[2019-04-22 11:17] LABS: ALANINE AMINOTRANSFERASE 34 U/L (9-52); ALBUMIN 3.5 g/dL (3.5-5.0); ALKALINE PHOSPHATASE 123 U/L (38-126); ANION GAP 7 (5-19); ASPARTATE AMINO TRANSFERASE 50 U/L (14-36); BILIRUBIN,DIRECT 0.3 mg/dL (0.0-0.4); BILIRUBIN,TOTAL 0.4 mg/dL (0.2-1.3); BLOOD UREA NITROGEN 21 mg/dL (7-20); CALCIUM 8.7 mg/dL (8.4-10.2); CARBON DIOXIDE 29 mmol/L (22-30); CHLORIDE 100 mmol/L (98-107); GLUCOSE 312 mg/dL (75-110); POTASSIUM 4.3 mmol/L (3.6-5.0); SODIUM 136.4 mmol/L (137-145); TOTAL PROTEIN 7.3 g/dL (6.3-8.2)
--- NOTE | 2019-04-22 11:55 | RADIOLOGY REPORT (SQ) ---
EXAM DESCRIPTION: CHEST SINGLE VIEW COMPLETED DATE/TIME: 04/22/2019 11:42 am REASON FOR STUDY: chest pain COMPARISON: 03/06/2019 EXAM PARAMETERS: NUMBER OF VIEWS: One view. TECHNIQUE: Single frontal radiographic view of the chest acquired. RADIATION DOSE: NA LIMITATIONS: None. FINDINGS: LUNGS AND PLEURA: Low lung volumes without opacities, masses or pneumothorax. No pleural e ffusion. MEDIASTINUM AND HILAR STRUCTURES: No masses. Contour normal. HEART AND VASCULAR STRUCTURES: Heart normal in size. Normal vasculature. BONES: No acute findings. HARDWARE: None in the chest. OTHER: No other significant finding. IMPRESSION: No evidence of acute cardiopulmonary process. TECHNICAL DOCUMENTATION: JOB ID: [id number] [employer]- All Rights Reserved Reading location - IP/workstation name: [email or web address]
[2019-04-22] MEDS ORDERED: MAG HYDROX/AL HYDROX/SIMETH SUSP 30 ML UDCUP PO ONE (12:18)
[2019-04-22] MEDS ORDERED: METOCLOPRAMIDE HCL ORAL SOLN 10 MG/10 ML UDCUP PO ONE (12:18)
[2019-04-22] MEDS ORDERED: LIDOCAINE 2% VISCOUS SOLN 20 ML UDCUP PO ONE (12:18)
[2019-04-22] MEDS ORDERED: NITROGLYCERIN 2% OINTMENT 1 GM PACKET TP ONE ×2 (14:04→14:06)
[2019-04-22] MEDS ORDERED: MAG HYDROX/AL HYDROX/SIMETH SUSP 30 ML UDCUP PO PRN (15:09)
[2019-04-22] MEDS ORDERED: ONDANSETRON HCL INJ/PF 4 MG/2 ML SDV IV PRN (15:09)
[2019-04-22] MEDS ORDERED: NITROGLYCERIN 0.4 MG/TAB 25 TAB/BOTTLE SL PRN (15:09)
[2019-04-22] MEDS ORDERED: ACETAMINOPHEN 325 MG TABLET PO PRN (15:09)
[2019-04-22] MEDS ORDERED: MELOXICAM 7.5 MG TABLET PO PRN (15:15)
[2019-04-22] MEDS ORDERED: TRAMADOL HCL 50 MG TABLET PO PRN (15:15)
[2019-04-22] MEDS ORDERED: GLUCAGON,HUMAN RECOMB 1 MG INJ IM PRN (15:17)
[2019-04-22] MEDS ORDERED: DEXTROSE 40% GEL 15 GM TUBE PO PRN ×2 (15:17)
[2019-04-22] MEDS ORDERED: DEXTROSE 50%-WATER 25 GM/50 ML DISP.SYRIN IV PRN ×2 (15:17)
[2019-04-22] MEDS: INSULIN LISPRO 100 UNIT/ML 3 ML VIAL SUBCUT SCH ×2 (16:22→21:35)
--- NOTE | 2019-04-22 16:25 | PDOC H&P ---
History of Present Illness Admission Date/PCP: 04/22/19 15:10 FRANNY LUZ MD Patient complains of: chest discomfort History of Present Illness: MEMO VEGA is a 38 year old female with a past medical history significant for lupus, DM 2, hypertension, hyperlipidemia, super morbid obesity, obesity hypoventilation syndrome, and recent cardiac catheterization (04/01/2019; diffuse small vessel disease without stentable lesions) who presented to the emergency department today with a complaint of substernal chest discomfort described as tightness, nonradiating, onset while at rest and exacerbated by movement (including movement of arms and repositioning in the bed) similar to her typical chest discomfort but increased in severity and lasting longer than is her normal. Patient reports she was recently started on Toprol by her bowling ball mold assembler (Dr. Driver) with first dose 7 days ago. Otherwise, there are no new medication adjustments. Evaluation in the emergency department is unremarkable with stable vital signs, benign chest x-ray, EKG showing NSR without ST segment or other acute changes, and an unremarkable laboratory evaluation including two negative troponins. ED provider spoke with Dr. Dick who recommended observation for serial trop onins. Dr. Dick has been consulted. At time of my assessment, patient reports continued discomfort though significantly improved from this morning. She was ambulatory to restroom on room air without increased discomfort or signs of distress. Patient interrupted exam to answer phone call from family member to request they bring her a "double cheese burger;" she is reminded to eat a cardiac/consistent carb diet. Past Medical History Cardiac Medical History: Reports: Coronary Artery Disease, Hyperlipidema, Hypertension Denies: Congestive Heart Failure, Myocardial Infarction Pulmonary Medical History: Reports: Other - Obesity hypoventilation syndrome. EENT Medical History: Reports: None Neurological Medical History: Denies: Ischemic CVA, Seizures Endocrine Medical History: Reports: Diabetes Mellitus Type 2, Obesity Renal/ Medical History: Denies: End Stage Renal Disease Malignancy Medical History: Reports: None GI Medical History: Denies: Cirrhosis, Gastroesophageal Reflux Disease Musculoskeltal Medical History: Denies: Arthritis Psychiatric Medical History: Denies: Bipolar Disorder, Depression Hematology: Denies: Anemia, Bleeding Tendencies Past Surgical History Past Surgical History: Reports: Cardiac Catheterization Social History Information Source: Patient Lives with: Family Smoking Status: Never Smoker Frequency of Alcohol Use: None Hx Recreational Drug Use: No Drugs: None Hx Prescription Drug Abuse: No - Advance Directive Resuscitation Status: Full Code Family History Family History: Reviewed & Not Pertinent, CAD, CVA Parental Family History Reviewed: Yes Children Family History Reviewed: Yes Sibling(s) Family History Reviewed.: Yes Medication/Allergy Home Medications: Acyclovir [Acyclovir 400 mg Tablet] 400 mg PO Q12 03/06/19 Ergocalciferol (Vitamin D2) [Drisdol 50,000 Unit (1.25MG) Capsule] 50,000 unit PO MO@1000 03/06/19 Folic Acid [Folvite 1 mg Tablet] 1 mg PO SUTUWETHFRSA@1000 03/06/19 Insulin Degludec/Liraglutide [Xultophy 100 Unit-3.6 mg/ml] 50 units SQ DAILY 03/06/19 Levocetirizine Dihydrochloride [Xyzal] 5 mg PO DAILY 03/06/19 Losartan/Hydrochlorothiazide [Losartan-Hctz 100-25 mg Tab] 1 each PO DAILY 03/06/19 Meloxicam [Mobic 7.5 mg Tablet] 7.5 mg PO Q12HP PRN 03/06/19 Methotrexate Sodium [Rheumatrex 2.5 mg Tablet] 2.5 mg PO MO@1000,1800 03/06/19 Tramadol HCl [Ultram 50 mg Tablet] 50 mg PO Q12HP PRN 03/06/19 Metoprolol Succinate [Toprol Xl 25 mg Tab.sr] 25 mg PO DAILY 04/22/19 Simvastatin [Zocor 40 mg Tablet] 40 mg PO QHS 04/22/19 Allergies/Adverse Reactions: cephalexin [From Keflex] Allergy (Intermediate, Verified 04/01/19 06:52) HIVED, BUMPS, RED SKIN Penicillins Allergy (Intermediate, Verified 04/01/19 06:52) HIVES, BUMPS, RED SKIN onion Allergy (Severe, Uncoded 04/01/19 06:52) HIVES, ITCHING, RED SKIN Review of Systems Constitutional: ABSENT: chills, fever(s), headache(s), weight gain, weight loss Eyes: ABSENT: visual disturbances Ears: ABSENT: hearing changes Cardiovascular: PRESENT: chest pain. ABSENT: dyspnea on exertion, edema, orthropnea, palpitations Respiratory: PRESENT: dyspnea. ABSENT: cough, hemoptysis Gastrointestinal: ABSENT: abdominal pain, constipation, diarrhea, hematemesis, hematochezia, nausea, vomiting Genitourinary: ABSENT: dysuria, hematuria Musculoskeletal: ABSENT: joint swelling Integumentary: ABSENT: rash, wounds Neurological: ABSENT: abnormal gait, abnormal speech, confusion, dizziness, focal weakness, syncope Psychiatric: ABSENT: anxiety, depression, homidical ideation, suicidal ideation Endocrine: ABSENT: cold intolerance, heat intolerance, polydipsia, polyuria Hematologic/Lymphatic: ABSENT: easy bleeding, easy bruising Physical Exam Vital Signs: Temp Pulse Resp BP Pulse Ox 98.2 F 89 21 H 130/88 H 100 04/22/19 10:40 04/22/19 10:40 04/22/19 11:01 04/22/19 11:01 04/22/19 11:01 Intake & Output 04/21/19 04/22/19 04/23/19 06:59 06:59 06:59 Weight 131.995 kg General appearance: PRESENT: no acute distress, cooperative, morbidly obese - Super, well-developed, well-nourished Head exam: PRESENT: atraumatic, normocephalic Eye exam: PRESENT: conjunctiva pink, EOMI, PERRLA. ABSENT: scleral icterus Ear exam: PRESENT: normal external ear exam Mouth exam: PRESENT: moist, tongue midline Neck exam: ABSENT: carotid bruit, JVD, lymphadenopathy, thyromegaly Respiratory exam: PRESENT: clear to auscultation aashish, decreased breath sounds - Bibasilar secondary to body habitus, positioning, and respiratory effort, symmetrical, unlabored. ABSENT: rales, rhonchi, wheezes Cardiovascular exam: PRESENT: RRR, +S1, +S2. ABSENT: diastolic murmur, rubs, systolic murmur Pulses: PRESENT: normal dorsalis pedis pul Vascular exam: PRESENT: normal capillary refill GI/Abdominal exam: PRESENT: normal bowel sounds, soft. ABSENT: distended, guarding, mass, organolmegaly, rebound, tenderness Rectal exam: PRESENT: deferred Extremities exam: PRESENT: full ROM. ABSENT: calf tenderness, clubbing, pedal edema Neurological exam: PRESENT: alert, awake, oriented to person, oriented to place, oriented to time, oriented to situation, CN II-XII grossly intact. ABSENT: motor sensory deficit Psychiatric exam: PRESENT: appropriate affect, normal mood. ABSENT: homicidal ideation, suicidal ideation Skin exam: PRESENT: dry, intact, warm. ABSENT: cyanosis, rash Results Laboratory Results: 04/22/19 10:39 04/22/19 10:39 04/22/19 04/22/19 10:39 10:39 WBC 9.0 RBC 4.28 Hgb 12.2 Hct 37.3 MCV 87 MCH 28.4 MCHC 32.6 RDW 14.0 Plt Count 353 Seg Neutrophils % 66.4 Lymphocytes % 25.5 Monocytes % 6.2 Eosinophils % 0.7 Basophils % 1.2 Absolute Neutrophils 6.0 Absolute Lymphocytes 2.3 Absolute Monocytes 0.6 Absolute Eosinophils 0.1 Absolute Basophils 0.1 Sodium 136.4 L Potassium 4.3 Chloride 100 Carbon Dioxide 29 Anion Gap 7 BUN 21 H Creatinine 0.76 Est GFR ( Amer) > 60 Est GFR (Non-Af Amer) > 60 Glucose 312 H Calcium 8.7 Total Bilirubin 0.4 AST 50 H ALT 34 Alkaline Phosphatase 123 Total Protein 7.3 Albumin 3.5 04/22/19 04/22/19 10:39 14:41 Troponin I < 0.012 < 0.012 Impressions: Chest X-Ray 04/22/19 10:50 IMPRESSION: No evidence of acute cardiopulmonary process. Assessment and Plan - Diagnosis (1) Chest pain Qualifiers: Chest pain type: unspecified Qualified Code(s): R07.9 - Chest pain, unspecified Is this a current diagnosis for this admission?: Yes Plan: Patient is admitted to the medical floor and continuous cardiac telemetry. We will continue to trend troponins. Have resumed her outpatient regiment of Toprol and losartan/HCTZ Continue home dose statin Start daily aspirin therapy. Cardiac diet Dr. 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 May use home supplied insulin once verified by pharmacy. Accu-Cheks before meals and at bedtime with sliding scale insulin. Registered dietitian and clinical educator consulted. (3) Hyperlipidemia Qualifiers: Hyperlipidemia type: unspecified Qualified Code(s): E78.5 - Hyperlipidemia, unspecified Is this a current diagnosis for this admission?: Yes Plan: Cardiac diet. Continue home dose statin. (4) Hypertension Qualifiers: Hypertension type: essential hypertension Qualified Code(s): I10 - Essential (primary) hypertension Is this a current diagnosis for this admission?: Yes Plan: Cardiac diet. Antihypertensives as above. - Time Time Spent with patient: 35 or more minutes Medications reviewed and adjusted accordingly: Yes Anticipated discharge: Home Within: within 24 hours
--- NOTE | 2019-04-22 19:02 | EKG REPORT ---
SEVERITY:- ABNORMAL ECG - SINUS RHYTHM LEFT VENTRICULAR HYPERTROPHY BORDERLINE T ABNORMALITIES, INFERIOR LEADS : Confirmed by: Joe Drake MD 22-Apr-2019 19:02:03
--- NOTE | 2019-04-22 19:03 | EKG REPORT ---
SEVERITY:- ABNORMAL ECG - SINUS RHYTHM LEFT VENTRICULAR HYPERTROPHY : Confirmed by: Joe Drake MD 22-Apr-2019 19:02:18
[2019-04-22] MEDS: RANOLAZINE 500 MG TAB.SR.12H PO SCH (21:34)
[2019-04-22] MEDS ORDERED: ATORVASTATIN CALCIUM 80 MG TABLET PO SCH (22:00)
[2019-04-22] MEDS ORDERED: SIMVASTATIN 40 MG TABLET PO SCH (22:00)
[2019-04-22] MEDS ORDERED: ATORVASTATIN CALCIUM 40 MG TABLET PO SCH (22:00)
--- NOTE | 2019-04-22 23:59 | PDOC PROGRESS REPORT ---
Subjective Progress Note for:: 04/22/19 Subjective:: Patient presents with chest pain. She was seen by me in the month of February following a stress test which was scheduled by Dr. Driver. Subsequently she had a heart catheterization which was noted to show basically mild to moderate disease but without any critical stenosis. Patient today again was admitted with chest pain. So far cardiac enzymes and EKGs has been negative. Patient normally follows up with Dr. Driver who is a reconciliation clerk with [facility]. Patient also has [employer] insurance which is not accepted at my office. Reason For Visit: CHEST PAIN Physical Exam Vital Signs: Temp Pulse Resp BP Pulse Ox 97.3 F 102 H 19 144/85 H 100 04/22/19 18:09 04/22/19 19:00 04/22/19 18:09 04/22/19 18:09 04/22/19 18:09 Intake & Output 04/21/19 04/22/19 04/23/19 06:59 06:59 06:59 Weight 131.995 kg Exam: GENERAL: well-nourished and in no acute distress. Alert and oriented x3 HEAD: Atraumatic, normocephalic. EYES: EDUARDO, sclera anicteric, conjunctiva are normal. ENT: Moist mucous membranes. No oral ulcerations or bleeding gums noted. No obvious ear, nose or throat abnormalities noted. NECK: supple without lymphadenopathy. Trachea is central. No cervical or axillary lymphadenopathy noted. Carotids are 2+, JVD WNL LUNGS: Breath sounds clear bilaterally. No wheezes rales or rhonchi noted. No significant dullness noted on percussion. CHEST: Palpation of the chest wall shows mild chest wall tenderness. HEART: [place] OUTREACH MANAGER, No PSH, 1/6 JAIME aortic area, 1/6 barragan systolic murmur mitral a meeta, no rubs, no gallops. ABDOMEN: Soft, no significant tenderness appreciated, normoactive bowel sounds. No guarding, no rebound. No rigidity noted . No masses appreciated. EXTREMITIES: Pedal pulses are 1-2+, no calf tenderness noted. No clubbing or cyanosis. negative pedal edema noted NEUROLOGICAL: Focused neurological exam showed no significant neurologic deficit. Normal speech, no focal weakness appreciated. PSYCH: Normal mood, normal affect. Judgment and insight within normal limits. SKIN: No significant ecchymosis, skin is noted to be warm. MUSCULOSKELETAL EXAM: No significant acute joint swelling noted. Results Laboratory Results: 04/22/19 10:39 04/22/19 10:39 04/22/19 04/22/19 10:39 10:39 WBC 9.0 RBC 4.28 Hgb 12.2 Hct 37.3 MCV 87 MCH 28.4 MCHC 32.6 RDW 14.0 Plt Count 353 Seg Neutrophils % 66.4 Lymphocytes % 25.5 Monocytes % 6.2 Eosinophils % 0.7 Basophils % 1.2 Absolute Neutrophils 6.0 Absolute Lymphocytes 2.3 Absolute Monocytes 0.6 Absolute Eosinophils 0.1 Absolute Basophils 0.1 Sodium 136.4 L Potassium 4.3 Chloride 100 Carbon Dioxide 29 Anion Gap 7 BUN 21 H Creatinine 0.76 Est GFR ( Amer) > 60 Est GFR (Non-Af Amer) > 60 Glucose 312 H Calcium 8.7 Total Bilirubin 0.4 AST 50 H ALT 34 Alkaline Phosphatase 123 Total Protein 7.3 Albumin 3.5 04/22/19 04/22/19 04/22/19 10:39 14:41 21:00 Troponin I < 0.012 < 0.012 < 0.012 EKG Comments: Sinus rhythm, no acute ST-T wave changes are noted. Impressions: Chest X-Ray 04/22/19 10:50 IMPRESSION: No evidence of acute cardiopulmonary process. Assessment & Plan - Diagnosis (1) Chest pain Qualifiers: Chest pain type: unspecified Qualified Code(s): R07.9 - Chest pain, unspecified Is this a current diagnosis for this admission?: Yes (2) Gastroesophageal reflux Qualifiers: Esophagitis presence: esophagitis presence not specified Qualified Code(s): K21.9 - Gastro-esophageal reflux disease without esophagitis Is this a current diagnosis for this admission?: Yes (3) Hypertension Qualifiers: Hypertension type: essential hypertension Qualified Code(s): I10 - Essential (primary) hypertension Is this a current diagnosis for this admission?: Yes (4) Diabetes mellitus with hyperglycemia Qualifiers: Diabetes mellitus type: type 2 Diabetes mellitus senior living insulin use: unspecified senior living insulin use status Qualified Code(s): E11.65 - Type 2 diabetes mellitus with hyperglycemia Is this a current diagnosis for this admission?: Yes - Notes Notes: Patient presents with chest pain with recent heart catheterization by Dr. Villanueva showing mild to moderate but diffuse CAD. So far cardiac enzymes are negative. At this point recommend optimization of medical management with hypotensive statin, Plavix therapy, ARB therapy, beta-santy therapy. I have added Ranexa. I have switched patient to atorvastatin. Patient would benefit from a MRI stress test or PET stress to determine significance of mild to moderate narrowing noted in the LAD territory. Feel this can be arranged by Dr. Driver as an outpatient. Will sign off. Please call Dr. Driver for further help if needed. - Time Time with patient: Greater than 35 minutes - More than 50% of the time spent coordinating care, discussing management plans with involved caregivers. Management plans discussed with involved personnels. Medical decision making was of moderate to high complexity, patient's has multiple comorbidities. Medications reviewed and adjusted accordingly: Yes
[2019-04-23 06:33] LABS: CHOLESTEROL 158.56 mg/dL (0-200); TRIGLYCERIDES 147 mg/dL (<150)
[2019-04-23 06:44] LABS: DIRECT LDL 104 mg/dL (<100)
[2019-04-23] MEDS: INSULIN LISPRO 100 UNIT/ML 3 ML VIAL SUBCUT SCH ×2 (08:44→11:47)
[2019-04-23] MEDS: RANOLAZINE 500 MG TAB.SR.12H PO SCH (09:38)
[2019-04-23] MEDS ORDERED: HYDROCHLOROTHIAZIDE 25 MG TABLET PO SCH (10:00)
[2019-04-23] MEDS ORDERED: ASPIRIN 81 MG TABLET, ENT COATED PO SCH (10:00)
[2019-04-23] MEDS ORDERED: METOPROLOL SUCCINATE 25 MG TAB.SR.24H PO SCH (10:00)
[2019-04-23] MEDS ORDERED: FOLIC ACID 1 MG TABLET PO SCH (10:00)
[2019-04-23] MEDS ORDERED: LOSARTAN POTASSIUM 50 MG TABLET PO SCH (10:00)
[2019-04-23] MEDS ORDERED: (PENDING PHARMACY ID) (Losartan/Hydrochlorothiazide [Losartan-Hctz 100-25 Mg Tab] 1 EACH) PO SCH (10:00)
[2019-04-23] MEDS ORDERED: CLOPIDOGREL BISULFATE 75 MG TABLET PO SCH (10:00)
[2019-04-23 12:17] VITALS: BP 116/77
[2019-04-28] MEDS ORDERED: METHOTREXATE SODIUM 2.5 MG TABLET PO SCH (10:00)
--- NOTE | 2019-04-28 16:37 | PDOC DISCHARGE SUMMARY ---
General - Admit/Disc Date/PCP Admission Date/Primary Care Provider: 04/22/19 15:10 FRANNY LUZ MD Discharge Date: 04/23/19 - Discharge Diagnosis (1) Chest pain Is this a current diagnosis for this admission?: Yes Summary: CXR and EKG are benign. Lipid panel is acceptable. A1C 11.7% Cardiac cath completed last month; no stentable lesions. Patient was admitted to the medical floor and continuous cardiac telemetry. Outpatient regiment of Toprol and losartan/HCTZ were continued. Cardiology was consulted adn recommended change to atorvastatin and addition of Plavix. He has also started the patient on Ranexa. Patient is discahrged home in stable condition. She is advised to continue medications as above. She is encouraged to improve glucose control; eat a cardiac/consistent carb diet. She is instructed to follow up with her PCP within 1 week and with her established bowling ball patcher as scheduled. (2) Diabetes mellitus with hyperglycemia Is this a current diagnosis for this admission?: Yes Summary: AiC 11% Encouraged dietary and medication compliance. (3) Hyperlipidemia Is this a current diagnosis for this admission?: Yes Summary: Cardiac diet. start atorvastatin. (4) Hypertension Is this a current diagnosis for this admission?: Yes Summary: Cardiac diet. Antihypertensives as above. - Additional Information Resuscitation Status: Full Code Discharge Diet: Cardiac, Diabetic Discharge Activity: Activity As Tolerated Prescriptions: Aspirin [Ecotrin 81 mg EC Tablet] 81 mg PO DAILY #90 tabec Atorvastatin Calcium [Lipitor 80 mg Tablet] 80 mg PO QHS #30 tablet Clopidogrel Bisulfate [Plavix 75 mg Tablet] 75 mg PO DAILY #30 tablet Ranolazine [Ranexa 500 mg Tab.sr] 500 mg PO Q12 #60 tab.sr.12h Home Medications: Acyclovir [Acyclovir 400 mg Tablet] 400 mg PO Q12 03/06/19 Ergocalciferol (Vitamin D2) [Drisdol 50,000 unit (1.25MG) Capsule] 50,000 unit PO MO@1000 03/06/19 Folic Acid [Folvite 1 mg Tablet] 1 mg PO SUTUWETHFRSA@1000 03/06/19 Insulin Degludec/Liraglutide [Xultophy 100 Unit-3.6MG/ml Pen] 50 units SQ DAILY 03/06/19 Levocetirizine Dihydrochloride [Xyzal] 5 mg PO DAILY 03/06/19 Losartan/Hydrochlorothiazide [Losartan-Hctz 100-25 mg Tab] 1 each PO DAILY 03/06/19 Meloxicam [Mobic 7.5 mg Tablet] 7.5 mg PO Q12HP PRN 03/06/19 Methotrexate Sodium [Rheumatrex 2.5 mg Tablet] 2.5 mg PO MO@1000,1800 03/06/19 Tramadol HCl [Ultram 50 mg Tablet] 50 mg PO Q12HP PRN 03/06/19 Metoprolol Succinate [Toprol Xl 25 mg Tab.sr] 25 mg PO DAILY 04/22/19 Acetaminophen [Tylenol 325 mg Tablet] 650 mg PO Q4HP PRN tablet 04/23/19 Aspirin [Ecotrin 81 mg EC Tablet] 81 mg PO DAILY #90 tabec 04/23/19 Atorvastatin Calcium [Lipitor 80 mg Tablet] 80 mg PO QHS #30 tablet 04/23/19 Clopidogrel Bisulfate [Plavix 75 mg Tablet] 75 mg PO DAILY #30 tablet 04/23/19 Ranolazine [Ranexa 500 mg Tab.sr] 500 mg PO Q12 #60 tab.sr.12h 04/23/19 History of Present Illness History of Present Illness: MEMO VEGA is a 38 year old female with a past medical history significant for lupus, DM 2, hypertension, hyperlipidemia, super morbid obesity, obesity hypoventilation syndrome, and recent cardiac catheterization (04/01/2019; diffuse small vessel disease without stentable lesions) who presented to the emergency department today with a complaint of substernal chest discomfort lizett cribed as tightness, nonradiating, onset while at rest and exacerbated by movement (including movement of arms and repositioning in the bed) similar to her typical chest discomfort but increased in severity and lasting longer than is her normal. Patient reports she was recently started on Toprol by her bowling ball patcher (Dr. Driver) with first dose 7 days ago. Otherwise, there are no new medication adjustments. Evaluation in the emergency department is unremarkable with stable vital signs, benign chest x-ray, EKG showing NSR without ST segment or other acute changes, and an unremarkable laboratory evaluation including two negative troponins. ED provider spoke with Dr. Dick who recommended observation for serial troponins. Dr. Dick has been consulted. At time of my assessment, patient reports continued discomfort though significantly improved from this morning. She was ambulatory to restroom on room air without increased discomfort or signs of distress. Patient interrupted exam to answer phone call from family member to request they bring her a "double cheese burger;" she is reminded to eat a cardiac/consistent carb diet. Physical Exam Vital Signs: Temp Pulse Resp BP Pulse Ox 97.5 F 95 17 142/91 H 100 04/23/19 08:38 04/23/19 08:38 04/23/19 08:38 04/23/19 08:38 04/23/19 08:38 Intake & Output 04/22/19 04/23/19 04/24/19 06:59 06:59 06:59 Intake Total 700 Balance 700 Weight 132.1 kg General appearance: PRESENT: no acute distress, cooperative, morbidly obese, well-developed, well-nourished Head exam: PRESENT: atraumatic, normocephalic Eye exam: PRESENT: conjunctiva pink, EOMI, PERRLA. ABSENT: scleral icterus Ear exam: PRESENT: normal external ear exam Mouth exam: PRESENT: moist, tongue midline Neck exam: ABSENT: carotid bruit, JVD, lymphadenopathy, thyromegaly Respiratory exam: PRESENT: clear to auscultation aashish, symmetrical, unlabored. ABSENT: rales, rhonchi, wheezes Cardiovascular exam: PRESENT: RRR, +S1, +S2. ABSENT: diastolic murmur, rubs, systolic murmur Pulses: PRESENT: normal dorsalis pedis pul Vascular exam: PRESENT: normal capillary refill GI/Abdominal exam: PRESENT: normal bowel sounds, soft. ABSENT: distended, guarding, mass, organolmegaly, rebound, tenderness Rectal exam: PRESENT: deferred Extremities exam: PRESENT: full ROM. ABSENT: calf tenderness, clubbing, pedal edema Neurological exam: PRESENT: alert, awake, oriented to person, oriented to place, oriented to time, oriented to situation, CN II-XII grossly intact. ABSENT: motor sensory deficit Psychiatric exam: PRESENT: anxious, normal mood. ABSENT: homicidal ideation, suicidal ideation Skin exam: PRESENT: dry, intact, warm. ABSENT: cyanosis, rash Results Laboratory Results: 04/22/19 10:39 04/22/19 10:39 04/23/19 05:42 Triglycerides 147 Cholesterol 158.56 LDL Cholesterol Direct 104 H VLDL Cholesterol 29.0 HDL Cholesterol 31 L 04/22/19 04/22/19 04/22/19 10:39 14:41 21:00 Troponin I < 0.012 < 0.012 < 0.012 Impressions: Chest X-Ray 04/22/19 10:50 IMPRESSION: No evidence of acute cardiopulmonary process. Qualifiers - * PATIENT BEING DISCHARGED WITH ANY OF THE FOLLOWING DIAGNOSIS: No Acute Heart Failure - Is this a Heart Failure Patient?: No Plan Discharge Plan: Follow up with primary care physician one week. Follow up with bowling ball patcher as scheduled or as needed. Low fat, low sodium cardiac diet. Low carb diet. Monitor your blood sugars. Rest today. Return to the emergency department as needed. Take medications as prescribed. Time Spent: Less than 30 Minutes
== END 2019-04-23 13:05 | disposition home or self-care (01) ==
LOC: ER 10:23 → EH 15:10 → 4N 18:03
PROVIDERS: ADMIT Internal Medicine; ATTEND Internal Medicine
DX: R07.9 Chest pain, unspecified (principal); E11.65 Type 2 diabetes mellitus with hyperglycemia; E78.5 Hyperlipidemia, unspecified; I10 Essential (primary) hypertension; I25.10 Atherosclerotic heart disease of native coronary artery without angina pectoris; R06.00 Dyspnea, unspecified; E66.01 Morbid (severe) obesity due to excess calories; K21.9 Gastro-esophageal reflux disease without esophagitis; R20.2 Paresthesia of skin; M32.9 Systemic lupus erythematosus, unspecified; R10.13 Epigastric pain; E11.51 Type 2 diabetes mellitus with diabetic peripheral angiopathy without gangrene; Z82.49 Family history of ischemic heart disease and other diseases of the circulatory system; Z79.4 Long term (current) use of insulin
CPT/HCPCS: 93005; 99285; 36415 ×2; 82962 ×2; 85025; 80053; 84484; 83036; 80061; 71045; 93010; G0378 ×3; J1815 ×2; J3490

== ENCOUNTER → 2019-06-27 | Outpatient (CLI) | payer BC ==
[2019-06-27 18:28] LABS: ABSOLUTE BASOPHILS # (AUTO) 0.1 10^3/uL (0.0-0.2); ABSOLUTE EOSINOPHILS # (AUTO) 0.1 10^3/uL (0.0-0.6); ABSOLUTE LYMPHOCYTES (AUTO) 2.6 10^3/uL (0.5-4.7); ABSOLUTE MONOCYTES (AUTO) 0.5 10^3/uL (0.1-1.4); ABSOLUTE NEUT (AUTO) 6.6 10^3/uL (1.7-8.2); BASOPHILS % (AUTO) 0.7 % (0-2); HEMATOCRIT 35.9 % (36.0-47.0); HEMOGLOBIN 11.5 g/dL (12.0-15.5); LYMPHOCYTES % (AUTO) 26.4 % (13-45); MEAN CORPUSCULAR HEMOGLOBIN 28.7 pg (27.0-33.4); MEAN CORPUSCULAR HGB CONC 32.2 g/dL (32.0-36.0); MEAN CORPUSCULAR VOLUME 89 fl (80-97); MONOCYTES % (AUTO) 5.3 % (3-13); PLATELET COUNT 391 10^3/uL (150-450); RED BLOOD COUNT 4.03 10^6/uL (3.72-5.28); RED CELL DISTRIBUTION WIDTH 14.8 % (11.5-14.0); SEGMENTED NEUTROPHILS % (AUTO) 66.6 % (42-78); TOTAL CELLS COUNTED % (AUTO) 100 %
[2019-06-27 18:50] LABS: ALBUMIN 3.7 g/dL (3.5-5.0); ALKALINE PHOSPHATASE 99 U/L (38-126); AMYLASE 71 U/L (30-110); ANION GAP 10 (5-19); ASPARTATE AMINO TRANSFERASE 22 U/L (14-36); BILIRUBIN,DIRECT 0.2 mg/dL (0.0-0.4); BILIRUBIN,TOTAL 0.4 mg/dL (0.2-1.3); BLOOD UREA NITROGEN 17 mg/dL (7-20); CALCIUM 9.5 mg/dL (8.4-10.2); CARBON DIOXIDE 30 mmol/L (22-30); CHLORIDE 96 mmol/L (98-107); GLUCOSE 213 mg/dL (75-110); POTASSIUM 4.9 mmol/L (3.6-5.0); TOTAL PROTEIN 7.5 g/dL (6.3-8.2)
== END ==
LOC: OD 16:18
PROVIDERS: ATTEND Family Medicine
DX: L29.9 Pruritus, unspecified (principal); R10.13 Epigastric pain
CPT/HCPCS: 36415; 80053; 82150; 83690; 85025

== ENCOUNTER → 2019-09-03 | Outpatient (CLI) | payer BC ==
--- NOTE | 2019-09-03 15:11 | RADIOLOGY REPORT (SQ) ---
EXAM DESCRIPTION: CT CHEST WITH COMPLETED DATE/TIME: 09/03/2019 2:19 pm REASON FOR STUDY: J98.4 OTHER DISORDERS OF LUNG J98.4 OTHER DISORDERS OF LUNG COMPARISON: CT of the chest without contrast from 03/06/2019 TECHNIQUE: CT scan of the chest performed using helical scanning technique with dynamic intravenous contrast injection. Images reviewed with lung, soft tissue and bone windows. Reconstructed coronal and sagittal MPR and MIP images reviewed. All images stored on PACS. All CT scanners at this facility use dose modulation, iterative reconstruction, and/or weight based d osing when appropriate to reduce radiation dose to as low as reasonably achievable (ALARA). [facility]: Dose Right [facility]: CareDose [facility]: Dose Right [facility]: Teradose 4D [facility]: Spot Labs CONTRAST TYPE AND DOSE: Contrast/concentration: Isovue 350.00 mg/ml; Total Contrast Delivered: 68.0 ml; Total Saline Delivered: 55.0 ml RENAL FUNCTION: Creatinine 0.9 milligrams/deciliter RADIATION DOSE: CT Rad equipment meets quality standard of care and radiation dose reduction techniq ues were employed. CTDIvol: 19.5 mGy. DLP: 670 mGy-cm. . LIMITATIONS: None. FINDINGS: LUNGS AND PLEURA: The trachea main bronchi are patent. There is no consolidation, ground- glass opacification, pleural effusion or nodule/mass. HILAR AND MEDIASTINAL STRUCTURES: No mediastinal or hilar adenopathy. HEART AND VASCULAR STRUCTURES: No thoracic aortic aneurysm or dissection. The left ventricle is enla rged. There is no pericardial effusion. HARDWARE: None in the chest. UPPER ABDOMEN: No acute findings. THYROID AND OTHER SOFT TISSUES: No masses or adenopathy. BONES: No acute findings. OTHER: No other finding. IMPRESSION: Enlarged left ventricle. No acute cardiopulmonary process. TECHNICAL DOCUMENTATION: JOB ID: [id number] Quality ID # [id number]: Final reports with documentation of one or more dose reduction techniques (e.g., Au tomated exposure control, adjustment of the mA and/or kV according to patient size, use of iterative reconstruction technique) 2010 [employer]- All Rights Reserved Reading location - IP/workstation name: [email or web address]
== END ==
LOC: RAD 13:37
PROVIDERS: ATTEND Family Medicine
DX: J98.4 Other disorders of lung (principal)
CPT/HCPCS: 71260; 82565

== ENCOUNTER 2019-11-27 16:48 | Emergency (ER) | payer BC ==
[2019-11-27 17:23] LABS: ABSOLUTE BASOPHILS # (AUTO) 0.1 10^3/uL (0.0-0.2); ABSOLUTE EOSINOPHILS # (AUTO) 0.1 10^3/uL (0.0-0.6); ABSOLUTE MONOCYTES (AUTO) 0.5 10^3/uL (0.1-1.4); BASOPHILS % (AUTO) 0.8 % (0-2); EOSINOPHILS % (AUTO) 1.5 % (0-6); HEMATOCRIT 39.3 % (36.0-47.0); HEMOGLOBIN 13.5 g/dL (12.0-15.5); LYMPHOCYTES % (AUTO) 38.9 % (13-45); MEAN CORPUSCULAR HGB CONC 34.3 g/dL (32.0-36.0); MEAN CORPUSCULAR VOLUME 88 fl (80-97); MONOCYTES % (AUTO) 7.1 % (3-13); PLATELET COUNT 336 10^3/uL (150-450); RED BLOOD COUNT 4.49 10^6/uL (3.72-5.28); RED CELL DISTRIBUTION WIDTH 13.7 % (11.5-14.0); SEGMENTED NEUTROPHILS % (AUTO) 51.7 % (42-78); TOTAL CELLS COUNTED % (AUTO) 100 %; WHITE BLOOD COUNT 7.7 10^3/uL (4.0-10.5)
[2019-11-27 17:43] LABS: ALBUMIN 3.9 g/dL (3.5-5.0); ALKALINE PHOSPHATASE 124 U/L (38-126); ANION GAP 8 (5-19); ASPARTATE AMINO TRANSFERASE 27 U/L (14-36); BILIRUBIN,DIRECT 0.3 mg/dL (0.0-0.4); BILIRUBIN,TOTAL 0.4 mg/dL (0.2-1.3); BLOOD UREA NITROGEN 14 mg/dL (7-20); CALCIUM 9.5 mg/dL (8.4-10.2); CARBON DIOXIDE 32 mmol/L (22-30); CHLORIDE 97 mmol/L (98-107); GLUCOSE 199 mg/dL (75-110); POTASSIUM 4.2 mmol/L (3.6-5.0); TOTAL PROTEIN 8.1 g/dL (6.3-8.2)
[2019-11-27] MEDS ORDERED: LABETALOL HCL INJ 20 MG/4 ML DISP.SYRIN IV ONE (17:57)
--- NOTE | 2019-11-27 19:13 | ER Document Report ---
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 On arrival here the patient has a blood pressure of 185/154. Patient states that she follows with pulmonology due to a nonproductive cough that she has had for 3 years. Patient reports that she has not missed her blood pressure medication today or anytime recently (losartan/HCTZ). Patient has been on that and metoprolol combined in the past but she is not taking metoprolol and she does not know why. Patient states she has had frequent headaches recently and mentions that she has "felt tired for weeks". Patient denies any shortness of breath, chest pain, fevers, or sick contacts. TRAVEL OUTSIDE OF THE [place] IN LAST 30 DAYS: No - Related Data Allergies/Adverse Reactions: cephalexin [From Keflex] Allergy (Intermediate, Verified 11/27/19 16:50) HIVED, BUMPS, RED SKIN Penicillins Allergy (Intermediate, Verified 11/27/19 16:50) HIVES, BUMPS, RED SKIN onion Allergy (Severe, Uncoded 11/27/19 16:50) HIVES, ITCHING, RED SKIN Past Medical History - General Information source: Patient, [facility] Records, Outside Facility Records - Social History Smoking Status: Former Smoker - quit at age 25 Cigarette use (# per day): No Frequency of alcohol use: None Drug Abuse: None Lives with: Family Family History: Reviewed & Not Pertinent, CAD, CVA Patient has suicidal ideation: No Patient has homicidal ideation: No - Past Medical History Cardiac Medical History: Reports: Hx Coronary Artery Disease, Hx Hypercholesterolemia, Hx Hypertension Denies: Hx Congestive Heart Failure, Hx Heart Attack Pulmonary Medical History: Denies: Hx Asthma, Hx Bronchitis, Hx COPD, Hx Pneumonia, Hx Tuberculosis Neurological Medical History: Denies: Hx Cerebrovascular Accident, Hx Seizures, Hx Parkinson's Disease Endocrine Medical History: Reports: Hx Diabetes Mellitus Type 2 Renal/ Medical History: Reports: Hx Kidney Stones. Denies: Hx End Stage Renal Disease, Hx Peritoneal Dialysis GI Medical History: Denies: Hx Cirrhosis, Hx Gastroesophageal Reflux Disease, Hx Ulcer Musculoskeletal Medical History: Reports Hx Arthritis, Denies Hx Multiple S clerosis Psychiatric Medical History: Denies: Hx Bipolar Disorder, Hx Depression, Hx Schizophrenia Past Surgical History: Reports: Hx Cardiac Catheterization, Hx Genitourinary Surgery - vaginal surgery age 20, Hx Gynecologic Surgery, Hx Kidney (Renal Surgery) - kidney stone removal - Immunizations Hx Diphtheria, Pertussis, Tetanus Vaccination: No Hx Pneumococcal Vaccination: 09/10/13 Review of Systems - Review of Systems Constitutional: See HPI, Malaise. denies: Fever EENT: No symptoms reported Cardiovascular: See HPI, Other - elevated blood pressures. denies: Chest pain Respiratory: denies: Short of breath Gastrointestinal: No symptoms reported Genitourinary: No symptoms reported Female Genitourinary: No symptoms reported Musculoskeletal: No symptoms reported Skin: No symptoms reported Hematologic/Lymphatic: No symptoms reported Neurological/Psychological: See HPI, Headaches -: Yes All other systems reviewed and negative Physical Exam - Vital signs Vitals: Pulse Ox 99 11/27/19 16:58 - Notes Notes: Physical Exam: General: Alert, appears well. HEENT: Normocephalic. Atraumatic. PERRL. Extraocular movements intact. Oropharynx clear. Neck: Supple. Non-tender. Respiratory: No respiratory distress. Clear and equal breath sounds bilaterally. Cardiovascular: Regular rate and rhythm. Abdominal: Morbidly obese. Non-tender. No distension. Normal Bowel Sounds. Back: Tenderness with palpation of the sternocleidomastoid muscle on the left. Extremities: Moves all four extremities. Upper extremities: Tenderness with palpation of the sternocleidomastoid muscle on the left. Lower extremities: Normal inspection. No edema. Normal ROM. Neurological: Normal cognition. AAOx4. Normal speech. Psychological: Normal affect. Normal Mood. Skin: Warm. Dry. Normal color. Course - Vital Signs Vital signs: Temp Pulse Resp BP Pulse Ox 20 160/100 H 99 11/27/19 18:01 11/27/19 18:45 11/27/19 18:01 - Laboratory Result Diagrams: 11/27/19 17:12 11/27/19 17:12 Laboratory results interpreted by me: 11/27/19 17:12 Sodium 136.6 L Chloride 97 L Carbon Dioxide 32 H Glucose 199 H - EKG Interpretation by Me EKG shows normal: Sinus rhythm Rate: Normal Rhythm: NSR - NSR Nl axis [address] eleavation or depression my interpretation. 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 Follow a low sodium diet. Please return here for any problems or concerns including, but not limited to chest pain, shortness of breath or other concerns. Prescriptions: Hydralazine HCl [Apresoline 10 mg Tablet] 10 mg PO TID #60 tab Forms: Return to Work Referrals: FRANNY LUZ MD [Primary Care Provider] - Follow up as needed I personally performed the services described in the documentation, reviewed and edited the documentation which was dictated to the scribe in my presence, and it accurately records my words and actions.
[2019-11-27 19:19] VITALS: BP 133/85
--- NOTE | 2019-11-27 21:19 | EKG REPORT ---
SEVERITY:- ABNORMAL ECG - SINUS RHYTHM LEFT VENTRICULAR HYPERTROPHY : Confirmed by: Ashia Dick 27-Nov-2019 21:18:18
== END 2019-11-27 19:18 | disposition home or self-care (01) ==
LOC: ER 16:48
DX: I10 Essential (primary) hypertension (principal); Z79.899 Other long term (current) drug therapy; R05 Cough; R51 Headache; R53.81 Other malaise; I25.10 Atherosclerotic heart disease of native coronary artery without angina pectoris; E11.9 Type 2 diabetes mellitus without complications; Z87.891 Personal history of nicotine dependence; Z88.0 Allergy status to penicillin; Z91.018 Allergy to other foods; Z88.1 Allergy status to other antibiotic agents
CPT/HCPCS: 93005; 36415; 85025; 80053; 93010; J3490

== ENCOUNTER 2019-12-31 12:21 | Emergency (ER) | payer BC ==
[2019-12-31] MEDS ORDERED: ASPIRIN 81 MG TABLET, CHEWABLE PO ONE (12:36)
--- NOTE | 2019-12-31 12:38 | ER Document Report ---
ED Medical Screen (RME) - General Chief Complaint: Chest Pain Stated Complaint: CHEST PAIN/POSSIBLE HEART ATTACK Time Seen by Provider: 12/31/19 12:31 Primary Care Provider: FRANNY LUZ MD [Primary Care Provider] - Follow up as needed Information source: Patient Notes: 39-year-old female with history of chronic lung disease, small vessel disease, lupus, diabetes presents to the emergency department with complaints of sharp chest pain on the left side that radiates straight to her back. Patient reports that she has a chronic cough due to her chronic lung disease so that is not new. Denies fever vomiting. Reports she has a headache but that has been there before the virus. No known exposure to COVID-19. She reports that sharp pain comes and goes. I have greeted and performed a rapid initial assessment of this patient. A comprehensive ED assessment and evaluation of the patient, analysis of test results and completion of the medical decision making process will be conducted by additional ED providers. TRAVEL OUTSIDE OF THE [place] IN LAST 30 DAYS: No - Related Data Allergies/Adverse Reactions: cephalexin [From Keflex] Allergy (Intermediate, Verified 12/31/19 12:36) HIVED, BUMPS, RED SKIN Penicillins Allergy (Intermediate, Verified 12/31/19 12:36) HIVES, BUMPS, RED SKIN onion Allergy (Severe, Uncoded 12/31/19 12:36) HIVES, ITCHING, RED SKIN Past Medical History - Past Medical History Cardiac Medical History: Reports: Hx Coronary Artery Disease, Hx Hypercholesterolemia, Hx Hypertension Denies: Hx Congestive Heart Failure, Hx Heart Attack Pulmonary Medical History: Denies: Hx Asthma, Hx Bronchitis, Hx COPD, Hx Pneumonia, Hx Tuberculosis Neurological Medical History: Denies: Hx Cerebrovascular Accident, Hx Seizures, Hx Parkinson's Disease Endocrine Medical History: Reports: Hx Diabetes Mellitus Type 2 Renal/ Medical History: Reports: Hx Kidney Stones. Denies: Hx End Stage Renal Disease, Hx Peritoneal Dialysis GI Medical History: Denies: Hx Cirrhosis, Hx Gastroesophageal Reflux Disease, Hx Ulcer Musculoskeltal Medical History: Reports Hx Arthritis, Denies Hx Multiple Sclerosis Psychiatric Medical History: Denies: Hx Bipolar Disorder, Hx Depression, Hx Schizophrenia Past Surgical History: Reports: Hx Cardiac Catheterization, Hx Genitourinary Surgery - vaginal surgery age 20, Hx Gynecologic Surgery, Hx Kidney (Renal Surgery) - kidney stone removal - Immunizations Hx Diphtheria, Pertussis, Tetanus Vaccination: No Doctor's Discharge - Discharge Referrals: FRANNY LUZ MD [Primary Care Provider] - Follow up as needed
[2019-12-31 13:11] LABS: ABSOLUTE EOSINOPHILS # (AUTO) 0.1 10^3/uL (0.0-0.6); ABSOLUTE LYMPHOCYTES (AUTO) 2.1 10^3/uL (0.5-4.7); ABSOLUTE MONOCYTES (AUTO) 0.9 10^3/uL (0.1-1.4); ABSOLUTE NEUT (AUTO) 4.2 10^3/uL (1.7-8.2); BASOPHILS % (AUTO) 0.6 % (0-2); EOSINOPHILS % (AUTO) 1.1 % (0-6); HEMATOCRIT 40.6 % (36.0-47.0); HEMOGLOBIN 13.4 g/dL (12.0-15.5); LYMPHOCYTES % (AUTO) 28.6 % (13-45); MEAN CORPUSCULAR HEMOGLOBIN 28.9 pg (27.0-33.4); MEAN CORPUSCULAR HGB CONC 32.9 g/dL (32.0-36.0); MEAN CORPUSCULAR VOLUME 88 fl (80-97); MONOCYTES % (AUTO) 12.2 % (3-13); PLATELET COUNT 388 10^3/uL (150-450); RED BLOOD COUNT 4.63 10^6/uL (3.72-5.28); RED CELL DISTRIBUTION WIDTH 13.8 % (11.5-14.0); SEGMENTED NEUTROPHILS % (AUTO) 57.5 % (42-78); TOTAL CELLS COUNTED % (AUTO) 100 %; WHITE BLOOD COUNT 7.3 10^3/uL (4.0-10.5)
[2019-12-31 13:31] LABS: ALKALINE PHOSPHATASE 126 U/L (38-126); ANION GAP 7 (5-19); ASPARTATE AMINO TRANSFERASE 34 U/L (14-36); BILIRUBIN,DIRECT 0.4 mg/dL (0.0-0.4); BILIRUBIN,TOTAL 0.5 mg/dL (0.2-1.3); BLOOD UREA NITROGEN 19 mg/dL (7-20); CALCIUM 9.5 mg/dL (8.4-10.2); CARBON DIOXIDE 32 mmol/L (22-30); CHLORIDE 96 mmol/L (98-107); CREATINE KINASE 71 U/L (30-135); GLUCOSE 212 mg/dL (75-110); POTASSIUM 4.8 mmol/L (3.6-5.0); TOTAL PROTEIN 8.3 g/dL (6.3-8.2)
--- NOTE | 2019-12-31 13:36 | ER Document Report ---
ED General - General Chief Complaint: Chest Pain Stated Complaint: CHEST PAIN/POSSIBLE HEART ATTACK Time Seen by Provider: 12/31/19 12:31 Primary Care Provider: FRANNY LUZ MD [Primary Care Provider] - Follow up as needed Mode of Arrival: Ambulatory Information source: Patient Notes: 39-year-old female presented to ED for complaint of chest pain. She states this started last night. She states the pain goes to the left side of her chest through her neck through to her back and down her left arm. She states she does have a history of chronic lung disease, small vessel heart disease, lupus diabetes, and headaches. She states that she has been to a [facility] and has had a heart catheterization. She states that they told her that this was a small vessel heart disease that was genetic and she had her whole life but as she got older it is just progressed. She states she has had chest pain in the past but never as bad as it was today and never that went through to her back up her neck and down her arm. She states she has been stressed due to all of this talk about the coronavirus and she wanted to be sure that she was okay. She states it was very sharp pain now it is down to a 2. She states EMS came to the work gave her baby aspirin and nitro under the tongue and it has improved the pain a lot she no longer has it through her back and down her arm. Patient is alert oriented respirations regular nonlabored speaking in full sentences. TRAVEL OUTSIDE OF THE [place] IN LAST 30 DAYS: No - HPI Onset: Yesterday Onset/Duration: Intermittent, Better Quality of pain: Sharp Severity: Mild Pain Level: 2 Associated symptoms: Chest pain, Nonproductive cough - Chronic due to chronic lung disease. denies: Productive cough, Fever Exacerbated by: Denies Relieved by: Other - Did not nitro and aspirin improved the pain Similar symptoms previously: Yes Recently seen / treated by doctor: No - For this bad - Related Data Allergies/Adverse Reactions: cephalexin [From Keflex] Allergy (Intermediate, Verified 12/31/19 12:41) HIVED, BUMPS, RED SKIN Penicillins Allergy (Intermediate, Verified 12/31/19 12:41) HIVES, BUMPS, RED SKIN onion Allergy (Severe, Uncoded 12/31/19 12:36) HIVES, ITCHING, RED SKIN Past Medical History - General Information source: Patient - Social History Smoking Status: Former Smoker Frequency of alcohol use: None Drug Abuse: None 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 Lives with: Alone Family History: Reviewed & Not Pertinent, CAD, CVA Patient has suicidal ideation: No Patient has homicidal ideation: No - Past Medical History Cardiac Medical History: Reports: Hx Coronary Artery Disease, Hx Hypercholesterolemia, Hx Hypertension, Other - defect small vessel heart disease Pulmonary Medical History: Reports: Other - Chronic lung disease EENT Medical History: Reports: None Neurological Medical History: Reports: Hx Migraine Endocrine Medical History: Reports: Hx Diabetes Mellitus Type 2 Renal/ Medical History: Reports: Hx Kidney Stones Malignancy Medical History: Reports: None GI Medical History: Reports: None Musculoskeletal Medical History: Reports Hx Arthritis, Reports Hx Systemic Lupus Erythematosus Skin Medical History: Reports None Psychiatric Medical History: Reports: None Traumatic Medical History: Reports: None Infectious Medical History: Reports: None Past Surgical History: Reports: Hx Cardiac Catheterization, Hx Genitourinary Surgery - vaginal surgery age 20, Hx Gynecologic Surgery, Hx Kidney (Renal Surgery) - kidney stone removal - Immunizations Hx Diphtheria, Pertussis, Tetanus Vaccination: No Hx Pneumococcal Vaccination: 09/10/13 Review of Systems - Review of Systems Constitutional: No symptoms reported EENT: No symptoms reported Cardiovascular: Chest pain Respiratory: Cough - Chronic nonproductive Gastrointestinal: No symptoms reported Genitourinary: No symptoms reported Female Genitourinary: No symptoms reported Musculoskeletal: No symptoms reported Skin: No symptoms reported Hematologic/Lymphatic: No symptoms reported Neurological/Psychological: No symptoms reported -: Yes All other systems reviewed and negative Physical Exam - Vital signs Vitals: Pulse Ox 99 12/31/19 12:35 Interpretation: Normal - General General appearance: Appears well, Alert - HEENT Head: Normocephalic, Atraumatic Eyes: Normal Pupils: PERRL - Respiratory Respiratory status: No respiratory distress Chest status: Nontender. No: Tender, Pain on movement, Pain with cough, Pain with deep breathing Breath sounds: Normal. No: Nonproductive cough Chest palpation: Normal - Cardiovascular Rhythm: Regular Heart sounds: Normal auscultation Murmur: No Normal capillary refill: Yes - Abdominal Inspection: Normal Distension: No distension Bowel sounds: Normal Tenderness: Nontender Organomegaly: No organomegaly - Back Back: Normal, Nontender - Extremities General upper extremity: Normal inspection, Nontender, Normal color, Normal ROM, Normal temperature General lower extremity: Normal inspection, Nontender, Normal color, Normal ROM, Normal temperature, Normal weight bearing. No: Ronal's sign - Neurological Neuro grossly intact: Yes Cognition: Normal Orientation: AAOx4 Marsha Coma Scale Eye Opening: Spontaneous [place] Coma Scale Verbal: Oriented [place]ha Coma Scale Motor: Obeys Commands Marsha Coma Scale Total: 15 Speech: Normal Motor strength normal: LUE, RUE, LLE, RLE Sensory: Normal - Psychological Associated symptoms: Normal affect, Normal mood - Skin Skin Temperature: Warm Skin Moisture: Dry Skin Color: Normal Course - Re-evaluation Re-evalutation: 12/31/19 14:[address] suarez for the change in EKG he reviewed the new EKG. I then got a report that her troponin was 0.26. I then consulted [facility] for transfer spoke with a Dr. Liu who has accepted the patient for transfer to [facility] with a Dr. Person as the attending. Transfer center stated they would call with a bed assignment when 1 was available. 12/31/19 19:59 Dr. suarez did go in and see the patient after I assessed her. He also examined the patient just before transfer. The troponin did return after the patient had left the building. Her first troponin was 0.26-second troponin was 0.465. The nurse did call this to the nurse at [facility] to let them know that her troponin had risen. - Vital Signs Vital signs: Temp Pulse Resp BP Pulse Ox 22 H 150/126 H 100 12/31/19 16:01 12/31/19 16:01 12/31/19 16:01 - Laboratory Result Diagrams: 12/31/19 12:10 12/31/19 12:10 Laboratory results interpreted by me: 12/31/19 12:10 Sodium 135.0 L Chloride 96 L Carbon Dioxide 32 H Glucose 212 H Total Protein 8.3 H - Diagnostic Test Radiology reviewed: Image reviewed, Reports reviewed Discharge - Discharge Clinical Impression: Elevated troponin, Non-STEMI (non-ST elevated myocardial infarction) Hypertension Qualifiers: Hypertension type: unspecified Qualified Code(s): I10 - Essential (primary) hyp ertension Chest pain Qualifiers: Chest pain type: unspecified Qualified Code(s): R07.9 - Chest pain, unspecified Condition: Good Disposition: [facility] Referrals: FRANNY LUZ MD [Primary Care Provider] - Follow up as needed
--- NOTE | 2019-12-31 13:36 | RADIOLOGY REPORT (SQ) ---
EXAM DESCRIPTION: CHEST SINGLE VIEW COMPLETED DATE/TIME: 12/31/2019 1:19 pm REASON FOR STUDY: chest pain COMPARISON: 04/22/2019 EXAM PARAMETERS: NUMBER OF VIEWS: One view. TECHNIQUE: Single frontal radiographic view of the chest acquired. RADIATION DOSE: NA LIMITATIONS: None. FINDINGS: LUNGS AND PLEURA: No opacities, masses or pneumothorax. No pleural effusion. MEDIASTINUM AND HILAR STRUCTURES: No masses. Contour normal. HEART AND VASCULAR STRUCTURES: Cardiomegaly. No pulmonary edema. BONES: No acute findings. HARDWARE: None in the chest. OTHER: No other significant finding. IMPRESSION: Cardiomegaly without pulmonary edema. TECHNICAL DOCUMENTATION: JOB ID: [id number] 2010 [employer]- All Rights Reserved Reading location - IP/workstation name: [email or web address]
[2019-12-31 13:42] LABS: CREATINE KINASE MB 1.39 ng/mL (<4.55)
[2019-12-31 13:47] LABS: TROPONIN I 0.263 ng/mL
--- NOTE | 2019-12-31 15:05 | ER Document Report ---
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 Patient used to be on nitroglycerin in a brown bottle but was taken off of this by her personal doctor years ago. She reports she had chest pain yesterday morning and this spread to her left lateral neck her left scapula and left shoulder. YASHIRA Blanco saw this patient and appropriately treated her for changes in EKG and positive troponin. Patient took her losartan only 30 minutes prior to my exam at 1500 today. Patient denies any shortness of breath or diaphoresis. TRAVEL OUTSIDE OF THE [place] 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 Denies: Hx Cerebrovascular Accident, Hx Seizures, Hx Parkinson's Disease Endocrine Medical History: Reports: Hx Diabetes Mellitus Type 2 Renal/ Medical History: Reports: Hx Kidney Stones. Denies: Hx End Stage Renal Disease, Hx Peritoneal Dialysis Malignancy Medical History: Reports: None GI Medical History: Reports: None. Denies: Hx Cirrhosis, Hx Gastroesophageal Reflux Disease, Hx Ulcer Musculoskeletal Medical History: Reports Hx Arthritis, Denies Hx Multiple Sclerosis, Reports Hx Systemic Lupus Erythematosus Skin Medical History: Reports None Psychiatric Medical History: Reports: None Denies: Hx Bipolar Disorder, Hx Depression, Hx Schizophrenia Traumatic Medical History: Reports: None Infectious Medical History: Reports: None Past Surgical History: Reports: Hx Cardiac Catheterization, Hx Genitourinary Surgery - vaginal surgery age 20, Hx Gynecologic Surgery, Hx Kidney (Renal Surgery) - kidney stone removal - Immunizations Hx Diphtheria, Pertussis, Tetanus Vaccination: No Hx Pneumococcal Vaccination: 09/10/13 Review of Systems - Review of Systems Constitutional: No symptoms reported EENT: No symptoms reported Cardiovascular: See HPI, Chest pain Respiratory: No symptoms reported Gastrointestinal: No symptoms reported Genitourinary: No symptoms reported Female Genitourinary: No symptoms reported Musculoskeletal: No symptoms reported Skin: No symptoms reported Hematologic/Lymphatic: No symptoms reported Neurological/Psychological: No symptoms reported Physical Exam - Vital signs Vitals: Pulse Ox 99 12/31/19 12:35 Interpretation: Normal - General General appearance: Appears well - Hospital patient does not meet any exclusion criteria for TPA at this time. I have reviewed the risks and benefits of administration of TPA with the family at the bedside. We have reviewed the risks of intracranial bleed and the possible benefits of increased functional independence at 90 days with the use of TPA. - HEENT Head: Normocephalic Eyes: Normal Conjunctiva: Normal Cornea: Normal Extraocular movements intact: Yes Eyelashes: Normal Pupils: PERRL Pharynx: Normal Neck: Normal - Respiratory Respiratory status: No respiratory distress Chest status: Nontender Breath sounds: Normal Chest palpation: Normal, Other - Exceptionally large mammary tissue - Cardiovascular Rhythm: Regular Heart sounds: Normal auscultation Murmur: No Friction rub: No Param's crunch: No - Abdominal Inspection: Normal Distension: No distension Bowel sounds: Normal Tenderness: Nontender Organomegaly: No organomegaly - Back Back: Normal - Extremities General upper extremity: Normal inspection General lower extremity: Normal inspection - Neurological Neuro grossly intact: Yes Cognition: Normal Orientation: AAOx4 Marsha Coma Scale Eye Opening: Spontaneous [place] Coma Scale Verbal: Oriented Speech: Normal Cranial nerves: Normal Cerebellar coordination: Normal Motor strength normal: LUE, RUE, LLE, RLE - Psychological Associated symptoms: Normal affect - Skin Skin Temperature: Warm Skin Moisture: Dry Course - Vital Signs Vital signs: Temp Pulse Resp BP Pulse Ox 22 H 150/126 H 100 12/31/19 16:01 12/31/19 16:01 12/31/19 16:01 - Laboratory Result Diagrams: 12/31/19 12:10 12/31/19 12:10 Laboratory results interpreted by me: 12/31/19 12:10 Sodium 135.0 L Chloride 96 L Carbon Dioxide 32 H Glucose 212 H Total Protein 8.3 H Critical Care Note - Critical Care Note Total time excluding time spent on procedures (mins): 60 Comments: I discussed the blood pressure with the patient which was 188/117 during my exam. Herber ANTON was taking a manual pressure in the right arm and found 180/100. Patient had just taken her losartan 30 minutes prior and advised against any nitro drip in case she dropped her pressure excessively. She was chest pain-free on my exam.. I saw this patient at 1630 as well and patient stable and troponins were 0.4 Discharge - Discharge Clinical Impression: Elevated troponin Hypertension Qualifiers: Hypertension type: unspecified Qualified Code(s): I10 - Essential (primary) hypertension Chest pain Qualifiers: Chest pain type: unspecified Qualified Code(s): R07.9 - Chest pain, unspecified Condition: Good Disposition: [facility] Referrals: FRANNY LUZ MD [Primary Care Provider] - Follow up as needed
[2019-12-31] MEDS ORDERED: NORMAL SALINE 500 ML IV ONE (15:09)
--- NOTE | 2019-12-31 15:25 | EKG REPORT ---
SEVERITY:- ABNORMAL ECG - SINUS RHYTHM LEFT VENTRICULAR HYPERTROPHY BORDERLINE T ABNORMALITIES, INFERIOR LEADS BORDERLINE PROLONGED QT INTERVAL : Confirmed by: Joe Drake MD 31-Dec-2019 15:24:30
--- NOTE | 2019-12-31 15:26 | EKG REPORT ---
SEVERITY:- ABNORMAL ECG - SINUS TACHYCARDIA PROBABLE LEFT ATRIAL ABNORMALITY LEFT VENTRICULAR HYPERTROPHY ABNORMAL T, CONSIDER ISCHEMIA, INFERIOR LEADS BORDERLINE PROLONGED QT INTERVAL : Confirmed by: Joe Drake MD 31-Dec-2019 15:25:27
[2019-12-31 16:05] VITALS: BP 150/126
[2019-12-31 20:12] LABS: APPEARANCE,URINE CLEAR; BILIRUBIN,URINE NEGATIVE (NEGATIVE); COLOR,URINE YELLOW; GLUCOSE, URINE 50 mg/dL (NEGATIVE); KETONES,URINE NEGATIVE (NEGATIVE); LEUKOCYTE ESTERASE,URINE NEGATIVE (NEGATIVE); NITRITE,URINE NEGATIVE (NEGATIVE); PROTEIN,URINE 30 mg/dL (NEGATIVE); UROBILINOGEN,URINE NEGATIVE mg/dL (<2.0)
== END 2019-12-31 17:16 | disposition short-term general hospital (02) ==
LOC: ER 12:21
DX: I21.4 Non-ST elevation (NSTEMI) myocardial infarction (principal); I25.10 Atherosclerotic heart disease of native coronary artery without angina pectoris; I10 Essential (primary) hypertension; R07.9 Chest pain, unspecified; E11.9 Type 2 diabetes mellitus without complications; J98.4 Other disorders of lung; R05 Cough; Z87.891 Personal history of nicotine dependence; Z88.1 Allergy status to other antibiotic agents; Z88.0 Allergy status to penicillin; Z91.018 Allergy to other foods
CPT/HCPCS: 93005; 99291; 96360; 36415; 82553; 82550; 84703; 85025; 80053; 81001; 84484; 71045; 93010; J7040

== ENCOUNTER 2020-01-14 17:12 | Emergency (ER) | payer BC ==
--- NOTE | 2020-01-14 17:35 | ER Document Report ---
ED Resuscitation - General Chief Complaint: Cardiac Arrest Stated Complaint: CARDIAC ARREST Time Seen by Provider: 01/14/20 17:34 Primary Care Provider: FRANNY LUZ MD [Primary Care Provider] - Follow up as needed Mode of Arrival: Medic Information source: Emergency Med Personnel Notes: 39-year-old woman brought to the emergency department by EMS in full cardiac arrest. Apparently was traveling with her brother in the car when she began to complain of chest discomfort. He states that she became very short of breath and EMS was called, apparently shortly after getting into the ambulance the patient became unresponsive and pulseless. LMA was placed CPR was begun and patient was given 1 dose of epinephrine in route to the hospital. Upon arrival to the hospital the patient was pulseless cardiac activity, CPR in progress. LMA was removed and a 8 Irish ET tube placed using the glide scope. Multiple doses (total of 5) of epinephrine were given throughout the resuscitation attempt. Patient has no response to the epinephrine. Bedside ultrasound was performed patient was in complete cardiac standstill. Sodium bicarb 1 amp was given and the patient was also given a dose of epinephrine with no response. Repeat bedside ultrasound revealed cardiac standstill. Patient was pronounced at 1722. TRAVEL OUTSIDE OF THE [place] IN LAST 30 DAYS: No - Related Data Allergies/Adverse Reactions: cephalexin [From Keflex] Allergy (Intermediate, Verified 12/31/19 12:41) HIVED, BUMPS, RED SKIN Penicillins Allergy (Intermediate, Verified 12/31/19 12:41) HIVES, BUMPS, RED SKIN onion Allergy (Severe, Uncoded 12/31/19 12:36) HIVES, ITCHING, RED SKIN Past Medical History - Social History Smoking Status: Former Smoker Family History: Reviewed & Not Pertinent, CAD, CVA - Past Medical History Cardiac Medical History: Reports: Hx Coronary Artery Disease, Hx Hypercholesterolemia, Hx Hypertension Denies: Hx Congestive Heart Failure, Hx Heart Attack Pulmonary Medical History: Denies: Hx Asthma, Hx Bronchitis, Hx COPD, Hx Pneumonia, Hx Tuberculosis Neurological Medical History: Reports: Hx Migraine. Denies: Hx Cerebrovascular Accident, Hx Seizures, Hx Parkinson's Disease Endocrine Medical History: Reports: Hx Diabetes Mellitus Type 2 Renal/ Medical History: Reports: Hx Kidney Stones. Denies: Hx End Stage Renal Disease, Hx Peritoneal Dialysis GI Medical History: Denies: Hx Cirrhosis, Hx Gastroesophageal Reflux Disease, Hx Ulcer Musculoskeletal Medical History: Reports Hx Arthritis, Denies Hx Multiple Sclerosis, Reports Hx Systemic Lupus Erythematosus Psychiatric Medical History: Denies: Hx Bipolar Disorder, Hx Depression, Hx Schizophrenia Past Surgical History: Reports: Hx Cardiac Catheterization, Hx Genitourinary Surgery - vaginal surgery age 20, Hx Gynecologic Surgery, Hx Kidney (Renal Surgery) - kidney stone removal - Immunizations Hx Diphtheria, Pertussis, Tetanus Vaccination: No Hx Pneumococcal Vaccination: 09/10/13 Review of Systems - Review of Systems -: Yes ROS unobtainable due to patient's medical condition - Patient full code, unresponsive Physical Exam - Notes Notes: PHYSICAL EXAMINATION: Physical Exam: General: Unresponsive morbidly obese female HEENT: NC/AT, pupils dilated and unresponsive, oropharynx intact Neck: supple Lungs: Bagged resp good air movement. CVS: CPR in progress, chest compression, + the pulse Abdomen: Soft, nondistended Ext: No edema Neuro: Responsiveness Skin: Intact no open lesions, no rash Course - Re-evaluation Re-evalutation: 01/14/20 19:23 Patient was on responsive to the resuscitation to the efforts. Pronounce at 1722. I had a discussion with the family and explained likely acute myocardial infarction unresponsive to our resuscitative efforts, complete cardiac standstill using ultrasound at the bedside. The family were grateful for our efforts and the certificate was completed by me in the emergency department this evening. Cause of acute myocardial infarction likely due to acute coronary obstruction, dyslipidemia, hypertension, diabetes, morbid obesity. Procedures - Intubation Orotracheal Airway evaluation: Obese Mallampati Classification: Class 3 Intubation method: Orotracheal Blade type: Rick Equipment used: Glidescope ETT size: 8.0 ETT secured at: Lips ETT secured at (cm): 21 Breath Sounds after Intubation: Equal End tidal CO2 confirmed: Yes Discharge - Discharge Clinical Impression: Cardiopulmonary arrest Acute myocardial infarction Qualifiers: Myocardial infarction type: unspecified Involved coronary artery: unspecified coronary artery Qualified Code(s): I21.9 - Acute myocardial infarction, unspecified Disposition: Referrals: FRANNY LUZ MD [Primary Care Provider] - Follow up as needed
[2020-01-14] MEDS ORDERED: EPINEPHRINE INJ 1 MG/10 ML DISP.SYRIN ONE (19:18)
[2020-01-14] MEDS ORDERED: SODIUM BICARBONATE 8.4% INJ 50 MEQ/50 ML DISP.SYRIN ONE (19:18)
== END 2020-01-14 20:28 | disposition expired ==
LOC: ER 17:12
DX: I46.9 Cardiac arrest, cause unspecified (principal); I21.9 Acute myocardial infarction, unspecified; R06.02 Shortness of breath; E66.01 Morbid (severe) obesity due to excess calories; I25.10 Atherosclerotic heart disease of native coronary artery without angina pectoris; E78.00 Pure hypercholesterolemia, unspecified; I10 Essential (primary) hypertension; Z88.0 Allergy status to penicillin; Z88.3 Allergy status to other anti-infective agents; Z87.442 Personal history of urinary calculi
CPT/HCPCS: 99285; 92950; 31500; J0171; J3490